=== PATIENT | male | born 1960 | race Caucasian/White ===

== ENCOUNTER 2019-08-29 11:12 | Emergency (ER) | payer OTHER, SELFPAY ==
[2019-08-29 11:17] VITALS: BP 171/109; PULSE 96; RESP 16; TEMP 36.6; O2SAT 98; BMI 23.7
--- NOTE | 2019-08-29 11:49 | XRR_ITS ---
PROCEDURE INFORMATION: Exam: XR Right Shoulder Exam date and time: 08/29/2019 12:09 PM Age: 58 years old Clinical indication: Right; Patient HX: Pain, shoulder popped in and out TECHNIQUE: Imaging protocol: XR Right shoulder. Views: 2 or more views. COMPARISON: No relevant prior studies available. FINDINGS: Bones/joints: There is moderate glenohumeral joint degeneration, with joint space loss. Mild widening of the acromioclavicular joint may be postoperative in nature. Soft tissues: Normal. XR/XR shoulder RT min 2V* [id number] IMPRESSION: No acute abnormality.
--- NOTE | 2019-08-29 11:49 | XRR_ITS ---
PROCEDURE INFORMATION: Exam: XR Right Clavicle, Complete Exam date and time: 08/29/2019 12:09 PM Age: 58 years old Clinical indication: Pain; Right; Patient HX: Shoulder popped in and out; Additional info: Pain/injury TECHNIQUE: Imaging protocol: XR Right clavicle complete. Any number of views. COMPARISON: No relevant prior studies available. FINDINGS: Bones/joints: There is no acute fracture or dislocation. There is widening of the acromioclavicular joint, potentially postoperative in nature. Clinical correlation is recommended. Soft tissues: Normal. XR/[place] [id number] IMPRESSION: No acute abnormality.
--- NOTE | 2019-08-29 12:51 | W.ED.GENADLT ---
HPI - General Adult General: Chief complaint: General Medical Stated complaint: knot in [place] Time Seen by Provider: 08/29/19 12:42 Source: patient Mode of arrival: ambulatory Limitations: no limitations History of Present Illness: HPI narrative: Mr. Dunlap is a nice 58-year-old male who comes in complaining of right mid clavicle pain. Patient states he dislocated his shoulder not long ago and since that time he has had continued pain to the mid right clavicle. He denies any pain to the medial or lateral portion but only to the middle portion and he states there is associated swelling. Associated symptoms: Deny chest pain, dyspnea, headache(s), nausea, rash, palpitations, syncope or vomiting Review of Systems Const: Denies: fever(s) Eyes: Denies: change in vision ENMT: Denies: throat pain Card: Denies: chest pain, palpitations, syncope, pre-syncope or dyspnea on exertion Resp: Denies: dyspnea, productive cough or non-productive cough GI: Denies: abdominal pain, nausea, vomiting or diarrhea : Denies: flank pain, dysuria, urinary frequency or urinary urgency Musc: Denies: neck pain, back pain or extremity pain Skin/Breast: Denies: rash or pruritus Neuro: Denies: headache(s), numbness in extremities, weakness in extremities or dizziness Jasbir/Lymph: Denies: easy bruising or easy bleeding All/Imm: Denies: urticaria PFSH ED PFSH: Social History Smoking and tobacco status: current every day smoker Physical Exam Const: COMMON NORMALS: no acute distress, patient oriented x3, no limitations, healthy appearing and well nourished GENERAL APPEARANCE: cooperative, well kempt and well developed HENMT: COMMON NORMALS: normocephalic, atraumatic, external ears normal, EAC's normal and Normal external nose present HEAD & SCALP: normal to inspection, normocephalic and atraumatic FACE & SINUS: normal facial exam and face symmetric NOSE: Normal external nose present and Normal nares present EXTERNAL EAR: Yes external ears normal EXTERNAL AUDITORY CANAL: EAC's normal MOUTH: Normal oral and palatal mucosa present, lip normal and tongue normal Eye: COMMON NORMALS: Equal, round and reactive pupils present and conjunctivae normal GENERAL EYE: appearance normal, both eyes and all related structures ALIGNMENT: Yes alignment normal PERIORBITAL: periorbital findings normal EYELID: eyelids normal CONJUNCTIVA: Yes conjunctivae normal SCLERA: sclerae normal PUPIL: Yes Equal, round and reactive pupils present Neck/C-Spine: COMMON NORMALS: full ROM, no lymphadenopathy, supple, no meningeal signs and no JVD GENERAL: Yes normal visual inspection and Yes trachea midline Chest: COMMONS NORMALS: normal inspection of the chest and normal palpation of entire chest wall Resp: COMMON NORMALS: normal respiratory effort, No retractions and No use of accessory muscles EFFORT & INSPECTION: Yes able to speak in complete sentences and Yes symmetric chest movement AUSCULTATION: no crackles, no rales, no rhonchi and no wheezes Cardio: COMMON NORMALS: no JVD, regular rate, regular rhythm, S1 normal heart sound present and S2 normal heart sound present RATE: regular rate RHYTHM: regular rhythm HEART SOUNDS: S1 normal heart sound present, S2 normal heart sound present, no click, no gallops, no murmurs, no rubs and abnormal split S2 GI: COMMON NORMALS: Soft to palpation and No hepatosplenomegaly present PALPATION: Yes Soft to palpation, No Tenderness to palpation present (GI), No Guarding due to palpation present (GI), No Rigid due to palpation, Yes No hepatosplenomegaly present, No Hernia present, No Palpable mass present and No Pulsatile mass present : COMMON NORMALS: Yes no CVA tenderness BLADDER/KIDNEY EXAM: Yes no CVA tenderness Back/Pelvis: COMMON NORMALS: no CVA tenderness, thoracic and lumbar spine normal to inspection, no thoracic nor lumbar tenderness and thoraco-lumbar ROM normal Extremity: COMMON NORMALS: normal to inspection, full ROM, capillary refill normal, no joint enlargement, no clubbing, cyanosis or edema and no calf tenderness NARRATIVE EXTREMITY EXAM: Minimal swelling noted to the mid right clavicle. Sternoclavicular joint is normal. Acromioclavicular joint shows history of surgery but no other acute findings. Neuro: COMMON NORMALS: patient oriented x3, CN's II-XII intact bilaterally, moves all extremities, no focal motor deficits and no sensory deficits noted MENINGEAL SIGNS: Yes no meningeal signs SPEECH: speech normal Psych: COMMON NORMALS: mental status grossly normal, Normal thought process present, cooperative, normal affect, speech normal and activity/motor behavior normal APPEARANCE: Yes well kempt SPEECH: Yes normal speech THOUGHT PROCESS: Normal thought process present Skin: COMMON NORMALS: no rashes or lesions noted, turgor normal, no jaundice, no petechiae and no mottling GENERAL SKIN EXAM: no rashes or lesions noted and turgor normal Course Vital Signs: Vital signs: Vital Signs Temperature 97.8 F 08/29/19 11:17 Pulse Rate 96 08/29/19 11:17 Respiratory Rate 18 08/29/19 12:59 Blood Pressure 132/96 08/29/19 12:59 Pulse Oximetry 98 08/29/19 11:17 MDM - General Adult MDM Narrative: Medical decision making narrative: Patient's history and exam do not suggest sternoclavicular joint dislocation. Nonetheless I have recommended we CT the patient's clavicle and sternoclavicular joints to rule out any occult dislocation. The patient is refusing at this time he states he just wanted to make sure his clavicle was not broken. Clinically he does have some pain in the medial aspect far away from the sternoclavicular joint but I see no fracture on x-ray. Patient still refuses even though I have discussed with him the seriousness of a sternoclavicular joint dislocation, especially if it did go posterior but he states he is never had any pain in this area. He understands the seriousness but still declines testing. He understands he is free to return should he change his mind. The patient was warned but he was also welcome to return. Imaging Data^: Right Shoulder: My impression: No acute musculoskeletal findings. Right Clavicle: My impression: No acute musculoskeletal findings. No fractures or dislocations Discharge Plan Discharge Patient Disposition: Home, Self-Care Clinical Impression: Right shoulder strain Qualifiers: Encounter type: subsequent encounter Qualified Code(s): S46.911D - Strain of unspecified muscle, fascia and tendon at shoulder and upper arm level, right arm, subsequent encounter Condition: Stable Discharge Orders: Discharge Order (Routine); Ordered 08/29/19 Ordered By: Catalina Patricia Referrals: Rosendo Alaniz DO [Primary Care Provider] - Discharge Diet: Advance as tolerated Discharge Activity: Increase activity as tolerated Patient Instructions: Rotator Cuff Injury (ED) Activity Restrictions/Additional Instructions: Please return to the ER immediately for any of the signs or symptoms listed on your discharge instruction sheets, worsening/changing of your symptoms, you are not getting better as quickly as expected, or for ANY other cause or concerns. I have recommended and offered to do a CT scan to evaluate for any injury or disruption at the junction with your clavicle and sternum. Dislocations that go posteriorly in this area can be even life-threatening. You have declined this test but if you change your mind or your symptoms change or worsen you are more than free to return to the ER at any time for recheck. Be certain to follow-up with orthopedic doctor of your choice for your recurrent shoulder problems. Discharge Date/Time: 08/29/19 13:00 Coding Level of Care Code ED Maintenance And Custodian Supervisor for Dale White Exam Comprehensive
[2019-08-29 12:59] VITALS: BP 132/96; RESP 18
== END 2019-08-29 13:00 | disposition home or self-care (01) ==
PROVIDERS: Emergency Provider Emergency Medicine; Family Provider Emergency Medicine Emergency Medical Services; PCP Emergency Medicine Emergency Medical Services
DX: S46.811A Strain of other muscles, fascia and tendons at shoulder and upper arm level, right arm, initial encounter (principal); X58.XXXA Exposure to other specified factors, initial encounter; F17.210 Nicotine dependence, cigarettes, uncomplicated
CPT/HCPCS: 12345; 73000; 73030; 99281; 99283

== ENCOUNTER 2019-09-02 12:44 | Emergency (ER) | payer OTHER, SELFPAY ==
[2019-09-02 12:55] VITALS: BP 168/107; PULSE 100; RESP 14; TEMP 36.6; O2SAT 97; BMI 23.7
--- NOTE | 2019-09-02 13:32 | W.ED.BACK ---
HPI - Back Pain/Injury General: Chief Complaint: Back Pain/Injury Stated Complaint: back pain Time Seen by Provider: 09/02/19 13:12 PFSH ED PFSH: Social History Smoking and tobacco status: current every day smoker Course Vital Signs: Vital signs: Vital Signs Temperature 97.9 F 09/02/19 12:55 Pulse Rate 100 09/02/19 12:55 Respiratory Rate 14 09/02/19 12:55 Blood Pressure 168/107 09/02/19 12:55 Pulse Oximetry 97 09/02/19 12:55 Discharge Plan Discharge Patient Disposition: Left Against Medical Advice Condition: Good Referrals: Rosendo Alaniz DO [Primary Care Provider] - Discharge Date/Time: 09/02/19 13:43 Coding Level of Care Code ED Solar Design Engineer for Dale White
== END 2019-09-02 13:43 | disposition left against medical advice (07) ==
PROVIDERS: Emergency Provider Nurse Practitioner Family; PCP Emergency Medicine Emergency Medical Services
DX: M54.9 Dorsalgia, unspecified (principal); Z53.21 Procedure and treatment not carried out due to patient leaving prior to being seen by health care provider; F17.210 Nicotine dependence, cigarettes, uncomplicated
CPT/HCPCS: 12345; 99281

== ENCOUNTER 2019-09-27 13:40 | Outpatient (CLI) | payer OTHER, SELFPAY ==
--- NOTE | 2019-09-27 15:15 | XRR_ITS ---
PROCEDURE INFORMATION: Exam: XR Abdomen, 1 View Exam date and time: 09/27/2019 1:54 PM Age: 59 years old Clinical indication: Condition or disease; Kidney or ureter condition; Calculus (stone) in ureter; Patient HX: Follow up right ureteral stone; Additional info: Stones TECHNIQUE: Imaging protocol: XR of the abdomen. Views: Frontal supine view of the abdomen. 1 View. COMPARISON: CT Abdomen/Pelvis [facility] [id number] 09/16/2019 11:03 PM FINDINGS: Gastrointestinal tract: The bowel gas pattern is otherwise unremarkable. Organs: There is a calcified urinary tract stone in the distal right ureter measuring 5.2 mm x 6.5 mm. This finding is above the level of the ischial spine in the pelvis and appears to have migrated from the proximal ureter comparing to prior examination. Negative for additional radiodense urinary tract stones. Bones/joints: Lumbar spine discloses bony bridging left side L2-L3 XR/XR KUB [id number] IMPRESSION: 1. Calcified urinary tract stone distal right ureter 2. Otherwise negative examination
== END 2019-09-27 13:41 | disposition home or self-care (01) ==
LOC: RAD 13:41
PROVIDERS: PCP Emergency Medicine Emergency Medical Services; Visit Provider Urology
DX: N20.1 Calculus of ureter (principal)
CPT/HCPCS: 74018; 81001

== ENCOUNTER 2019-10-03 15:34 | Outpatient (CLI) | payer OTHER, SELFPAY ==
--- NOTE | 2019-10-03 16:00 | XRR_ITS ---
PROCEDURE INFORMATION: Exam: XR Abdomen, 1 View Exam date and time: 10/03/2019 4:00 PM Age: 59 years old Clinical indication: Condition or disease; Kidney or ureter condition; Calculus (stone) in ureter; Prior surgery; Surgery type: Lithotripsy; Additional info: Ureteral stone TECHNIQUE: Imaging protocol: XR of the abdomen. Views: Frontal supine view of the abdomen. 1 View. COMPARISON: CR XR KUB [id number] 09/27/2019 1:51 PM FINDINGS: Gastrointestinal tract: Unremarkable. No bowel dilation. Intraperitoneal space: The previous right ureteral calculus overlying the right L4 paraspinal region appears to have progressed the right mid pelvis, proximally 4-5 cm above the expected location of the ureterovesical junction Organs: Multiple small bilateral renal caliceal calculi which appear stable. Vasculature: Calcified phleboliths are present in the lower pelvis bilaterally. Bones/joints: Lumbar spine vertebral body marginal osteophytes are noted at multiple levels. XR/XR KUB [id number] IMPRESSION: 1. Caudal progression of the right ureteral calculus. 2. Multiple small bilateral renal caliceal calculi which appear stable.
== END 2019-10-03 15:35 | disposition home or self-care (01) ==
LOC: RAD 15:35
PROVIDERS: PCP Emergency Medicine Emergency Medical Services; Visit Provider Nurse Practitioner Family
DX: N20.1 Calculus of ureter (principal); N20.0 Calculus of kidney
CPT/HCPCS: 74018; 81001

== ENCOUNTER 2019-10-10 16:03 | Day surgery (SDC) | payer OTHER, SELFPAY ==
[2019-10-10] VITALS (7 sets, daily range): BP systolic 146–165; BP diastolic 97–132; PULSE 73–92; RESP 13–20; TEMP 36.5–36.8; O2SAT 95–99
--- NOTE | 2019-10-10 16:05 | XR_ITS ---
WS: [id number] ABDOMEN 1 VIEW(S) HISTORY: Preop right distal ureteral stone ESWL COMPARISON: 09/16/2019 Slight increased amount of air throughout the small bowel. No definite renal or ureteral calcifications. There are several calcifications in the pelvis which ar e probably phleboliths. No bone abnormality. XR/XR KUB [id number] IMPRESSION: No definite ureteral or renal calcifications identified. Calcifications in the pelvis may all be phleboliths.
--- NOTE | 2019-10-10 16:10 | ANES.PREANE2 ---
Pre-Anesthetic Assessment Pre-Anesthetic Assessment: Height/Weight: Height 1.83 m Weight 80.739 kg Preop Diagnosis: Right distal ureteral stone Proposed Procedure: Operation Date: 10/10/19 16:15 Proposed Procedures p Cystoscopy 59899 57702 N20.1(Not Applicable) - MD devin Billings Ureteral Stent Placement(Right) - MD devin Billings ESWL(Not Applicable) - Nathaniel Mata MD Familial anesthetic complications: Wakes up agitated, required BZDs Was Beta Paulina taken within 24 hours: N/A Last intake: NPO > 8 hrs water at 1030 Social: Social History: Tobacco Exam: Pre-Anes Outpt Exam: alert, oriented x 3, clear to auscultation bilaterally and regular rate & rhythm Airway: Cervical ROM: WNL MP: 2 Dentition: False CV/HEM: Comments: Atypica chest pain worked up in 2017 - normal echo and stress test Metabolic: Metabolic: Hyperlipidemia Neuropsych: Comments: L ICA stenosis - 27% in 2017 Anesthetic Plan: ASA status: 2 Anesthesia: General Risk of > 500 ml blood loss (7ml/kg in children): No PFSH Anesthesia PFSH: Medical History Bilateral renal stones S/P extracorporeal shock wave therapy Ureteral calculus, right Surgical History H/O knee surgery History of shoulder surgery Hx of cataract surgery bilateral Family History Mother , at age 69 Renal failure Social History Smoking and tobacco status: current every day smoker Alcohol intake: never Marital status: Current occupational status: retired History of recent travel: No Data Anesthesia Cardiac Studies: No Data to Display
--- NOTE | 2019-10-10 16:19 | P.OP_ITS ---
Operative Report Date of procedure: October 10, 2019 Pre-op Diagnosis: Right distal ureteral stone Post-op diagnosis: same Procedure Done: 1. Cystoscopy with right ureteral stent placement 2. Extracorporeal shockwave lithotripsy right ureteral stone Pathology: none sent Surgeon: Adolfo System Developer Associate Manager: Lise Anesthesia: General Estimated blood loss: None Complications: None Condition: stable Disposition: PACU Brief History: Mr. Eaton is a very pleasant 59-year-old white male with a history of recurrent urolithiasis who was recently diagnosed with a right mid ureteral stone on CT scan at [facility]. The stone slowly progressed to the distal ureter with intermittent symptoms consistent with renal colic but no evidence of systemic infection or local infectious symptoms. Ultimately due to the slow progression of the stone he elected treatment and given the options including ESWL versus endoscopy he chose the former. Plan would be to perform ESWL first and then stent based on response. Procedure: After routine preoperative evaluation examination and obtaining of informed consent he was taken to the operating suite on 10/10/2019 where general anesthesia was administered without difficulty after appropriate timeout was performed, SCDs confirmed to be functioning, preoperative antibiotics administered, beta-shira protocol confirmed. Patient on the Dornier unit such that the stone was located at the focal point utilizing biplanar fluoroscopy. Shock head was positioned anteriorly. The stone was easily identified. Shockwave therapy was initiated at a rate of 60 and advanced over time to a rate of 90. Intensity of 1 was initiated and advanced to an intensity of 5. A total of 3000 shocks were administered to the stone. Some change was noted but it was not clear that the stone was fragmented enough that the particles w ould pass. For that reason it was decided to leave a stent in place. He was repositioned and dorsolithotomy position pain careful attention to avoiding pressure points. 21 Belarusian cystoscope was introduced into the well-lubricated urethra and a flexible guidewire was advanced up the right ureter bypassing the stone in the distal ureter. A 6 Bel[place]ian by 30 cm double-pigtail stent without string was passed without difficulty over the guidewire through the cystoscope into appropriate position as confirmed via fluoroscopy and cystoscopy. The bladder was drained after confirming stent was functioning well. Tolerated the procedure well without complications and was awakened in the operating room and returned to the recovery room in stable condition. PLANS: 1. Follow-up next week with KUB and possible stent removal.
--- NOTE | 2019-10-10 16:23 | P.HPUD_ITS ---
Surgery/Procedure H&P Update DATE OF PROCEDURE: October 10, 2019 DATE H&P PERFORMED: 09/27/19 H&P UPDATE INFORMATION: I have reviewed H&P completed within last 30 days, I have examined patient prior to procedure, No changes to prior documentation and H&P is in [facility] [place] date indicated PREOP DIAGNOSIS: Right distal ureteral stone PLANNED PROCEDURE: Operation Date: 10/10/19 16:15 Proposed Procedures p Cystoscopy [id number] N20.1(Not Applicable) - Nathaniel Mata MD s Ureteral Stent Placement(Right) - Nathaniel Mata MD s ESWL(Not Applicable) - Nathaniel Mata MD
[2019-10-10] MEDS: levofloxacin-dextrose 5 % 500 MG/100 ML PREMIX 100 MG IV (16:31)
[2019-10-10] MEDS: sodium chloride 0.9% 1,000 ML 30 ML IV (16:32)
== END 2019-10-10 18:35 | disposition home or self-care (01) ==
PROVIDERS: PCP Emergency Medicine Emergency Medical Services; Visit Provider Urology
PROC: 0TJB8ZZ Inspection of Bladder, Via Natural or Artificial Opening Endoscopic (ICD-10-PCS; CPT 52000; principal; 2019-10-10 15:40)
PROC: (CPT 50605; 2019-10-10 15:40)
PROC: (CPT 50590; 2019-10-10 15:40)
DX: N20.1 Calculus of ureter (principal); E78.5 Hyperlipidemia, unspecified; F17.210 Nicotine dependence, cigarettes, uncomplicated; Z79.82 Long term (current) use of aspirin
CPT/HCPCS: 50590; 52332; 12345; 74018; C2625; J1100; J1956; J2405; J2704; J3010; J3490; J7030

== ENCOUNTER 2019-10-19 09:42 | Outpatient (CLI) | payer OTHER, SELFPAY ==
--- NOTE | 2019-10-19 09:49 | XR_ITS ---
WS: [id number] KUB, 10/19/2019 Clinical Data: stones Comparison: KUB, 10/10/2019. Findings: No abnormal intraabdominal masses are seen. There is no dilatated small bowel or evidence of obstruc tion. There is a right ureteral catheter extending from the right renal pelvis to the bladder. There is a c alcification overlying the right side of the sacrum which may be within the distal right ureter. Ther e are phleboliths on the right side of the true pelvis. Degenerative changes of the lower lumbar vert ebral bodies are moderate. XR/XR KUB [id number] Impression: Satisfactory position of right ureteral catheter with possible distal right ure teral calculus.
== END 2019-10-19 09:43 | disposition home or self-care (01) ==
PROVIDERS: PCP Emergency Medicine Emergency Medical Services; Visit Provider Urology
DX: N20.0 Calculus of kidney (principal); Z96.0 Presence of urogenital implants
CPT/HCPCS: 74018; 81001

== ENCOUNTER 2019-11-02 07:42 | Outpatient (CLI) | payer OTHER, SELFPAY ==
--- NOTE | 2019-11-02 07:15 | XRR_ITS ---
PROCEDURE INFORMATION: Exam: XR Abdomen, 1 View Exam date and time: 11/02/2019 7:54 AM Age: 59 years old Clinical indication: Condition or disease; Other: Stone; Prior surgery; Surgery type: Lipthotripsy TECHNIQUE: Imaging protocol: XR of the abdomen. Views: Frontal supine view of the abdomen. 1 View. COMPARISON: CR XR KUB [id number] 10/19/2019 10:00 AM FINDINGS: Gastrointestinal tract: No dilated bowel loops identified to suggest obstruction. Bones/joints: Moderate degenerative changes of the lumbar spine. Other: Many small calcifications in the pelvis, compatible with phleboliths. Previously seen calcification overlying right ureteral stent is not identified, consistent with passage of stone. XR/XR KUB [id number] IMPRESSION: 1. Previously seen calcification overlying right ureteral stent is not identified, consistent with passage of stone.
== END 2019-11-02 07:43 | disposition home or self-care (01) ==
PROVIDERS: PCP Emergency Medicine Emergency Medical Services; Visit Provider Urology
DX: N20.1 Calculus of ureter (principal); Z96.0 Presence of urogenital implants
CPT/HCPCS: 74018; 81001

== ENCOUNTER 2019-11-28 11:25 | Emergency (ER) | payer OTHER, SELFPAY ==
[2019-11-28 11:27] VITALS: BP 183/101; PULSE 115; RESP 14; TEMP 36.3; O2SAT 98; BMI 23.7
--- NOTE | 2019-11-28 11:29 | XRR_ITS ---
PROCEDURE INFORMATION: Exam: XR Left Ribs with PA Chest, 3 Views Exam date and time: 11/28/2019 12:08 PM Age: 59 years old Clinical indication: Injury or trauma; Initial encounter; Rib area, left side; Blunt trauma; Injury date: 11/17/19; Injury details: Fall off ladder; Additional info: Rib pain after fall from ladder TECHNIQUE: Imaging protocol: XR Left ribs 3 views with PA chest. COMPARISON: CR Chest 1 [place] [id number] 08/19/2016 5:26 AM FINDINGS: Lungs: Unremarkable. No consolidation. Pleural space: No pleural effusion. No pneumothorax. Heart/Mediastinum: No cardiomegaly. Bones/joints: Possible nondisplaced anterolateral left 9th rib fracture near the costochondral junction. XR/XR ribs LT mn 3V w CXR1V [id number] IMPRESSION: Possible nondisplaced anterolateral left 9th rib fracture near the costochondral junction. Clinical correlation with manual palpation is recommended.
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
--- NOTE | 2019-11-28 12:10 | PC.NURSE ---
patient returned from xray, tolerated well
[2019-11-28 12:46] LABS: Basophils # 0.1 10^3/uL (0.0-0.1); Basophils % 0.8 %; Eosinophils # 0.2 10^3/uL (0.0-0.8); Eosinophils % 2.2 %; Hematocrit 44.3 % (42.0-52.0); Hemoglobin 14.2 g/dL (11.7-16.6); Lymphocytes # 2.6 10^3/uL (0.8-4.8); Mean Corpuscular HGB Conc 32.1 g/dL (30.0-36.0); Mean Corpuscular Hemoglobin 30.7 pg (28.0-34.0); Mean Corpuscular Volume 95.9 fL (80-94); Mean Platelet Volume 9.6 fL (7.4-10.4); Monocytes # 0.7 10^3/uL (0.2-0.9); Neutrophils # 4.33 10^3/uL (1.8-7.7); Neutrophils % 54.7 %; Nucleated Red Blood Cells % 0 %; Platelet Count 255 10^3/cmm (130-400); Red Blood Count 4.62 10^6/uL (4.1-5.3); Red Cell Distribution Width 13.5 % (12.1-15.1); White Blood Count 7.9 10^3/uL (4.0-10.0)
[2019-11-28 13:00] LABS: Add Urine Microscopic? NO
[2019-11-28 13:02] LABS: Anion Gap 12.5 (5-19); Blood Urea Nitrogen 11 mg/dL (6-20); Carbon Dioxide 28 mmol/L (22-29); Chloride 105 mmol/L (98-107); Glucose 117 mg/dL (65-115); Osmolality Calculated 292 mOsm/kg (285-295); Potassium 4.5 mmol/L (3.5-5.1); Sodium 141 mmol/L (136-145)
[2019-11-28 13:05] LABS: Bilirubin Urine Neg (Negative); Blood Urine Neg (Negative); Glucose Urine UA Norm (Normal); Ketones Urine Negative (Negative); Leukocyte Esterase Urine Negative (Negative); Nitrate Urine Negative (Negative); Protein Urine Neg (Negative); Specific Gravity, Urine 1.005 (1.005-1.030); Urine Appearance Clear (CLEAR); Urine Color Yellow (Yellow); Urobilinogen Urine Norm (Negative); pH Urine 6 (5-7)
[2019-11-28 13:28] VITALS: BP 152/106; PULSE 109; RESP 18; O2SAT 98
== END 2019-11-28 13:28 | disposition home or self-care (01) ==
PROVIDERS: Emergency Provider Family Medicine; PCP Emergency Medicine Emergency Medical Services
DX: S22.32XA Fracture of one rib, left side, initial encounter for closed fracture (principal); Z79.82 Long term (current) use of aspirin; F17.210 Nicotine dependence, cigarettes, uncomplicated; W11.XXXA Fall on and from ladder, initial encounter
CPT/HCPCS: 12345; 36415; 71101; 80048; 81003; 85025; 99283

== ENCOUNTER 2020-05-31 12:53 | Emergency (ER) | payer OTHER, SELFPAY ==
[2020-05-31 12:57] VITALS: BP 145/95; PULSE 110; RESP 18; TEMP 36.7; O2SAT 98; BMI 25.7
--- NOTE | 2020-05-31 14:25 | W.ED.EAR ---
HPI - Ear Problem General: Chief complaint: Eye Problems Stated complaint: LT EYE PAIN /LT EAR BLOOD Time Seen by Provider: 05/31/20 13:30 Source: patient Mode of arrival: ambulatory Limitations: no limitations History of Present Illness: HPI Narrative: Patient is a 59-year-old male who presents to ED today for evaluation of bleeding from his left ear. Patient tells me a few weeks ago he began noticing a small area of visual loss to his left superior visual field. Patient states he did not seem overly concerned as he has known cataracts. [facility] for [facility] evaluation. He has no eye pain. Patient states today he noticed some bloody discharge from his left ear. He states he became concerned that the two could somehow be connected. He has not had any injury or trauma to his ear. He admittedly cleans his ears meticulously with Q-tips. He is not having any pain to his left ear. No tinnitus or hearing loss. MD Complaint: ear discharge Location: left ear Duration: resolved Severity: mild Relieving factors: nothing Exacerbating factors: nothing Discharge from ear: yes - bloody Associated symptoms: Reports no associated symptoms; Denies ear or mastoid pain, fever(s), headache(s), neck pain or tinnitus Treatment prior to arrival: none Review of Systems Const: Denies: fever(s), chills, body aches or fatigue Eyes: Reports: change in vision and blind spots; Denies: blurry vision, photophobia, eye discomfort, eye discharge, floaters or seeing flashes ENMT: Reports: ear discharge (bloody); Denies: throat pain, enlarged tonsils, odynophagia, swelling of lips/tongue, oral sores, ear or mastoid pain, change in hearing, tinnitus, nasal discharge, nasal congestion, epistaxis, post nasal drip or sinus pain Card: Denies: chest pain Resp: Denies: dyspnea, productive cough or non-productive cough GI: Denies: nausea or vomiting Musc: Denies: neck pain Neuro: Denies: headache(s) All/Imm: Denies: facial swelling or seasonal rhinorrhea PFS ED PFSH: Medical History (Updated 05/31/20 @ 14:26 by KAMILA Marrero) Bilateral renal stones S/P extracorporeal shock wave therapy Ureteral calculus, right Surgical History H/O knee surgery History of shoulder surgery Hx of cataract surgery bilateral Family History Mother , at age 69 Renal failure Social History Smoking and tobacco status: current every day smoker Alcohol intake: never Marital status: Current occupational status: retired History of recent travel: No Physical Exam Const: COMMON NORMALS: no acute distress, average body habitus, patient oriented x3, no limitations, healthy appearing, alert and well nourished GENERAL APPEARANCE: cooperative HENMT: COMMON NORMALS: normocephalic, atraumatic, hearing grossly normal bilaterally, external ears normal, TM's normal bilaterally, Normal external nose present, Normal nasal mucous membranes and turbinates present, moist oral mucous membranes and oropharynx normal HEAD & SCALP: normal to inspection, normocephalic and atraumatic FACE & SINUS: normal facial exam and sinuses nontender NOSE: Normal external nose present and Normal nasal mucous membranes and turbinates present EXTERNAL EAR: Yes external ears normal EXTERNAL AUDITORY CANAL: Abnormal EAC present (abraded area to L floor of EAC with small amount of blood present) TYMPANIC MEMBRANE: TM's normal bilaterally Eye: COMMON NORMALS: Equal, round and reactive pupils present, EOMs intact bilaterally and conjunctivae normal GENERAL EYE: appearance normal, both eyes and all related structures and normal light reflex VISUAL BLAKE: No peripheral vision loss ALIGNMENT: Yes alignment normal PERIORBITAL: periorbital findings normal EYELID: eyelids normal CONJUNCTIVA: Yes conjunctivae normal SCLERA: sclerae normal CORNEA: Yes corneas normal PUPIL: Yes Equal, round and reactive pupils present DIRECT OPHTHALMOSCOPY: Yes normal light reflex Neck/C-Spine: COMMON NORMALS: full ROM CERVICAL SPINE: No pain with cervical ROM Neuro: COMMON NORMALS: patient oriented x3 SENSORIUM/ORIENTATION: Yes alert Course Vital Signs: Vital signs: Vital Signs Temperature 98.1 F 05/31/20 12:57 Pulse Rate 110 H 05/31/20 12:57 Respiratory Rate 18 05/31/20 12:57 Blood Pressure 145/95 05/31/20 12:57 Pulse Oximetry 98 05/31/20 12:57 MDM - Ear MDM Narrative: Medical decision making narrative: Patient states he is not concerned about his vision changes today and states he would like to continue to follow-up with ophthalmology as scheduled. I reassured him that his complaints today are in no way related. He has a small abrasion to the floor of his left EAC. TM is normal. Return to ED precautions given. Discharge Plan Discharge Patient Disposition: Home Clinical Impression: Irritation of external auditory canal Qualifiers: Laterality: left Qualified Code(s): H61.892 - Other specified disorders of left external ear Condition: Stable Prescriptions: No Action aspirin [Aspir-81] 81 mg tablet,delayed release (DR/EC) 81 mg PO DAILY RF: 0 loratadine 10 mg tablet 10 mg PO DAILY RF: 0 lisinopril 5 mg tablet 5 mg PO DAILY RF: 0 omeprazole 20 mg capsule,delayed release(DR/EC) 20 mg PO DAILY RF: 0 tamsulosin 0.4 mg capsule 0.4 mg PO DAILY RF: 0 multivitamin Tablet 1 tab PO DAILY RF: 0 super beta pros 1 cap caudal block DAILY RF: 0 cyclobenzaprine 5 mg tablet 5 mg PO BID PRN (Reason: Pain) RF: 0 meloxicam 15 mg tablet 15 mg PO DAILY RF: 0 hydrocodone-acetaminophen 5-325 mg tablet 1 tab PO Q6H PRN (Reason: Renal colic) 4 Days Qty: 16 RF: 0 ibuprofen 800 mg Tablet 800 mg PO Q6H PRN (Reason: FEVER/PAIN) RF: 0 magnesium 250 mg Tablet 250 mg PO DAILY RF: 0 bupropion HCl [Wellbutrin XL] 150 mg Tablet Extended Release 24 Hr 150 mg PO QAM RF: 0 Discharge Orders: Discharge ED (Routine); Ordered 05/31/20 Ordered By: Janis Cancino Referrals: Rosendo Alaniz DO [Primary Care Provider] - Coding Level of Care Code ED [employer]
== END 2020-05-31 14:53 | disposition home or self-care (01) ==
PROVIDERS: Emergency Provider Physician Assistant; PCP Emergency Medicine Emergency Medical Services
DX: H61.892 Other specified disorders of left external ear (principal); Z79.82 Long term (current) use of aspirin; F17.210 Nicotine dependence, cigarettes, uncomplicated
CPT/HCPCS: 99282

== ENCOUNTER 2020-06-13 20:00 | Outpatient (CLI) | payer OTHER, SELFPAY | END 2020-06-13 20:01 | disposition home or self-care (01) | LOC: SLEEP 06-14 08:25 | PROVIDERS: PCP Emergency Medicine Emergency Medical Services; Visit Provider Emergency Medicine Emergency Medical Services | DX: G47.10 Hypersomnia, unspecified (principal); R06.83 Snoring; R53.83 Other fatigue | CPT/HCPCS: 95810 ==

== ENCOUNTER 2020-10-31 07:08 | Outpatient (CLI) | payer OTHER, SELFPAY ==
--- NOTE | 2020-10-31 07:30 | XR_ITS ---
WS: [id number] Exam: XR KUB [id number] Date/Time of Exam: 10/31/2020 7:14 AM Reason For Exam: BILATERAL RENAL STONES Comparison 11/02/2019. Multiple small calcification superimpose both kidneys suggesting bilateral renal stones. The largest measuring about 3 mm at greatest diameter. No bowel obstruction or free air. Visualized organ margins are unremarkable. Bilateral pelvic calcifications noted which are probably phleboliths. Regional bon y structures are unremarkable. Degenerative changes in the lumbar spine. XR/XR KUB [id number] IMPRESSION: 1. Multiple small calcification superimpose both kidneys suggesting bilateral r enal calculi. 2. No acute finding.
== END 2020-10-31 07:09 | disposition home or self-care (01) ==
PROVIDERS: PCP Emergency Medicine Emergency Medical Services; Visit Provider Urology
DX: N20.0 Calculus of kidney (principal)
CPT/HCPCS: 74018; 81003

== ENCOUNTER → 2020-12-17 08:27 | Outpatient (BNVA) | payer OTHER, SELFPAY | PROVIDERS: PCP Emergency Medicine Emergency Medical Services; Visit Provider Urology | DX: N20.0 Calculus of kidney (principal) | CPT/HCPCS: 80048; 81003; 82131; 82140; 82340; 82436; 82507; 82570; 83735; 83935; 84100; 84300; 84550 ==

== ENCOUNTER → 2021-01-24 09:50 | Outpatient (BNVA) | payer OTHER, SELFPAY | PROVIDERS: PCP Emergency Medicine Emergency Medical Services; Visit Provider Urology | DX: N20.0 Calculus of kidney (principal) | CPT/HCPCS: 81003 ==

== ENCOUNTER 2021-04-09 13:04 | Outpatient (CLI) | payer OTHER, SELFPAY ==
--- NOTE | 2021-04-09 13:26 | XR_ITS ---
WS: [id number] CERVICAL SPINE FLEXION EXTENSION TECHNIQUE: 3 views of the cervical spine: lateral neutral, flexion and extension views. CLINICAL INFORMATION: CERVICALGIA COMPARISON: None. FINDINGS: Straightening of the normal cervical lordosis. Moderate spondylitic changes. Disc space narrowing wor se at C3-C4, C5-C6,C6-C7 and C7-T1 Anterior hypertrophic changes at C5-6. Normal prevertebral soft ti ssues. Normal C1-2 articulation. No instability on flexion-extension. Posterior elements are normal. No other significant findings. XR/XR cervical spine fl/ex [id number] IMPRESSION: 1. Straightening of the normal cervical lordosis. Moderate spondylitic changes . 2. No instability on flexion extension. 3. Disc space narrowing worse at C3-C4, C5-C6, C6-7, C7-T1
--- NOTE | 2021-04-09 13:26 | MR_ITS ---
WS: [id number] MRI CERVICAL SPINE NONCONTRAST HISTORY: CERVICALGIA COMPARISON: None available. Technique: Multiplanar, multisequence noncontrast imaging of the cervical spine. Moderate straightening of the normal cervical lordosis. Less than 2 mm anterolisthesis of C2. Hypertr ophic osteophytes from the vertebral bodies encroach upon the ventral thecal sac beginning at the C3- 4 level through C6-7. No fracture or marrow edema. Disc space narrowing and desiccation throughout the cervical spine. Signal within the cord demonstrat es very slight increased signal at the C3-4 level. No cord atrophy or enlargement. Craniocervical junction, C1 and C2 relationship, odontoid process and soft tissues are normal. C2-C3: Normal. C3-C4: Diffuse annular disc bulging with a central disc protrusion. Mild osteophytic ridging. Moderat e central and bilateral foraminal stenosis. C4-C5: Central disc protrusion with diffuse annular disc bulging and osteophytes. Mild central stenos is. C5-C6: Diffuse annular disc bulging with a central disc protrusion. Moderate size osteophytes extend into the foramen and along with facet joint arthritis. Moderate to severe central and bilateral marce inal stenosis. C6-C7: Diffuse disc bulging is asymmetric to the LEFT. LEFT paracentral/foraminal disc protrusion and osteophytes. LEFT foraminal disc protrusion with deformity of the nerve roots. Mild central and bila teral foraminal stenosis. C7-T1: Mild annular disc bulging. Small bilateral foraminal osteophytes and disc. Mild bilateral fora olivia narrowing. Small LEFT foraminal disc protrusion at T1-2. MR/MR cervical spin wo con* [id number] IMPRESSION: 1. Multilevel degenerative disc disease with osteophytic ridging and facet daniel nt arthritis throughout the cervical spine. 2. Moderate to severe central and bilateral foraminal stenosis at C5-6 due to disc and osteophyte disease. 3. Moderate central and bilateral foraminal stenosis at C3-4. 4. Mild central disc protrusion at C4-5. 5. Mild central and bilateral foraminal stenosis at C6-7 with a moderate LEFT paracentral disc protrusion. 6. Mild foraminal stenosis at C7-T1. 7. Very small focal increased signal in the cervical cord at the C3-4 level of the very mild myelomalacia.
== END 2021-04-09 13:05 | disposition home or self-care (01) ==
LOC: RAD 13:21
PROVIDERS: PCP Emergency Medicine Emergency Medical Services; Visit Provider Anesthesiology Pain Medicine
DX: M50.30 Other cervical disc degeneration, unspecified cervical region (principal); M48.02 Spinal stenosis, cervical region; M50.221 Other cervical disc displacement at C4-C5 level; M48.03 Spinal stenosis, cervicothoracic region
CPT/HCPCS: 72040; 72141

== ENCOUNTER 2021-04-25 12:11 | Outpatient (CLI) | payer OTHER, SELFPAY ==
--- NOTE | 2021-04-25 12:20 | XR_ITS ---
WS: [id number] KUB, AP view, 04/25/2021 Clinical Data: urolithiasis Comparison: KUB, 10/31/2020. Findings: No abnormal intraabdominal masses are seen. There is no dilatated small bowel or evidence of obstruct ion. There may be bilateral renal calcifications but the overlying fecal material and bowel gas does obscu re detail. There are phleboliths in the true pelvis. XR/XR KUB [id number] Impression: Possible bilateral renal calculi.
== END 2021-04-25 12:12 | disposition home or self-care (01) ==
LOC: RAD 12:14
PROVIDERS: PCP Emergency Medicine Emergency Medical Services; Visit Provider Urology
DX: N20.9 Urinary calculus, unspecified (principal)
CPT/HCPCS: 74018; 81003

== ENCOUNTER → 2021-07-04 10:15 | Outpatient (BNVA) | payer OTHER, SELFPAY | PROVIDERS: PCP Emergency Medicine Emergency Medical Services; Referring Provider Anesthesiology Pain Medicine; Visit Provider Orthopaedic Surgery | DX: M47.12 Other spondylosis with myelopathy, cervical region (principal) | CPT/HCPCS: 72050; 99204 ==

== ENCOUNTER 2021-08-21 14:30 | Inpatient (IN) | payer OTHER, SELFPAY ==
[2021-08-15 11:09] VITALS: BMI 23.7
[2021-08-15 12:34] LABS: Blood Urea Nitrogen 12 mg/dL (8-23); Calcium 10.1 mg/dL (8.5-10.5); Carbon Dioxide 26 mmol/L (22-29); Chloride 103 mmol/L (98-107); Glomerular Filtration Rate 98.6 mL/min (90-130); Glucose 125 mg/dL (65-115); Osmolality Calculated 291 mOsm/kg (285-295); Sodium 140 mmol/L (136-145)
--- NOTE | 2021-08-15 14:27 | P.ANESASSM_ITS ---
Pre-Anesthetic Assessment Height/Weight: Height 1.83 m Weight 79.379 kg Preop Diagnosis: Right distal ureteral stone Operation Date: 08/21/21 07:00 Proposed Procedures p ACDFC3/4 C4/5 C5/6 C6/7 ALLOGRAFT [id number]/(Not Applicable) - Alex Rosado DO Familial anesthetic complications: None Was Beta Paulina taken within 24 hours: N/A Was Clonidine taken within 24 hours: N/A Social Tobacco and No alcohol Exam alert, oriented x 3, clear to auscultation bilaterally and regular rate & rhythm Airway Submandibular: within normal limits Cervical ROM: within normal limits Mallampati: Class I Dentition: full History/ROS No significant complaints Pulmonary Chronic Obstructive Pulmonary Disease CV/HEM Hypertension METS > 4 renal stones BPH Hepatic None reported GI Gastroesophageal Reflux Disease Metabolic None reported Musc/skel Osteoarthritis/DJD Cervical myelopathy Neuropsych Neuropathy (B/L neuropathy of UE) Anesthetic Plan ASA status: 3 Anesthesia: Anesthesia Evaluation and General Other: We discussed risk and benefits of general anesthesia including PONV, sore throat (sometimes severe), corneal abrasion, positioning and peripheral nerve injuries, life threatening allergic reaction, post operative ICU admission requiring prolonged intubation, aspiration, stroke, heart attack, , and rare incidences of recall. Discussed possible 2nd PIV and arterial line PRN. Patient consents to proceed with general anesthesia. Risk of > 500 ml blood loss (7ml/kg in children): No Medications/Allergies Home Medications Medication Instructions Recorded Confirmed Last Taken Type aspirin 81 mg tablet,delayed 81 mg PO DAILY 09/27/19 08/15/21 11/28/19 History release (Aspir-) cyclobenzaprine 5 mg tablet 5 mg PO BID PRN tab 09/27/19 08/15/21 11/28/19 History lisinopril 5 mg tablet 5 mg PO DAILY 09/27/19 08/15/21 11/28/19 History loratadine 10 mg tablet 10 mg PO DAILY 09/27/19 08/15/21 11/28/19 History multivitamin 1 tab PO DAILY 09/27/19 08/15/21 11/28/19 History omeprazole 20 mg capsule,delayed 20 mg PO DAILY 09/27/19 08/15/21 11/28/19 History release super beta pros 1 cap CAUDAL BLOCK DAILY 0708/15/21 11/28/19 History bupropion HCl 150 mg 24 hr tablet, 150 mg PO QAM 10/07/19 08/15/21 11/28/19 History extended release (Wellbutrin XL) magnesium 250 mg tablet 250 mg PO DAILY 11/28/19 08/15/21 11/28/19 History fluoxetine 20 mg capsule (Prozac) 20 mg PO DAILY 10/31/20 08/15/21 Unknown History hydroxyzine HCl 25 mg tablet 25 mg PO .AT NIGHT tab 10/31/20 08/15/21 Unknown History naproxen 500 mg tablet 500 mg PO BID 10/31/20 08/15/21 Unknown History oxycodone-acetaminophen 10 mg-325 1 tab PO Q6H PRN 01/24/21 08/15/21 Unknown His tory mg tablet memory factor PO BID 04/25/21 07/04/21 Unknown History tamsulosin 0.4 mg capsule 0.8 mg PO DAILY #180 cap 04/25/21 08/15/21 Unknown Rx Bone Growth Stimulator E0748 #1 ea 08/12/21 Unknown Rx Allergies Allergy/AdvReac Type Severity Reaction Status Date / Time amoxicillin Allergy ALGY-Rash Verified 07/04/21 10:26 cephalexin [From Keflex] Allergy ADR-Dizzine Verified 07/04/21 10:26 ss Cephalosporins Allergy Unknown Verified 07/04/21 10:26 hydrochlorothiazide Allergy Unknown Verified 07/04/21 10:26 nicotine Allergy unknown Verified 07/04/21 10:26 Penicillins Allergy ALGY-Rash Verified 07/04/21 10:26 pregabalin [From Lyrica] Allergy Unknown Verified 07/04/21 10:26 simvastatin Allergy Unknown Verified 07/04/21 10:26 [facility] Anesthesia Medical History Bilateral renal stones BPH loc w urin obs/LUTS S/P extracorporeal shock wave therapy Ureteral calculus, right Surgical History H/O knee surgery History of shoulder surgery Hx of cataract surgery bilateral Family History Mother , at age 69 Renal failure Social History Smoking and tobacco status: current every day smoker Alcohol intake: never Marital status: Current occupational status: retired History of recent travel: No Data Anesthesia : 08/15/21 11:40 BMP 08/15/21 11:40 Sodium 140 Potassium 4.0 Chloride 103 Carbon Dioxide 26 BUN 12 Creatinine 0.8 Glucose 125 H Calcium 10.1 Cardiac Studies: No Data to Display
[2021-08-21] VITALS (23 sets, daily range): BP systolic 107–148; BP diastolic 76–94; PULSE 95–111; RESP 13–20; TEMP 36.2–37; O2SAT 93–100
--- NOTE | 2021-08-21 | SCC_ITS ---
Procedure done: 1. Anterior diskectomy C3/4 2. Anterior diskectomy C4/5 3. Anterior diskectomy C5/6 2. Anterior diskectomy C6/7 4. Insertion of cage C3/4 5. Insertion of cage C4/5 3. Insertion of cage C5/6 4. Insertion of Cage C6/7 5. Instrumentation with anterior plate from C3-C7 6. Use of allograft 25.2 seconds of fluoroscopic guidance, for a cumulative dose of 2.49 mGy, was provided to Dr. Rosado by the radiology department. C-arm images of the cervical spine were saved for the patient's permanent record. [facility]
[2021-08-21] MEDS: sodium chloride 0.9% 1,000 ML 30 ML IV (06:36)
--- NOTE | 2021-08-21 06:55 | P.HP_ITS ---
Providers/Chief Complaint Primary Care Provider: Rosendo Alaniz DO Chief Complaint: pre reg and rpe op History of Present Illness Park Dunlap is a 60 year old male cervical neck pain. He states his pain is 5/10 at todays visit. He states his neck has been causing him pain for a few years, but recently it has gotten worse. He states the pain is located at the back of his neck that travels and radiates down his neck, and arms. He states he experiences numbness and tingling in both his hands/fingers. He has previously tried heat pads and injections at [facility] but states they did not provide any comfort. Review of Systems General: Reports: 10 or more systems reviewed and unremarkable except in HPI and below Const: Denies: fever(s) Eyes: Denies: eye discharge ENMT: Denies: throat pain Card: Denies: chest pain Resp: Denies: dyspnea GI: Denies: nausea or vomiting : Denies: urinary incontinence Musc: Reports: neck pain, joint pain and limited range of motion Skin/Breast: Denies: rash Neuro: Reports: headache(s) and numbness in extremities Psych: Denies: anxiety Endo: Denies: polyuria Jasbir/Lymph: Denies: easy bruising All/Imm: Denies: facial swelling Medications/Allergies Home Medications Medication Instructions Recorded Confirmed Last Taken Type aspirin 81 mg tablet,delayed 81 mg PO DAILY 09/27/19 08/21/21 08/16/21 History release (Aspir-) cyclobenzaprine 5 mg tablet 5 mg PO BID PRN tab 09/27/19 08/21/21 08/20/21 History lisinopril 5 mg tablet 5 mg PO DAILY 09/27/19 08/21/21 08/20/21 History loratadine 10 mg tablet 10 mg PO DAILY 09/27/19 08/21/21 11/28/19 History multivitamin 1 tab PO DAILY 09/27/19 08/21/21 08/20/21 History omeprazole 20 mg capsule,delayed 20 mg PO DAILY 09/27/19 08/21/21 08/21/21 History release super beta pros 1 cap CAUDAL BLOCK DAILY 09/27/19 08/21/21 08/20/21 History bupropion HCl 150 mg 24 hr tablet, 150 mg PO QAM 10/07/19 08/21/21 08/20/21 History extended release (Wellbutrin XL) magnesium 250 mg tablet 250 mg PO DAILY 11/28/19 08/21/21 08/20/21 History fluoxetine 20 mg capsule (Prozac) 20 mg PO DAILY 10/31/20 08/21/21 08/20/21 History hydroxyzine HCl 25 mg tablet 25 mg PO .AT NIGHT tab 10/31/20 08/21/21 08/20/21 History naproxen 500 mg tablet 500 mg PO BID 10/31/20 08/21/21 08/20/21 History oxycodone-acetaminophen 10 mg-325 1 tab PO Q6H PRN 01/24/21 08/21/21 08/21/21 History mg tablet memory factor 1 tab PO BID 04/25/21 08/21/21 08/20/21 History tamsulosin 0.4 mg capsule 0.8 mg PO DAILY #180 cap 04/25/21 08/21/21 08/20/21 Rx Bone Growth Stimulator E0748 #1 ea 08/12/21 Unknown Rx Allergies Allergy/AdvReac Type Severity Reaction Status Date / Time amoxicillin Allergy ALGY-Rash Verified 08/21/21 06:10 cephalexin [From Keflex] Allergy ADR-Dizzine Verified 08/21/21 06:10 ss Cephalosporins Allergy Unknown Verified 08/21/21 06:10 hydrochlorothiazide Allergy Unknown Verified 08/21/21 06:10 nicotine Allergy unknown Verified 08/21/21 06:10 Penicillins Allergy ALGY-Rash Verified 08/21/21 06:10 pregabalin [From Lyrica] Allergy Unknown Verified 08/21/21 06:10 simvastatin Allergy Unknown Verified 08/21/21 06:10 PFSH Acute PFSH: Medical History Bilateral renal stones BPH loc w urin obs/LUTS S/P extracorporeal shock wave therapy Ureteral calculus, right Surgical History H/O knee surgery History of shoulder surgery Hx of cataract surgery bilateral Family History Mother , at age 69 Renal failure Social History (Reviewed 08/15/21 @ 14:27 by MAY Negro Smoking and tobacco status: current every day smoker Alcohol intake: never Marital status: Current occupational status: retired History of recent travel: No Vitals/I&O/Wt Last Vital Signs Temp 98.1 F 08/21/21 06:17 Pulse 95 08/21/21 06:17 Resp 18 08/21/21 06:17 BP 107/79 08/21/21 06:17 Pulse Ox 99 08/21/21 06:17 Physical Exam Narrative: CONSTITUTIONAL: The patient is a normal appearing [] in no apparent distress. GENERAL: Patient in no acute distress. CARDIAC: Regular rate and rhythm. CHEST: Normal inspiratory effort, normal respiratory rate. ABDOMEN: Soft and nontender. SKIN: Clear, warm and intact. NEURO?PSYCH: The patient is alert and oriented to person, place and time. Sensorv /SILT Motor StrengthShoulder abduction C5 5/5Wrist extension C6 5/5Elbow extension C7 5/5Hand Party Plan Selling Distributor C8 5/5Finger abduction T15/5 Radial/ Ulnar/ Median n intact LowerSensory (SILT)Motor StrengthHin flexion L2/3Ant/inner thigh 5/5Hip adduction L2/3 5/5Knee extension L4 Lat thigh, 5/5Toe dorsiflexion L5 5/5Ankle dorsiflexion L5/ F97Lbgtrjg flexion S1 5/5 DTRBleeps 2+Triceps 2+Brachioradialis 2+Patellar 2+Achilles 2+ MUSCULOSKELETAL: [] UPPEREXTREMITIES: The patient had full active ROM in fingers, wrist, elbow, and shoulder. The patient demonstrated ability to fully flex/extend/abduct/adduct fingers, make ok sign, cross 2nd/3rd digits, extend 1st digit fully.. Radial pulse 2+, CR<2 seconds. LOWER EXTREMITIES: Pt has full, active ROM of toes, ankle, knee, and hip. Dorsalis pedis/posterior tibialis pulses 2+, CR<2 seconds. SPINE: Skin warm, dry, intact. Data : 08/15/21 11:40 A&P Assessment and plan (1) Cervical spondylosis with myelopathy: ACDF today Status: Acute Attestations Medical Necessity Statement*: failed conservative tx Coding Level of Care Code Acute Communications Consultant for Chg Fwd Diagnoses Cervical spondylosis with myelopathy M47.12
[2021-08-21] MEDS: clindamycin 900 MG/50 ML PREMIX 100 MG IV ×3 (07:00→22:51)
--- NOTE | 2021-08-21 07:04 | P.ANESUD_ITS ---
Pre-Anesthetic Update Pre-Anesthetic Assessment: Date of Surgery/Procedure: 08/21/21 Preop Jaimie gnosis: Cervical Spondylosis w/myelopathy Proposed Procedure: Operation Date: 08/21/21 07:00 Proposed Procedures p ACDFC3/4 C4/5 C5/6 C6/7 ALLOGRAFT [id number]/(Not Applicable) - Alex Rosado, DO Any changes to Pre-Anesthetic Assessment?: No Last Intake: Intake Last Liquid Date 08/20/21 Last Liquid Time 20:00 Last Solid Date 08/20/21 Last Solid Time 18:00 Vitals: Temperature 98.1 F 08/21/21 06:17 Temperature Source Temporal Artery S can 08/21/21 06:17 Pulse Rate 95 08/21/21 06:17 Respiratory Rate 18 08/21/21 06:17 Blood Pressure 107/79 08/21/21 06:17 Blood Pressure Minoo n 88 08/21/21 06:17 Pulse Oximetry 99 08/21/21 06:17 Oxygen Delivery Me thod 08/21/21 06:17 Exam: Pre-Anes Outpt Exam: alert, oriented x 3, clear to auscultation bilaterally and regular rate & rhythm Cardiac Studies: No Data to Display
--- NOTE | 2021-08-21 09:52 | XR_ITS ---
WS: [id number] C-arm fluoroscopy of the cervical spine, 08/21/2021 Clinical Data: OR PICS Comparison: Cervical spine, 07/04/2021 Findings: There is an anterior cervical disc fusion from C3 through C7 with accompanying disc spacers from C2-3 -C4-C6-C7. XR/XR cervical spine 1V [id number] Impression: Anterior cervical disc fusion C3-C7.
--- NOTE | 2021-08-21 10:24 | PM.OP ---
Operative Report Date of procedure: August 21, 2021 Pre-op diagnosis: Preop Diagnosis Cervical Spondylosis w/myelopathy Post-op diagnosis: same Procedure done: 1. Anterior diskectomy C3/4 2. Anterior diskectomy C4/5 3. Anterior diskectomy C5/6 2. Anterior diskectomy C6/7 4. Insertion of cage C3/4 5. Insertion of cage C4/5 3. Insertion of cage C5/6 4. Insertion of Cage C6/7 5. Instrumentation with anterior plate from C3-C7 6. Use of allograft Surgeon: Alex Rosado Asset Management Analyst: Larry Mckinley Asset Management Analyst: The surgical technology instructor, Larry Mckinley, PAC was needed for his expertise under the microscope. He was important and necessary throughout the procedure to complete in a safe and timely manner. He assisted with patient positioning prepping and draping tissue retraction suctioning of the operative field protection of the dural sac and tissue closure Estimated blood loss (mL): 100 Procedure: 1. Anterior diskectomy C3/4 2. Anterior diskectomy C4/5 3. Anterior diskectomy C5/6 2. Anterior diskectomy C6/7 4. Insertion of cage C3/4 5. Insertion of cage C4/5 3. Insertion of cage C5/6 4. Insertion of Cage C6/7 5. Instrumentation with anterior plate from C3-C7 6. Use of allograft The patient was taken to the operating room, where he underwent general endotracheal anesthesia without complications. He was then positioned supine on the operating table, and all areas of impingement were well padded. The arms were carefully padded and tucked at his sides. A roll was placed between the shoulder blades.. An x-ray was done to determine the appropriate level for the skin incision. The entire neck was then sterilely prepped and draped in the usual fashion. Neuromonitoring was attached prior to prepping. A transverse skin incision was made and carried down to the platysma muscle. This was then split in line with its fibers. Blunt dissection was carried down medial to the carotid sheath and lateral to the trachea and esophagus until the anterior cervical spine was visualized. A needle was placed into a disc and an x-ray was done to determine its location. The longus colli muscles were then elevated bilaterally with the electrocautery unit. Self-retaining retractors were placed deep to the longus colli muscle. Attention was brought to the C3/4 level that was confirmed on x-ray. A caspar pin was placed into the C3 vertebrae and the C4 vertebrae. The disk space was then distracted. The microscope was then brought in. A radical anterior discectomies were performed at C3/4. This included complete removal of the anterior annulus, nucleus, and posterior annulus. The posterior longitudinal ligament was removed as were the posterior osteophytes. Foraminotomies were then accomplished bilaterally. This was done using a high speed viridiana, kerrison rongeurs and curretes Once all of this was accomplished, the curved currette was used to check for any residual compression. The central canal was wide open as were the foramen. A high-speed bur was used to remove the cartilaginous endplates above and below the interspace. Bleeding cancellous bone was exposed. The disc space were measured and appropriate size cage were placed sterilely onto the field. Allograft graft was packed into the cages. The cage was then placed and there was good juxtaposition against the bleeding decorticated surfaces and good distraction of each interspace. Attention was brought to the next interspace. The [place] pins were removed. Bone wax was used to prevent any bleeding from occurring at the pin sites. Attention was brought to the C4/5 level that was confirmed on x-ray. A caspar pin was placed into the C4 vertebrae and the C5 vertebrae. The disk space was then distracted. The microscope was then brought in. A radical anterior discectomies were performed at C4/5. This included complete removal of the anterior annulus, nucleus, and posterior annulus. The posterior longitudinal ligament was removed as were the posterior osteophytes. Foraminotomies were then accomplished bilaterally. This was done using a high speed viridiana, kerrison rongeurs and curretes Once all of this was accomplished, the curved currette was used to check for any residual compression. The central canal was wide open as were the foramen. A high-speed bur was used to remove the cartilaginous endplates above and below the interspace. Bleeding cancellous bone was exposed. The disc space were measured and appropriate size cage were placed sterilely onto the field. Allograft graft was packed into the cages. The cage was then placed and there was good juxtaposition against the bleeding decorticated surfaces and good distraction of each interspace. Attention was brought to the next interspace. The [place] pins were removed. Bone wax was used to prevent any bleeding from occurring at the pin sites. Attention was brought to the C5/6 level that was confirmed on x-ray. A caspar pin was placed into the C5 vertebrae and the C6 vertebrae. The disk space was then distracted. The microscope was then brought in. A radical anterior discectomies were performed at C5/6. This included complete removal of the anterior annulus, nucleus, and posterior annulus. The posterior longitudinal ligament was removed as were the posterior osteophytes. Foraminotomies were then accomplished bilaterally. This was done using a high speed viridiana, kerrison rongeurs and curretes Once all of this was accomplished, the curved currette was used to check for any residual compression. The central canal was wide open as were the foramen. A high-speed bur was used to remove the cartilaginous endplates above and below the interspace. Bleeding cancellous bone was exposed. The disc space were measured and appropriate size cage were placed sterilely onto the field. Allograft graft was packed into the cages. The cage was then placed and there was good juxtaposition against the bleeding decorticated surfaces and good distraction of each interspace. Attention was brought to the next interspace. The [place] pins were removed. Bone wax was used to prevent any bleeding from occurring at the pin sites. Attention was brought to the C6/7 level that was confirmed on x-ray. A caspar pin was placed into the C6 vertebrae and the C7 vertebrae. The disk space was then distracted. The microscope was then brought in. A radical anterior discectomies were performed at C6/7. This included complete removal of the anterior annulus, nucleus, and posterior annulus. The posterior longitudinal ligament was removed as were the posterior osteophytes. Foraminotomies were then accomplished bilaterally. This was done using a high speed viridiana, kerrison rongeurs and curretes Once all of this was accomplished, the curved currette was used to check for any residual compression. The central canal was wide open as were the foramen. A high-speed bur was used to remove the cartilaginous endplates above and below the interspace. Bleeding cancellous bone was exposed. The disc space were measured and appropriate size cage were placed sterilely onto the field. Allograft graft was packed into the cages. The cage was then placed and there was good juxtaposition against the bleeding decorticated surfaces and good distraction of each interspace. Attention was brought to the next interspace. The [place] pins were removed. Bone wax was used to prevent any bleeding from occurring at the pin sites. The appropriate size anterior cervical locking plate was chosen and bent into gentle lordosis. Two screws were then placed into each of the vertebral bodies at C3, C4, C5, C6, and C7. There was excellent purchase. A final x-ray was done confirming good position of the hardware and Cages. The locking screws were then applied, also with excellent purchase. Following a final copious irrigation, there was good hemostasis and no dural leaks. The carotid pulse was strong. The wounds were then closed in layers using 2-0 Vicryl suture for the platysma muscle, 2-0 Vicryl suture for the subcutaneous tissue, and 4-0 monocryl suture in a subcuticular skin closure. Glue was placed followed by application of a sterile dressing. The drain was hooked to bulb suction. A soft collar was applied. The patient was then carefully returned to the supine position on his hospital bed where he was reversed and extubated and taken to the recovery room having tolerated the procedure well.
[2021-08-21] MEDS: morphine 4 mg/mL SDV 1 mL 2 MG IVP (13:46)
--- NOTE | 2021-08-21 14:19 | ANE.PACU2 ---
Inpatient post-anesthesia follow up: Airway intact: Yes Vital signs: Temperature 97.8 F Pulse Rate 100 Respiratory Rate 18 Blood Pressure 130/86 Pulse Oximetry 94 Oxygen Delivery Me thod Room Air Oxygen Flow Rate 6 Fraction of Inspir ed Oxygen Hydration adequate: Yes Nausea and vomiting: No Pain level: 3 Mental status: Baseline
[2021-08-21] MEDS: lactated ringers 1,000 ML 90 ML IV (15:18)
[2021-08-21] MEDS: oxyCODONE-APAP 10-325 mg Tablet 1 TAB PO ×2 (16:45→20:07)
[2021-08-21] MEDS: cyclobenzaprine 10 mg Tablet 5 MG PO (16:45)
[2021-08-21] MEDS: docusate sodium 100 mg Capsule PO (16:46)
[2021-08-21] MEDS: ketorolac 30 mg/mL INJ IVP (20:05)
[2021-08-21] MEDS: hyDROXYzine 25 mg Capsule PO (20:08)
[2021-08-22] MEDS: lactated ringers 1,000 ML 90 ML IV (01:48)
[2021-08-22 03:01] VITALS: BP 137/84; PULSE 104; RESP 18; TEMP 36.7; O2SAT 93
[2021-08-22 04:00] VITALS: BP 144/87; PULSE 101; RESP 18; TEMP 36.9; O2SAT 93
[2021-08-22] MEDS: buPROPion XL (24 HR) 150 mg Tablet PO (05:15)
[2021-08-22] MEDS: ketorolac 30 mg/mL INJ IVP (05:15)
[2021-08-22 05:16] VITALS: RESP 18
[2021-08-22] MEDS: oxyCODONE-APAP 10-325 mg Tablet 1 TAB PO ×2 (05:16→11:15)
[2021-08-22] MEDS: clindamycin 900 MG/50 ML PREMIX 100 MG IV (06:05)
--- NOTE | 2021-08-22 07:38 | P.PN_ITS ---
Subjective Subjective: POD 1 Patient resting comfortably with family present. Reports arm pains have improved significantly. Mild neck pain with mild swallowing difficulties. Denies any voice changes. Denies any chest pain, shortness of breath or headaches. Vitals/I&O/Wt Last Vital Signs Temp 98.4 F 08/22/21 04:00 Pulse 101 H 08/22/21 04:00 Resp 18 08/22/21 05:16 BP 144/87 08/22/21 04:00 Pulse Ox 93 08/22/21 04:00 08/21/21 08/22/21 08/22/21 22:59 06:59 14:59 Intake Total 50 / 1900 1045 / 2945 Output Total 1845 / 2095 630 / 2725 Balance -1795 / -195 415 / 220 Physical Exam Narrative: Patient is alert and oriented x3 with a good general appearance normal mood and affect. Mildly tender with palpation about the incisional site. Incision appears to be clean and dry with Hemovac drain intact. No signs of infection. Good motor strength throughout both upper extremities. Appears to fire in all motor groups with 5/5 strength. Hands are warm good cap refill in all digits. Normal sensation to light touch in all dermatomal areas. Urinary Catheter Management: Shearer: Cath Placed During This Visit: yes Reason for Continuing Indwelling Catheter: Accurate Measurement of Urinary Output in Critically Ill Patients Urinary Catheter Date of Insertion: 08/21/21 Urinary Catheter Time of Insertion: 07:15 Data : 08/15/21 11:40 A&P Assessment and plan (1) Status post cervical spinal fusion: We will discontinue the Shearer catheter and the Hemovac drain. Have him mobilize in the halls with physical therapy. Continue incentive spirometry for pulmonary toilet. Discharge home later today. Encouraged him to pursue smoking cessation. We will see him back in the office in 1 week's time for wound check. Status: Acute Attestations Medical Necessity Statement*: Discharge home today Coding Level of Care Code Acute Civil Engineering Design Draftsperson for Dale White Diagnoses Status post cervical spinal fusion Z98.1
--- NOTE | 2021-08-22 08:07 | PM.DCS ---
Discharge Providers Date of Admission: 08/21/21 14:30 Date of Discharge: August 22, 2021 Attending Provider at Admission: Alex Rosado DO Attending Provider at Discharge: Alex Rosado DO Primary Care Provider: Rosendo Alaniz DO Diagnoses at Discharge Discharge Diagnosis (1) Status post cervical spinal fusion: Status: Acute Reason for Visit Reason for Visit: pre reg and rpe op Hospital Course Hospital Course uneventful Physical Exam Urinary Catheter Management: Shearer: Cath Placed During This Visit: yes Reason for Continuing Indwelling Catheter: Accurate Measurement of Urinary Output in Critically Ill Patients Urinary Catheter Date of Insertion: 08/21/21 Urinary Catheter Time of Insertion: 07:15 Discharge Data Studies Completed and Pending Completed Studies During Hospitalization Category Date Time Status XR cervical spine 1V [id number] Routine Exams 08/21/21 09:52 Completed Pending at discharge Category Date Time Status C-arm Fluoroscopy [id number] Routine Exams 08/21/21 06:08 Taken Radiology Impressions Cervical Spine X-Ray 08/21/21 09:52 Impression: Anterior cervical disc fusion C3-C7. Laboratory Results Sodium 140 mmol/L (136-145) 08/15/21 11:40 Potassium 4.0 mmol/L (3.5-5.1) 08/15/21 11:40 Chloride 103 mmol/L (98-107) 08/15/21 11:40 Carbon Dioxide 26 mmol/L (22-29) 08/15/21 11:40 Anion Gap 15.0 (5-19) 08/15/21 11:40 BUN 12 mg/dL (8-23) 08/15/21 11:40 Creatinine 0.8 mg/dL (0.7-1.2) 08/15/21 11:40 GFR Calculation 98.6 mL/min (90-130) 08/15/21 11:40 Glucose 125 mg/dL (65-115) H 08/15/21 11:40 Calculated Osmolality 291 mOsm/kg (285-295) 08/15/21 11:40 Calcium 10.1 mg/dL (8.5-10.5) 08/15/21 11:40 Vitals Last Vital Signs Temp 98.4 F 08/22/21 04:00 Pulse 101 H 08/22/21 04:00 Resp 18 08/22/21 05:16 BP 144/87 08/22/21 04:00 Pulse Ox 93 08/22/21 04:00 Discharge Plan Discharge Patient Disposition: Home Condition: Stable Prescriptions: New oxycodone-acetaminophen 10-325 mg tablet 1 - 2 tab PO Q4H PRN (Reason: pain) 7 Days Qty: 40 0RF Continued aspirin [Aspir-81] 81 mg tablet,delayed release (DR/EC) 81 mg PO DAILY 0RF loratadine 10 mg tablet 10 mg PO DAILY 0RF lisinopril 5 mg tablet 5 mg PO DAILY 0RF omeprazole 20 mg capsule,delayed release(DR/EC) 20 mg PO DAILY 0RF multivitamin Tablet 1 tab PO DAILY 0RF super beta pros 1 cap caudal block DAILY 0RF cyclobenzaprine 5 mg tablet 5 mg PO BID PRN (Reason: Pain) 0RF memory factor 1 tab PO BID 0RF tamsulosin 0.4 mg capsule 0.8 mg PO DAILY Qty: 180 3RF hydroxyzine HCl 25 mg tablet 25 mg PO .AT NIGHT 0RF fluoxetine [Prozac] 20 mg capsule 20 mg PO DAILY 0RF oxycodone-acetaminophen 10-325 mg tablet 1 tab PO Q6H PRN (Reason: Pain) 0RF (DME) Bone Growth Stimulator E0748 See Rx Instructions .Route .MEDSUPPLY Qty: 1 0RF Rx Instructions: As directed magnesium 250 mg Tablet 250 mg PO DAILY 0RF bupropion HCl [Wellbutrin XL] 150 mg Tablet Extended Release 24 Hr 150 mg PO QAM 0RF Rx Instructions: PT STATES HE TAKES THIS BID. Held naproxen 500 mg tablet 500 mg PO BID 0RF Hold Instructions: Resume on 09/12/21. Discharge Orders: Discharge Order (Routine); Ordered 08/22/21 Ordered By: Larry Mckinley Referrals: Alex Rosado DO [Physician] - 1 week Discharge Diet: Advance as tolerated Discharge Activity: Resume usual activity Patient Instructions: Opioid Safety Activity Restrictions/Additional Instructions: Thank you for choosing [facility] for your care! The following is a list of instructions, from your provider, to follow upon your discharge to ensure you have the optimal recovery from your recent injury or surgery. Anterior Cervical Discectomy and Fusion: What to Expect at Home Your Recovery Follow-up care is a crowder part of your treatment and safety. Be sure to make and go to all appointments, and call your doctor if you are having problems. If you do not already have a follow-up appointment made, call office in the next 1-3 days to make follow up appointment for 1 weeks at [phone]. It is also a good idea to know your test results and keep a list of the medicines you take. You can expect your neck to feel stiff or sore after surgery. This should improve in the weeks after surgery. But it may take 4 to 6 months for you to get better completely. You may have trouble sitting or standing in one position for very long and may need pain medicine in the weeks after your surgery. It may take 4 to 6 weeks to get back to your usual activities, but it may depend on what kind of surgery you had. Your throat will feel sore and it may be difficult to swallow for the first 3 days after your surgery. As long as you can get liquids down without difficulty, this should slowly improve, otherwise call our office or seek medical attention if it becomes increasingly difficult to get anything down including liquids. Avoid hot liquids for first 3-5 days. Soothing foods/liquids such as jello, pudding, and luke warm soups are recommended until swallowing improves. Staying elevated will also help, it's advised you keep propped up at while sleeping to help reduce the swelling. You may use an ice pack directly on your incision or around it on the front of your neck, using a cloth to protect your skin; and a heating pad to the back of your neck as needed. Do not use over the counter anti-inflammatory medications (Ibuprofen, Motrin, Aleve, Advil, etc) Taking these meds after having a fusion can delay fusion rates, we recommend you avoid them for the first 3 months after your surgery[address] Dr. Rosado may advise you to work with a physical therapist to strengthen the muscles around your neck and back - this will be discussed at your follow - up appointments. The pain or numbness you were having in your arms before surgery should get better or go away completely. This care sheet gives you a general idea about how long it will take for you to recover. But each person recovers at a different pace. Follow the steps below to get better as quickly as possible. How can you care for yourself at home? Activity ? Rest when you feel tired. Getting enough sleep will help you recover. ? Try to walk each day. Start by walking a little more than you did the day before. Bit by bit, increase the amount you walk. Walking boosts blood flow and helps prevent pneumonia and constipation. Walking may also decrease your muscle soreness after surgery. ? No lifting anything that is more that 5 pounds. This may include heavy grocery bags and milk containers, a heavy briefcase or backpack, cat litter or dog food bags, a child, or a vacuum yarn cleaner. ? Avoid strenuous activities, such as bicycle riding, jogging, weightlifting, or aerobic exercise, until your doctor says it is okay. ? Do not drive until your follow-up visit after your surgery, or until your doctor says it isokay. ? Avoid taking long car trips for 2 to 4 weeks after surgery. Your neck may become tired and painful from sitting too long in one position. ? You will probably need to take 4 to 6 weeks off from work. It depends on the type of work you do and how you feel. ? You may have sex as soon as you feel able, but avoid positions that put stress on your neck or cause pain. Diet ? You can eat your normal diet. If your stomach is upset, try bland, low-fat foods like plain rice, broiled chicken, toast, and yogurt ? Drink plenty of fluids. If you have kidney, heart, or liver disease and have to limit fluids, talk with your doctor before you increase the amount of fluids you drink. ? You may notice that your bowel movements are not regular right after your surgery. This is common. Try to avoid constipation and straining with bowel movements. You may want to take a fiber supplement every day. If you have not had a bowel movement after a couple of days, ask your doctor about taking a mild laxative. Medicines ? Take pain medicines exactly as directed. 1. If Dr. Rosado gave you a prescription medicine for pain, take lt as prescribed. 2. Do not take two or more pain medicines at the same time unless the doctor told you to. Many pain medicines have acetaminophen, which is Tylenol. Too much acetaminophen {Tylenol) can be harmful. 3. If you think your pain pill is making you sick to your stomach: 4. Take your pills after meals (unless your doctor has told you not to). 5. Ask your Dr. for a different pain pill. Incisioncare ? Remove your dressing 48 hours after your surgery. Ok to shower and get the incision wet. Do not overtly wash your incision. When done, pad dry, leave open to air thereafter. Avoid creams and ointments directly on your incision. ? Your sutures in the incision will dissolve and fall out on their own. ? Keep the area clean and dry. You may cover it with a gauze bandage if it weeps or rubs against clothing; if you choose to do this, change the dressing everyday. Other instructions ? Use a heating pad, hot water bottle, or gentle massage on your back to reduce stiffness. Avoid putting heat on your incision When should you call for help? ? Call 911 anytime you think you may need emergency care. For example, call if: ? You pass out (lose consciousness). ? You have sudden chest pain and shortness of breath, or you cough upblood. ? You cannot swallow. ? You have severe pain in your neck or back. ? Call your Dr. or seek immediate medical care if: ? You have pain that does not get better after you take pain pills. ? You have loose stitches, or your incision comes open. ? You have blood or fluid draining from the incision. ? You have signs of infection, such as: 1. Increased pain, swelling, warmth, or redness. 2. Red streaks leading from the site. 3. Pus draining from the site. 4. Swollen lymph nodes in your neck or armpits. 5. A fever. ? You have severe pain in your arms. ? You have new or increased weakness or numbness in your arms. ? Watch closely for any changes in your health, and be sure to contact your doctor if: ? You do not have a bowel movement after taking a laxative. Discharge Attestations Time Spent in Discharge Care*: less than 30 min Quality Metrics Clinical Quality Measures [ No reported AMI, CVA or VTE this stay] Coding Level of Care Code Acute g DC note Diagnoses Status post cervical spinal fusion Z98.1
[2021-08-22] MEDS: docusate sodium 100 mg Capsule PO (09:14)
[2021-08-22] MEDS: loratadine 10 mg Tablet PO (09:14)
[2021-08-22] MEDS: aspirin 81 mg EC Tablet PO (09:14)
[2021-08-22] MEDS: fluoxetine 20 mg Capsule PO (09:14)
[2021-08-22] MEDS: multivitamin therapeutic Tablet 1 TAB PO (09:14)
[2021-08-22] MEDS: pantoprazole DR 40 mg Tablet PO (09:14)
[2021-08-22] MEDS: lisinopril 5 mg Tablet PO (09:14)
--- NOTE | 2021-08-22 09:57 | PC.CHAP ---
Pastoral Care Encounter/Spiritual Assessment Type of Contact [] Declined sack sewer machine visit [] Patient/Family/Request visit [] Outpatient visit [] Follow-up visit [] Physician referral [] Code/Alert [] Routine visit [] Staff referral [] Actively dying [] Patient sleeping [] Family support [] [] Out of room [] Palliative care [] [] Receiving care in room [] Pre-surgical visit [] Trauma [] Long length of stay [] ICU visit [x] Other: Isolation Relational/Emotional Strength [] Patient feels connected with others/family/visitors/staff [] Distress [] Loneliness/isolation [] Abandonment Spirituality of Patient [] Person of Makenna [] Attends Roman Catholic of their Makenna [] Believes in Prayer [] Reads Bible or Congregation materials [] There are Spiritual issues to be addressed Breaker Hand Interventions [] Prayer [] Active listening [] Non-anxious presence [] Spiritual/emotional support [] Crisis/trauma care [] Spiritual counseling [] Bereavement support [] Provided bereavement packet [] Provided Bible/devotional materials [] Provided toy/stuffed animal, coloring book to patient or family member [] Provided Communion [] Anointing/[place] [] Salvation [] Completed spiritual assessment [] Other: Impact on Illness or Injury [] Angry [] Fearful [] Anxious [] Often cries [] Exhaustion [] Unable to work [] Unable to attend christianity [] Unable to walk/stand [] Unable to read [] Unable to drive [] Unable to eat/drink [] Unable to sleep [] Unable to be with family [] Patient intubated [] Other: Summary Isolation Time spent with patient 5 mins
--- NOTE | 2021-08-22 10:38 | PC.NURSE ---
Hemovac discontinued per orders with no s/s of complications.
[2021-08-22 11:15] VITALS: RESP 20
== END 2021-08-22 12:10 | disposition home or self-care (01) | DRG 472 ==
LOC: MEDSURG 08-22 07:46
PROVIDERS: Anesthesiology; Admitting Provider Orthopaedic Surgery; PCP Emergency Medicine Emergency Medical Services; Visit Provider Orthopaedic Surgery
PROC: 0RB30ZZ Excision of Cervical Vertebral Disc, Open Approach (ICD-10-PCS; CPT 22551; principal; 2021-08-21 07:00)
DX: M47.12 Other spondylosis with myelopathy, cervical region (principal); N13.8 Other obstructive and reflux uropathy; Z87.442 Personal history of urinary calculi; N40.1 Benign prostatic hyperplasia with lower urinary tract symptoms; F17.200 Nicotine dependence, unspecified, uncomplicated; Z79.82 Long term (current) use of aspirin; Z79.891 Long term (current) use of opiate analgesic
CPT/HCPCS: 51702; 72020; 76000; 80048; 97760; C1713; C9359; J0330; J1100; J1170; J1885; J2270; J2370; J2405; J2704; J3010; J3490; J7030; L0174

== ENCOUNTER 2021-08-22 21:54 | Emergency (ER) | payer OTHER, SELFPAY ==
[2021-08-22 22:10] VITALS: BP 148/97; PULSE 129; RESP 18; TEMP 37.8; O2SAT 95
--- NOTE | 2021-08-22 22:46 | ED_ITS ---
HPI - General Adult General: Chief complaint: General Medical Stated complaint: post neck surgery/ sob/ hard to swallow Time Seen by Provider: 08/22/21 22:46 History of Present Illness: Mr Dunlap is a 60-year-old gentleman postop day 1 from anterior discectomy and cage placement of cervical spine at multiple levels presenting to the emergency department due to tolerating p.o. intake and swallowing. He was discharged earlier this afternoon and had been doing okay however symptoms have since worsened. He reports inability to tolerate his medication and difficulty swallowing anything other than minimal amounts of liquid. He reports a sensation of constantly needing to clear his throat and of liquid sitting in the back of his throat. Overall intensity symptoms is moderate. Course has persisted. No other specific changes in health, exacerbating, or alleviating factors identified. Onset (ago): hour(s) Severity: moderate Quality: other Exacerbating factors: eating Review of Systems General: Reports: 10 or more systems reviewed and unremarkable except in HPI and below PFSH ED PFSH: Medical History Bilateral renal stones BPH loc w urin obs/LUTS S/P extracorporeal shock wave therapy Ureteral calculus, right Surgical History H/O knee surgery History of shoulder surgery Hx of cataract surgery bilateral Family History Mother , at age 69 Renal failure Social History Smoking and tobacco status: current every day smoker Alcohol intake: never Marital status: Current occupational status: retired History of recent travel: No Physical Exam Const: COMMON NORMALS: alert GENERAL APPEARANCE: cooperative and well developed HENMT: COMMON NORMALS: normocephalic and atraumatic HEAD & SCALP: normocephalic and atraumatic THROAT: posterior oropharynx normal Eye: COMMON NORMALS: conjunctivae normal CONJUNCTIVA: Yes conjunctivae normal SCLERA: sclerae normal Neck/C-Spine: GENERAL: Yes trachea midline OTHER: Surgical dressing and [place] J collar Resp: COMMON NORMALS: normal respiratory effort and clear to auscultation bilaterally EFFORT & INSPECTION: Yes able to speak in complete sentences AUSCULTATION: clear to auscultation bilaterally Cardio: COMMON NORMALS: regular rhythm RATE: tachycardic RHYTHM: regular rhythm GI: COMMON NORMALS: Soft to palpation PALPATION: Yes Soft to palpation and No Tenderness to palpation present (GI) PERCUSSION: normal to percussion Extremity: GENERAL: Yes normal exam except as noted and No edema Neuro: COMMON NORMALS: moves all extremities SENSORIUM/ORIENTATION: Yes alert and No Orientation impaired Psych: COMMON NORMALS: mental status grossly normal and Normal thought process present THOUGHT PROCESS: Normal thought process present Course ED course: - Patient was seen and evaluated by me at bedside - Patient placed on cardiac monitors, IV access obtained - Initial evaluation notable for exam as above. - Labs and xrays personally interpreted by me -Fluids and analgesia given - Labs notable for leukocytosis which may be reactive, mild anemia. Metabolic panel without significant derangement. - Imaging notable for 3.8 x 2.2 x 0.8 cm prevertebral air-fluid collection which is indeterminate in the postoperative context. - After some delay I was able to reach Dr. Rosado who unfortunately was not on- call and therefore harder to reach, I discussed CT results and patient condition with him. Findings are within expected postoperative course and patient can be discharged. - Upon serial reexamination after treatment the patient was mildly improved. He can tolerate small sips of water. - Based on patient history, evaluation, and testing as interpreted the most likely cause of the patient's condition is postoperative difficulty swallowing - The results of ED evaluation were discussed with the patient including prescriptions and/or symptomatic cares (if applicable) including appropriate and responsible use, followup plan, and return precautions. The patient verbalized understanding and felt safe for discharge. - Patient discharged in satisfactory condition. Note: Click bubbles or prepopulated gannon in note writing are used for assistance with data collection and billing and are inherently more limited than narrative and other text portions of this note. Please use narrative for additional clin ical history and defer to narrative/free test for any case of contradictory information. If information appears in only free text or click bubble it should be considered present or absent as reported. Please contact note fiction and nonfiction prose writer for clarifications of clinical information or contradictory information. MDM is a brief summary, contradictory or erroneous seeming information should be clarified and full note should be reviewed. Vital Signs: Vital signs: Vital Signs Temperature 100.0 F H 08/22/21 22:10 Pulse Rate 112 H 08/23/21 05:07 Respiratory Rate 20 H 08/23/21 05:07 Blood Pressure 165/102 08/23/21 05:07 Pulse Oximetry 94 08/23/21 05:07 [facility] - General Adult Medical Decision Making 60-year-old gentleman postop day [address] Rosado presenting with difficulty swallowing. Found to have postoperative fluid collection which is likely within expected postoperative limits per Dr. Rosado. Patient given analgesia and symptom treatment as well as steroids. We will trial home treatment with strict return precautions. Medical Records I reviewed the patient's medical records. Lab Data I reviewed the patient's lab results. : 08/22/21 23:40 08/22/21 23:[address] 08/22/21 23:01 IMPRESSION: 1. Changes of centrilobular emphysema demonstrated. 2. Mild atelectasis at the lung bases. No consolidative pulmonary infiltrate noted. COMMENTS: Consistent with the [employer]'s Incidental Findings Committee white paper (J Am Fabian Radiol 2018): Any incidental renal lesion less than 1 cm or classified as too small to characterize, or any incidental cystic renal lesion characterized as simple-appearing, is likely benign. No follow-up imaging is recommended for these lesions per consensus recommendations based on imaging criteria. Neck CT 08/22/21 23:01 IMPRESSION: 1. Interval anterior metallic fixation of C3, C4, C5, C6, and C7 with metallic artifact. 2. Radiopaque disc spacers at C3-C4, C4-C5, C5-C6 and C6-C7. 3. 3.8 x 2.2 x 0.8 cm prevertebral/retropharyngeal air-fluid level consistent with postoperative fluid with or without infection. ADDENDUM: 08/23/21 0054 THIS REPORT CONTAINS FINDINGS THAT MAY BE CRITICAL TO PATIENT CARE. The findings were verbally communicated via telephone conference with Javier Norton at 12:53 AM CDT on 08/23/2021. The findings were acknowledged and understood. Laboratory Results WBC 15.8 10^3/uL (4.0-10.0) H 08/22/21 23:40 RBC 3.53 10^6/uL (4.1-5.3) L 08/22/21 23:40 Hgb 10.8 g/dL (11.7-16.6) L 08/22/21 23:40 Hct 32.3 % (42.0-52.0) L 08/22/21 23:40 MCV 91.5 fl (80-94) 08/22/21 23:40 MCH 30.6 pg (28.0-34.0) 08/22/21 23:40 MCHC 33.4 g/dL (30.0-36.0) 08/22/21 23:40 RDW 14.2 % (12.1-15.1) 08/22/21 23:40 Plt Count 238 10^3/cmm (130-400) 08/22/21 23:40 MPV 9.8 fL (7.4-10.4) 08/22/21 23:40 Neut % (Auto) 74.4 % 08/22/21 23:40 Lymph % (Auto) 14.8 % 08/22/21 23:40 [place]arrard % (Auto) 10.1 % 08/22/21 23:40 Eos % (Auto) 0.1 % 08/22/21 23:40 Baso % (Auto) 0.3 % 08/22/21 23:40 Neut # (Auto) 11.74 10^3/uL (1.8-7.7) H 08/22/21 23:40 Lymph # (Auto) 2.3 10^3/uL (0.8-4.8) 08/22/21 23:40 [place]ard # (Auto) 1.6 10^3/uL (0.2-0.9) H 08/22/21 23:40 Eos # (Auto) 0.0 10^3/uL (0.0-0.8) 08/22/21 23:40 Baso # (Auto) 0.1 10^3/uL (0.0-0.1) 08/22/21 23:40 Nucleated RBC % (auto) 0 % 08/22/21 23:40 Nucleated RBCs # 0.0 /100WBC 08/22/21 23:40 Sodium 135 mmol/L (136-145) L 08/22/21 23:40 Potassium 4.3 mmol/L (3.5-5.1) 08/22/21 23:40 Chloride 100 mmol/L (98-107) 08/22/21 23:40 Carbon Dioxide 25 mmol/L (22-29) 08/22/21 23:40 Anion Gap 14.3 (5-19) 08/22/21 23:40 BUN 16 mg/dL (8-23) 08/22/21 23:40 Creatinine 0.9 mg/dL (0.7-1.2) 08/22/21 23:40 GFR Calculation 86.1 mL/min (90-130) L 08/22/21 23:40 Glucose 104 mg/dL (65-115) 08/22/21 23:40 Calculated Osmolality 281 mOsm/kg (285-295) L 08/22/21 23:40 Lactic Acid 1.1 mmol/L (0.5-2.2) 08/22/21 23:40 Calcium 8.7 mg/dL (8.5-10.5) 08/22/21 23:40 Total Bilirubin 0.4 mg/dL (0.15-1.2) 08/22/21 23:40 AST 18 U/L (0-40) 08/22/21 23:40 ALT 12 U/L (0-41) 08/22/21 23:40 Alkaline Phosphatase 82 IU/L (40-130) 08/22/21 23:40 Total Protein 6.4 g/dL (6.6-8.7) L 08/22/21 23:40 Albumin 3.6 g/dL (3.5-5.2) 08/22/21 23:40 Globulin 2.8 g/dL (1.3-4.6) 08/22/21 23:40 Discharge Plan Discharge Patient Disposition: Home Clinical Impression: Post-operative pain, Difficulty swallowing, Tachycardia Condition: Stable Prescriptions: No Action aspirin [Aspir-81] 81 mg tablet,delayed release (DR/EC) 81 mg PO DAILY 0RF loratadine 10 mg tablet 10 mg PO DAILY 0RF lisinopril 5 mg tablet 5 mg PO DAILY 0RF omeprazole 20 mg capsule,delayed release(DR/EC) 20 mg PO DAILY 0RF multivitamin Tablet 1 tab PO DAILY 0RF cyclobenzaprine 5 mg tablet 5 mg PO BID PRN (Reason: Pain) 0RF memory factor 1 tab PO BID 0RF hydroxyzine HCl 25 mg tablet 25 mg PO BEDTIME 0RF fluoxetine [Prozac] 20 mg capsule 20 mg PO DAILY 0RF naproxen 500 mg tablet 500 mg PO BID PRN (Reason: Pain) 0RF Hold Instructions: Resume on 09/12/21. (DME) Bone Growth Stimulator E0748 See Rx Instructions .Route .MEDSUPPLY Qty: 1 0RF Rx Instructions: As directed magnesium 250 mg Tablet 250 mg PO DAILY 0RF bupropion HCl [Wellbutrin XL] 150 mg Tablet Extended Release 24 Hr 300 mg PO QAM 0RF tamsulosin 0.4 mg Capsule 0.4 mg PO DAILY 0RF Prostate Health 160-100-100 mg-unit-mcg Tablet 1 tab PO DAILY 0RF Discharge Orders: Discharge ED (Routine); Ordered 08/23/21 Ordered By: Javier Norton Referrals: Rosendo Alaniz DO [Primary Care Provider] - Discharge Diet: Usual diet Discharge Activity: Limit activity as instructed Patient Instructions: Opioid Safety Activity Restrictions/Additional Instructions: Thank you for visiting the emergency department. You were seen and evaluated for postoperative pain and difficulty swallowing. The exact cause of your symptoms is unclear. After discussion with your surgeon we will plan to discharge you and have close follow-up. I will start you on a steroid taper. Additionally I will prescribe liquid oxycodone for if you have difficulty with pills. Do not take this at the same time as your previously prescribed opioid medication. Please return to the emergency department for shortness of breath, any changes in voice, noisy breathing at rest such as stridor, inability to tolerate oral intake, inability to take pain medication or uncontrolled pain, or anything else that you are concerned about a feel needs emergency department evaluation. Coding Level of Care Code ED Lever Tender for Dale White Exam Comprehensive
--- NOTE | 2021-08-22 23:01 | CTR_ITS ---
PROCEDURE INFORMATION: Exam: CT Chest With Contrast; Diagnostic Exam date and time: 08/22/2021 11:24 PM Age: 60 years old Clinical indication: Shortness of breath; Prior surgery; Surgery date: Post-operative (0-2 days); Surgery type: Cervical fusion on 08/21/2021; Patient HX: C/O worsening SOB with tachycardia since anterior cervical fusion yesterday. ; Additional info: Sob/tachy post op TECHNIQUE: Imaging protocol: Diagnostic computed tomography of the chest with contrast. Radiation optimization: All CT scans at this facility use at least one of these dose optimization techniques: automated exposure control; mA and/or kV adjustment per patient size (includes targeted exams where dose is matched to clinical indication); or iterative reconstruction. Contrast material: OMNI 350; Contrast volume: 60 ml; Contrast route: INTRAVENOUS (IV); COMPARISON: CTA Chest-Pulmonary Emb [id number] 08/19/2016 7:00 AM RADIATION DOSE METRICS: Total DLP (mGy-cm): 891.44 FINDINGS: Lungs: Changes of centrilobular emphysema demonstrated. Mild atelectasis at the lung bases. No consolidative pulmonary infiltrate noted. No suspicious pulmonary nodules. No pulmonary mass. Pleural spaces: No pleural effusion or pneumothorax noted. Heart: No cardiomegaly demonstrated. No coronary arterial calcifications are noted. There is no significant pericardial effusion present. Lymph nodes: Shotty, nonspecific mediastinal adenopathy. Nodes up to 8 mm short axis are demonstrated. Vasculature: Unremarkable. No aortic aneurysm. Liver: Multiple low-density lesions are seen in the liver, too small to characterize. These are unchanged from 08/19/2016, and likely represent benign cysts. Kidneys and ureters: Simple appearing 1.2 cm left renal cyst. Bones/joints: Degenerative spine changes are noted. No acute osseous abnormality. Soft tissues: Unremarkable. CT/CT chest w con* [id number] IMPRESSION: 1. Changes of centrilobular emphysema demonstrated. 2. Mild atelectasis at the lung bases. No consolidative pulmonary infiltrate noted. COMMENTS: Consistent with the [employer]'s Incidental Findings Committee white paper (J Am Fabian Radiol 2018): Any incidental renal lesion less than 1 cm or classified as too small to characterize, or any incidental cystic renal lesion characterized as simple-appearing, is likely benign. No follow-up imaging is recommended for these lesions per consensus recommendations based on imaging criteria.
--- NOTE | 2021-08-22 23:01 | CTR_ITS ---
PROCEDURE INFORMATION: Exam: CT Neck With Contrast Exam date and time: 08/22/2021 11:28 PM Age: 60 years old Clinical indication: Dysphagia / difficulty swallowing; Prior surgery; Surgery date: Post-operative (0-2 days); Surgery type: Anterior cervical fusion on 08/21/2021. Patient HX: C/O dysphagia and having to constantly clear throat since anterior cervical fusion yesterday. ; Additional info: Post op worsening difficulty breathing and swallowing TECHNIQUE: Imaging protocol: Computed tomography of the neck with contrast. Radiation optimization: All CT scans at this facility use at least one of these dose optimization techniques: automated exposure control; mA and/or kV adjustment per patient size (includes targeted exams where dose is matched to clinical indication); or iterative reconstruction. Contrast material: OMNI 350; Contrast volume: 60 ml; Contrast route: INTRAVENOUS (IV); COMPARISON: CTA Neck [id number] 08/20/2016 3:08 PM RADIATION DOSE METRICS: Total DLP (mGy-cm): 491.97 FINDINGS: Paranasal sinuses: Moderate bilateral ethmoid sinus disease. Moderate left maxillary sinus disease. Pharynx: Unremarkable. No significant tonsillar enlargement. Larynx: Unremarkable. Epiglottis is normal. Prevertebral and retropharyngeal spaces: 3.8 x 2.2 x 0.8 cm prevertebral/retropharyngeal air-fluid level consistent with postoperative fluid with or without infection. Salivary glands: Normal. Glands are normal in size. Thyroid: Normal. No enlarged or calcified nodules. Lymph nodes: Unremarkable. No lymphadenopathy. Trachea: Visualized trachea is unremarkable. Lungs: Unremarkable as visualized. Bones/joints: Mild levoscoliosis. Interval anterior metallic fixation of C3, C4, C5, C6, and C7 with metallic artifact. Radiopaque disc spacers at C3-C4, C4-C5, C5-C6 and C6-C7. Soft tissues: Unremarkable. No significant soft tissue swelling. CT/CT neck w con* [id number] IMPRESSION: 1. Interval anterior metallic fixation of C3, C4, C5, C6, and C7 with metallic artifact. 2. Radiopaque disc spacers at C3-C4, C4-C5, C5-C6 and C6-C7. 3. 3.8 x 2.2 x 0.8 cm prevertebral/retropharyngeal air-fluid level consistent with postoperative fluid with or without infection.
[2021-08-22] MEDS: iohexol 350 mg/mL 100 mL Btl IV ×2 (23:31)
[2021-08-22 23:48] VITALS: RESP 26; O2SAT 95
[2021-08-22] MEDS: morphine 4 mg/mL SDV 1 mL IVP (23:48)
[2021-08-22 23:51] LABS: Basophils # 0.1 10^3/uL (0.0-0.1); Basophils % 0.3 %; Eosinophils % 0.1 %; Hematocrit 32.3 % (42.0-52.0); Hemoglobin 10.8 g/dL (11.7-16.6); Lymphocytes # 2.3 10^3/uL (0.8-4.8); Lymphocytes % 14.8 %; Mean Corpuscular HGB Conc 33.4 g/dL (30.0-36.0); Mean Corpuscular Hemoglobin 30.6 pg (28.0-34.0); Mean Corpuscular Volume 91.5 fl (80-94); Mean Platelet Volume 9.8 fL (7.4-10.4); Monocytes # 1.6 10^3/uL (0.2-0.9); Monocytes % 10.1 %; Neutrophils # 11.74 10^3/uL (1.8-7.7); Neutrophils % 74.4 %; Nucleated Red Blood Cells % 0 %; Platelet Count 238 10^3/cmm (130-400); Red Blood Count 3.53 10^6/uL (4.1-5.3); Red Cell Distribution Width 14.2 % (12.1-15.1); White Blood Count 15.8 10^3/uL (4.0-10.0)
[2021-08-23 00:04] LABS: Alanine Aminotransferase 12 U/L (0-41); Albumin Level 3.6 g/dL (3.5-5.2); Alkaline Phosphatase 82 IU/L (40-130); Anion Gap 14.3 (5-19); Aspartate Amino Transferase 18 U/L (0-40); Blood Urea Nitrogen 16 mg/dL (8-23); Calcium 8.7 mg/dL (8.5-10.5); Carbon Dioxide 25 mmol/L (22-29); Chloride 100 mmol/L (98-107); Globulin 2.8 g/dL (1.3-4.6); Glomerular Filtration Rate 86.1 mL/min (90-130); Glucose 104 mg/dL (65-115); Osmolality Calculated 281 mOsm/kg (285-295); Potassium 4.3 mmol/L (3.5-5.1); Sodium 135 mmol/L (136-145); Total Bilirubin 0.4 mg/dL (0.15-1.2); Total Protein 6.4 g/dL (6.6-8.7)
[2021-08-23 00:05] LABS: Lactic Sepsis W/Reflex 1.1 mmol/L (0.5-2.2)
[2021-08-23 00:15] VITALS: BP 161/102; PULSE 116; RESP 18; O2SAT 93
[2021-08-23] MEDS: sodium chloride 0.9% 1,000 ML 250 ML IV (02:13)
[2021-08-23 03:33] VITALS: RESP 18
[2021-08-23] MEDS: morphine 4 mg/mL SDV 1 mL IVP (03:33)
[2021-08-23] MEDS: ketorolac 30 mg/mL INJ 15 MG IVP (04:12)
[2021-08-23] MEDS: acetaminophen 650 mg/20.3 mL UDC PO (04:12)
[2021-08-23 05:07] VITALS: BP 165/102; PULSE 112; RESP 20; O2SAT 94
== END 2021-08-23 05:09 | disposition home or self-care (01) ==
PROVIDERS: Emergency Provider Emergency Medicine; PCP Emergency Medicine Emergency Medical Services
DX: G89.18 Other acute postprocedural pain (principal); R13.10 Dysphagia, unspecified; R00.0 Tachycardia, unspecified; Z98.1 Arthrodesis status
CPT/HCPCS: 70491; 71260; 80053; 83605; 85025; 87040; 96374; 96375; 96376; 99284; J1885; J2270; J2930; J7030; Q9967

== ENCOUNTER 2021-08-24 13:05 | Inpatient (IN) | payer OTHER, SELFPAY ==
[2021-08-24] VITALS (7 sets, daily range): BP systolic 150–180; BP diastolic 90–105; PULSE 73–107; RESP 16–22; TEMP 36.4–36.8; O2SAT 95–98
--- NOTE | 2021-08-24 14:15 | CTR_ITS ---
PROCEDURE INFORMATION: Exam: CT Neck With Contrast Exam date and time: 08/24/2021 2:59 PM Age: 60 years old Clinical indication: Other: Trouble swallowing; Prior surgery; Surgery date: Post-operative (0-2 days); Surgery type: Neck; Additional info: Worsening dysphagia; Recent surgery, recent cervical fusion; Post op fluid collection 2d ago on TECHNIQUE: Imaging protocol: Computed tomography of the neck with contrast. Radiation optimization: All CT scans at this facility use at least one of these dose optimization techniques: automated exposure control; mA and/or kV adjustment per patient size (includes targeted exams where dose is matched to clinical indication); or iterative reconstruction. Contrast material: OMNI 350; Contrast volume: 75 ml; Contrast route: INTRAVENOUS (IV); COMPARISON: CT neck w con* [id number] 08/22/2021 11:28 PM RADIATION DOSE METRICS: Total DLP (mGy-cm): 460.58 FINDINGS: Pharynx: Unremarkable. No significant tonsillar enlargement. Larynx: Unremarkable. Epiglottis is normal. Prevertebral and retropharyngeal spaces: There is a retropharyngeal fluid collection measuring 7 x 3.8 x 1.8 cm in the craniocaudal, transverse and AP dimensions (previously 3.8 x 2.2 x 0.8 cm). This contains an air-fluid level. There is peripheral enhancement. This collection is identified from the C3 through C6 levels and extends posterior to the right thyroid gland. Salivary glands: Normal. Glands are normal in size. Thyroid: Normal. No enlarged or calcified nodules. Lymph nodes: Unremarkable. No lymphadenopathy. Trachea: Visualized trachea is unremarkable. Lungs: Unremarkable as visualized. Bones/joints: There is postsurgical change from C3/4 through C6/7. There is an anterior fusion plate from C3 through C7. Soft tissues: Unremarkable. No significant soft tissue swelling. CT/CT neck w con* [id number] IMPRESSION: When compared with 08/22/2021, the retropharyngeal fluid collection has increased in size in the interval.
[2021-08-24 14:50] LABS: Basophils # 0.1 10^3/uL (0.0-0.1); Basophils % 0.4 %; Eosinophils % 0.3 %; Hematocrit 38.8 % (42.0-52.0); Hemoglobin 13.1 g/dL (11.7-16.6); Lymphocytes # 2.3 10^3/uL (0.8-4.8); Lymphocytes % 16.5 %; Mean Corpuscular HGB Conc 33.8 g/dL (30.0-36.0); Mean Corpuscular Hemoglobin 30.5 pg (28.0-34.0); Mean Corpuscular Volume 90.4 fl (80-94); Mean Platelet Volume 9.9 fL (7.4-10.4); Monocytes # 1.1 10^3/uL (0.2-0.9); Neutrophils # 10.54 10^3/uL (1.8-7.7); Neutrophils % 74.4 %; Nucleated Red Blood Cells % 0 %; Platelet Count 310 10^3/cmm (130-400); Red Blood Count 4.29 10^6/uL (4.1-5.3); Red Cell Distribution Width 13.5 % (12.1-15.1); White Blood Count 14.2 10^3/uL (4.0-10.0)
--- NOTE | 2021-08-24 14:53 | ED_ITS ---
Documented by User: [email or web address] Marrero 08/24/21 18:24 HPI - Neck Pain/Injury General: Chief Complaint: General Medical Stated Complaint: trouble swallowing Time Seen by Provider: 08/24/21 14:19 Source: patient and family Mode of arrival: ambulatory Limitations: no limitations History of Present Illness: Patient is a 60-year-old male who presents to the ED today with a complaint of dysphagia. Patient underwent anterior discectomy and cage placement of cervical spine at multiple levels by Dr. Rosado on 08/21. Patient was seen at our facility the following day with a complaint of dysphagia. He had a CT scan performed which showed a 3.8 x 2.2 x 0.8 cm [place]ena vertebral/retropharyngeal air-fluid level consistent with postoperative fluid with or without infection. Patient states he was discharged home. He returns to our facility with complaints of worsening symptoms. Patient today he is not able to swallow his own saliva. He has not been able to eat or drink over the past 48 hours. He states he is unable to hold down his liquid pain medications. No fevers. He has no complaints regarding the incision. MD complaint: neck pain Onset (ago): day(s) Severity scale (1-10): 10 Duration: constant Context: other (recent surgery) Associated symptoms: Reports dysphagia; Denies dizziness or headache(s) Treatments prior to arrival: none Review of Systems Const: Denies: fever(s), chills, body aches, fatigue or malaise Card: Denies: chest pain Resp: Denies: dyspnea GI: Reports: dysphagia; Denies: abdominal pain, vomiting or diarrhea Musc: Reports: neck pain; Denies: back pain, extremity pain or joint pain Skin/Breast: Denies: rash Neuro: Denies: headache(s), numbness in extremities, weakness in extremities, sensory changes or dizziness [facility] ED PFSH: Medical History Bilateral renal stones BPH loc w urin obs/LUTS S/P extracorporeal shock wave therapy Ureteral calculus, right Surgical History H/O knee surgery History of shoulder surgery Hx of cataract surgery bilateral Family History Mother , at age 69 Renal failure Social History Smoking and tobacco status: current every day smoker Alcohol intake: never Marital status: Current occupational status: retired History of recent travel: No Physical Exam Const: COMMON NORMALS: no acute distress, average body habitus, patient oriented x3, no limitations, healthy appearing, alert and well nourished GENERAL APPEARANCE: cooperative ORIENTATION/CONSCIOUSNESS: Yes awake, Yes oriented to person, Yes oriented to place and Yes oriented to time OTHER: appears in NAD; he is not drooling/spitting saliva HENMT: COMMON NORMALS: normocephalic and atraumatic HEAD & SCALP: normal to inspection, normocephalic and atraumatic FACE & SINUS: normal facial exam Neck/C-Spine: GENERAL: No anterior neck swelling and No submandibular swelling OTHER: yocha dehe J collar present; no ROM testing performed secondary to recent surgery; anterior midline incision appears clean Resp: COMMON NORMALS: normal respiratory effort and clear to auscultation bilaterally AUSCULTATION: clear to auscultation bilaterally Cardio: COMMON NORMALS: regular rhythm RATE: tachycardic RHYTHM: regular rhythm Extremity: COMMON NORMALS: normal to inspection GENERAL: Yes normal exam except as noted Neuro: WALTER COMA SCALE: document GCS findings [place] coma scale eye opening: Spontaneous Walter coma scale verbal response: Orientated Walter coma scale motor response: Obey commands Walter coma scale total score: 15 COMMON NORMALS: patient oriented x3, CN's II-XII intact bilaterally, moves all extremities, no focal motor deficits and no sensory deficits noted SENSORIUM/ORIENTATION: Yes alert, Yes oriented to person, Yes oriented to place and Yes oriented to time Course Consultations: Consultation #1: Dr. Rosado-agrees with plan for admission; will consult on patient Consultation #2: Dr. Hardwick-accepts patient with Dr. Rosado to consult Vital Signs: Vital signs: Vital Signs Temperature 98.2 F 08/24/21 16:37 Pulse Rate 95 08/24/21 16:37 Respiratory Rate 16 08/24/21 16:37 Blood Pressure 150/95 08/24/21 16:37 Pulse Oximetry 95 08/24/21 16:37 MDM - Neck Pain/Injury Lab Data : 08/24/21 14:39 08/24/21 14:[address] 08/24/21 14:15 IMPRESSION: When compared with 08/22/2021, the retropharyngeal fluid collection has increased in size in the interval. ADDENDUM: 08/24/21 1641 The retropharyngeal fluid collection measures 7 x 3.8 x 1.8 cm. By my measurements the collection on the previous exam from 08/22/2021 measured 6.2 x 2.3 x 1.2 cm. THIS REPORT CONTAINS FINDINGS THAT MAY BE CRITICAL TO PATIENT CARE. The findings were verbally communicated via telephone conference with Janis Cancino at 4:39 PM CDT on 08/24/2021. The findings were acknowledged and understood. Chest X-Ray 08/24/21 15:10 IMPRESSION: No acute findings. Laboratory Results WBC 14.2 10^3/uL (4.0-10.0) H 08/24/21 14:39 RBC 4.29 10^6/uL (4.1-5.3) 08/24/21 14:39 Hgb 13.1 g/dL (11.7-16.6) 08/24/21 14:39 Hct 38.8 % (42.0-52.0) L 08/24/21 14:39 MCV 90.4 fl (80-94) 08/24/21 14:39 MCH 30.5 pg (28.0-34.0) 08/24/21 14:39 MCHC 33.8 g/dL (30.0-36.0) 08/24/21 14:39 RDW 13.5 % (12.1-15.1) 08/24/21 14:39 Plt Count 310 10^3/cmm (130-400) 08/24/21 14:39 MPV 9.9 fL (7.4-10.4) 08/24/21 14:39 Neut % (Auto) 74.4 % 08/24/21 14:39 Lymph % (Auto) 16.5 % 08/24/21 14:39 [place] % (Auto) 8.0 % 08/24/21 14:39 Eos % (Auto) 0.3 % 08/24/21 14:39 Baso % (Auto) 0.4 % 08/24/21 14:39 Neut # (Auto) 10.54 10^3/uL (1.8-7.7) H 08/24/21 14:39 Lymph # (Auto) 2.3 10^3/uL (0.8-4.8) 08/24/21 14:39 [place] # (Auto) 1.1 10^3/uL (0.2-0.9) H 08/24/21 14:39 Eos # (Auto) 0.0 10^3/uL (0.0-0.8) 08/24/21 14:39 Baso # (Auto) 0.1 10^3/uL (0.0-0.1) 08/24/21 14:39 Nucleated RBC % (auto) 0 % 08/24/21 14:39 Nucleated RBCs # 0.0 /100WBC 08/24/21 14:39 Sodium 139 mmol/L (136-145) 08/24/21 14:39 Potassium 4.4 mmol/L (3.5-5.1) 08/24/21 14:39 Chloride 102 mmol/L (98-107) 08/24/21 14:39 Carbon Dioxide 22 mmol/L (22-29) 08/24/21 14:39 Anion Gap 19.4 (5-19) H 08/24/21 14:39 BUN 23 mg/dL (8-23) 08/24/21 14:39 Creatinine 0.8 mg/dL (0.7-1.2) 08/24/21 14:39 GFR Calculation 98.6 mL/min (90-130) 08/24/21 14:39 Glucose 86 mg/dL (65-115) 08/24/21 14:39 Calculated Osmolality 291 mOsm/kg (285-295) 08/24/21 14:39 Calcium 9.7 mg/dL (8.5-10.5) 08/24/21 14:39 Total Bilirubin 0.4 mg/dL (0.15-1.2) 08/24/21 14:39 AST 19 U/L (0-40) 08/24/21 14:39 ALT 15 U/L (0-41) 08/24/21 14:39 Alkaline Phosphatase 88 IU/L (40-130) 08/24/21 14:39 Total Protein 7.7 g/dL (6.6-8.7) 08/24/21 14:39 Albumin 4.0 g/dL (3.5-5.2) 08/24/21 14:39 Globulin 3.7 g/dL (1.3-4.6) 08/24/21 14:39 Urine Color Yellow (Yellow) 08/24/21 16:13 Urine Appearance Clear (CLEAR) 08/24/21 16:13 Urine pH 5 (5-7) 08/24/21 16:13 Ur Specific [place] 1.010 (1.005-1.030) 08/24/21 16:13 Urine Protein Trace (Negative) 08/24/21 16:13 Urine Glucose (UA) Norm (Normal) 08/24/21 16:13 Urine Ketones 3+ (Negative) H 08/24/21 16:13 Urine Blood 2+ (Negative) H 08/24/21 16:13 Urine Nitrate Negative (Negative) 08/24/21 16:13 Urine Bilirubin Neg (Negative) 08/24/21 16:13 Urine Urobilinogen Norm mg/dL (Negative) 08/24/21 16:13 Ur Leukocyte Esterase Negative (Negative) 08/24/21 16:13 Urine RBC None /hpf (0-2) 08/24/21 16:13 Urine WBC 0-4 /hpf (0-5) H 08/24/21 16:13 Ur Squamous Epith Cells None /hpf (0-5) 08/24/21 16:13 Amorphous Sediment Not Reportable 08/24/21 16:13 Urine Bacteria Trace /hpf (NONE) 08/24/21 16:13 Discharge Plan Discharge Patient Disposition: Admitted As Inpatient Clinical Impression: Status post cervical spinal fusion Dysphagia Qualifiers: Dysphagia type: unspecified Qualified Code(s): R13.10 - Dysphagia, unspecified Fluid collection at surgical site Qualifiers: Encounter type: subsequent encounter Qualified Code(s): T88.8XXD - Other specified complications of surgical and medical care, not elsewhere classified, subsequent encounter Condition: Stable Coding Level of Care Code ED Director [employer] Fwd Exam Detailed Documented by User: Garcia Aguila DO 08/24/21 17:49 HPI - Neck Pain/Injury General: Chief Complaint: General Medical Stated Complaint: trouble swallowing Time Seen by Provider: 08/24/21 14:19 PFSH ED PFSH: Medical History Bilateral renal stones BPH loc w urin obs/LUTS S/P extracorporeal shock wave therapy Ureteral calculus, right Surgical History H/O knee surgery History of shoulder surgery Hx of cataract surgery bilateral Family History Mother , at age 69 Renal failure Social History Smoking and tobacco status: current every day smoker Alcohol intake: never Marital status: Current occupational status: retired History of recent travel: No Physical Exam Neuro: WALTER COMA SCALE: document GCS findings [place] coma scale total score: 15 Course Vital Signs: Vital signs: Vital Signs Temperature 98.2 F 08/24/21 16:37 Pulse Rate 95 08/24/21 16:37 Respiratory Rate 16 08/24/21 16:37 Blood Pressure 150/95 08/24/21 16:37 Pulse Oximetry 95 08/24/21 16:37 MDM - Neck Pain/Injury Medical Decision Making Chart reviewed and patient discussed with midlevel. Agree with assessment and plan. Orders written Lab Data : 08/24/21 14:39 08/24/21 14:[address] 08/24/21 14:15 IMPRESSION: When compared with 08/22/2021, the retropharyngeal fluid collection has increased in size in the interval. ADDENDUM: 08/24/21 1641 The retropharyngeal fluid collection measures 7 x 3.8 x 1.8 cm. By my measurements the collection on the previous exam from 08/22/2021 measured 6.2 x 2.3 x 1.2 cm. THIS REPORT CONTAINS FINDINGS THAT MAY BE CRITICAL TO PATIENT CARE. The findings were verbally communicated via telephone conference with Janis Cancino at 4:39 PM CDT on 08/24/2021. The findings were acknowledged and understood. Chest X-Ray 08/24/21 15:10
[2021-08-24] MEDS: iohexol 350 mg/mL 100 mL Btl IV (14:58)
[2021-08-24 15:05] LABS: Alanine Aminotransferase 15 U/L (0-41); Alkaline Phosphatase 88 IU/L (40-130); Anion Gap 19.4 (5-19); Aspartate Amino Transferase 19 U/L (0-40); Blood Urea Nitrogen 23 mg/dL (8-23); Calcium 9.7 mg/dL (8.5-10.5); Carbon Dioxide 22 mmol/L (22-29); Chloride 102 mmol/L (98-107); Globulin 3.7 g/dL (1.3-4.6); Glomerular Filtration Rate 98.6 mL/min (90-130); Glucose 86 mg/dL (65-115); Osmolality Calculated 291 mOsm/kg (285-295); Potassium 4.4 mmol/L (3.5-5.1); Sodium 139 mmol/L (136-145); Total Bilirubin 0.4 mg/dL (0.15-1.2); Total Protein 7.7 g/dL (6.6-8.7)
[2021-08-24] MEDS: morphine 4 mg/mL SDV 1 mL IVP (15:05)
[2021-08-24] MEDS: ondansetron 2 mg/ML SDV 2 mL 4 MG IVP (15:05)
--- NOTE | 2021-08-24 15:10 | XRR_ITS ---
PROCEDURE INFORMATION: Exam: XR Chest Exam date and time: 08/24/2021 3:14 PM Age: 60 years old Clinical indication: Other: Trouble swallowing; Prior surgery; Surgery type: Neck; Additional info: Trouble swallowing; Recent surgery TECHNIQUE: Imaging protocol: Radiologic exam of the chest. Views: 1 view. COMPARISON: CT chest w con* [id number] 08/22/2021 11:24 PM FINDINGS: Lungs: Unremarkable. No consolidation. Pleural spaces: Unremarkable. No pleural effusion. No pneumothorax. Heart/Mediastinum: Unremarkable. No cardiomegaly. Bones/joints: Unremarkable. XR/XR chest 1V portable [id number] IMPRESSION: No acute findings.
[2021-08-24] MEDS: sodium chloride 0.9% 1,000 ML 999 ML IV (16:18)
[2021-08-24 16:41] LABS: Add Urine Microscopic? YES; Bilirubin Urine Neg (Negative); Blood Urine 2+ (Negative); Glucose Urine UA Norm (Normal); Ketones Urine 3+ (Negative); Leukocyte Esterase Urine Negative (Negative); Nitrate Urine Negative (Negative); Protein Urine Trace (Negative); Urine Appearance Clear (CLEAR); Urine Color Yellow (Yellow); Urobilinogen Urine Norm (Negative); WBC Urine 0-4 /hpf (0-5); pH Urine 5 (5-7)
[2021-08-24 16:42] LABS: Add Urine Culture? No; Bacteria Urine TRACE /hpf
[2021-08-24] MEDS: dexamethasone 10 mg/mL INJ IVP (17:55)
--- NOTE | 2021-08-24 18:20 | PM.HP ---
Providers/Chief Complaint Primary Care Provider: Rosendo Alaniz DO Chief Complaint: trouble swallowing History of Present Illness Park Dunlap is a 60 year old male with recent medical history of post cervical fusion by Dr. Garnica, with a history of BPH, bilateral renal artery stones who presents a 2 days history of difficulty of swallowing. Patient had a cervical fusion by Dr. Garnica, he tells me that after surgery he had trouble swallowing solids and liquids, no trouble breathing. He presented to the emergency room, he was given steroids and sent home, however he cannot swallow any liquids. No trouble breathing, he woke up this morning with persistent inability to swallow solids and liquids, at times he has trouble swallowing his saliva. Denies any neck pain, denies any trouble breathing, no wheezing. Review of Systems Const: Denies: fever(s), fatigue or malaise Resp: Denies: dyspnea, productive cough, non-productive cough or wheezing GI: Denies: abdominal pain, nausea, vomiting or hematemesis : Denies: dysuria Musc: Denies: neck pain or back pain Neuro: Denies: headache(s) Medications/Allergies Home Medications Medication Instructions Recorded Confirmed Last Taken Type aspirin 81 mg tablet,delayed 81 mg PO DAILY 09/27/19 08/21/21 08/16/21 History release (Aspir-) cyclobenzaprine 5 mg tablet 5 mg PO BID PRN tab 09/27/19 08/21/21 08/20/21 History lisinopril 5 mg tablet 5 mg PO DAILY 09/27/19 08/21/21 08/20/21 History loratadine 10 mg tablet 10 mg PO DAILY 09/27/19 08/21/21 11/28/19 History multivitamin 1 tab PO DAILY 09/27/19 08/21/21 08/20/21 History omeprazole 20 mg capsule,delayed 20 mg PO DAILY 09/27/19 08/21/21 08/21/21 History release super beta pros 1 cap CAUDAL BLOCK DAILY 09/27/19 08/21/21 08/20/21 History bupropion HCl 150 mg 24 hr tablet, 150 mg PO QAM 10/07/19 08/21/21 08/20/21 History extended release (Wellbutrin XL) magnesium 250 mg tablet 250 mg PO DAILY 11/28/19 08/21/2108/20/22 History fluoxetine 20 mg capsule (Prozac) 20 mg PO DAILY 10/31/20 08/21/21 08/20/21 History hydroxyzine HCl 25 mg tablet 25 mg PO .AT NIGHT tab 10/31/20 08/21/21 08/20/21 History naproxen 500 mg tablet 500 mg PO BID 10/31/20 08/21/21 08/20/21 History oxycodone-acetaminophen 10 mg-325 1 tab PO Q6H PRN 01/24/21 08/21/21 08/21/21 History mg tablet memory factor 1 tab PO BID 04/25/21 08/21/21 08/20/21 History tamsulosin 0.4 mg capsule 0.8 mg PO DAILY #180 cap 04/25/21 08/21/21 08/20/21 Rx Bone Growth Stimulator [id number] #1 ea 08/12/21 Unknown Rx oxycodone-acetaminophen 10 mg-325 1 - 2 tab PO Q4H PRN 7 Days #40 tab 08/22/21 Unknown Rx mg tablet oxycodone 5 mg/5 mL oral solution 5 mg (5 mL) PO Q4H PRN #100 ml 08/23/21 Unknown Rx prednisolone sodium phosphate 20 See Rx Instructions .ROUTE 08/23/21 Unknown Rx mg/5 mL (4 mg/mL) oral solution .COMPLEX 5 Days #80 ml Allergies Allergy/AdvReac Type Severity Reaction Status Date / Time amoxicillin Allergy ALGY-Rash Verified 08/24/21 13:14 cephalexin [From Keflex] Allergy ADR-Dizzine Verified 08/24/21 13:14 ss Cephalosporins Allergy Unknown Verified 08/24/21 13:14 hydrochlorothiazide Allergy Unknown Verified 08/24/21 13:14 nicotine Allergy unknown Verified 08/24/21 13:14 Penicillins Allergy ALGY-Rash Verified 08/24/21 13:14 pregabalin [From Lyrica] Allergy Unknown Verified 08/24/21 13:14 simvastatin Allergy Unknown Verified 08/24/21 13:14 PFSH Acute PFSH: Medical History Bilateral renal stones BPH loc w urin obs/LUTS S/P extracorporeal shock wave therapy Ureteral calculus, right Surgical History H/O knee surgery History of shoulder surgery Hx of cataract surgery bilateral Family History Mother , at age 69 Renal failure Social History Smoking and tobacco status: current every day smoker Alcohol intake: never Marital status: Current occupational status: retired History of recent travel: No Vitals/I&O/Wt Last Vital Signs Temp 98.2 F 08/24/21 16:37 Pulse 95 08/24/21 16:37 Resp 16 08/24/21 16:37 BP 150/95 08/24/21 16:37 Pulse Ox 95 08/24/21 16:37 Weight last 48 hrs Weight 77.111 kg Physical Exam Const: COMMON NORMALS: no acute distress and patient oriented x3 HENMT: COMMON NORMALS: normocephalic HEAD & SCALP: normocephalic Neck/C-Spine: OTHER: patient is in cervical collar Resp: COMMON NORMALS: normal respiratory effort, No retractions, No use of accessory muscles and clear to auscultation bilaterally AUSCULTATION: clear to auscultation bilaterally Cardio: COMMON NORMALS: no JVD, regular rate, regular rhythm, S1 normal heart sound present and S2 normal heart sound present RATE: regular rate RHYTHM: regular rhythm HEART SOUNDS: S1 normal heart sound present and S2 normal heart sound present GI: COMMON NORMALS: Normal to inspection, nondistended, normoactive bowel sounds present, Soft to palpation, non-tender, No hepatosplenomegaly present, no masses and no bruits PALPATION: Yes Soft to palpation and Yes No hepatosplenomegaly present Extremity: COMMON NORMALS: capillary refill normal, no clubbing, cyanosis or edema, no calf tenderness and no pedal edema Neuro: COMMON NORMALS: patient oriented x3 Psych: COMMON NORMALS: mental status grossly normal Data : 08/24/21 14:39 08/24/21 14:39 A&P Assessment and plan (1) Postoperative seroma: Status: Acute Plan -The retropharyngeal fluid collection measures 7 x 3.8 x 1.8 cm. By my measurements the collection on the previous exam from 08/22/2021 measured 6.2 x 2.3 x 1.2 cm. - will start decadron 10mg q12hrs PRN to decrease swelling - will start vancomycin and primaxin for possible infectious etiology -NPO -IVF fluids -monitor respiratory status closely, monitor swallowing -Dr. garnica consult for surgery -scd for dvt prophylaxis, anticoagulation relatively contraindicated given postoperative seroma -full code ? Attestations Medical Necessity Statement*: Patient requires hospitalization for postoperative fluid collection likely seroma versus fluid Coding Level of Care Code Acute Tram Inspector for [facility] Fwd Diagnoses Postoperative seroma
--- NOTE | 2021-08-24 18:30 | PC.NURSE ---
Attempted to call report, room not ready and nurse not assigned yet. States they will have a nurse call me back.
--- NOTE | 2021-08-24 18:54 | PC.NURSE ---
2nd attempt to call report, nurse unavailable. States Maryjo will call me back in a few minutes
--- NOTE | 2021-08-24 19:38 | PC.NURSE ---
Attempted to call report for 3rd time, no answer
[2021-08-24 20:29] LABS: Thyroid Stimulating Hormone 0.09 uIU/mL (0.27-4.20)
[2021-08-24] MEDS: morphine 4 mg/mL SDV 1 mL 2 MG IVP (20:53)
[2021-08-24] MEDS: D5-NS 0.45% + KCL 20 mEq 20 MEQ/1,000 ML BAG 125 MEQ IV (20:56)
[2021-08-24] MEDS: pantoprazole 40 mg SDV IVP (20:56)
--- NOTE | 2021-08-24 21:07 | PC.PHAR ---
Pharmacokinetic dosing service Date: 08/24/2021 Time: 2100 Objective: Patient: Park Dunlap Floor: 270-1 Age: 60 yo Serum creatinine: 0.8 mg/dL Height: 72.0 Inches Weight (kg): 77.11 Diagnosis: Relevant medical/social history: Cultures and sensitivities: Other labs: Assessment: IBW (kg): 77.60 Dosing wt(kg): 77.11 Estimated Creatinine clearance (ml/min): 107.1 CRCL method: Cockcroft and Gault using ibw(default). Drug selected: Vancomycin Loading dose (mg): 0 Vd (liters): 69.4 (factor used: 0.9 L/kg) [place] (hr-1): 0.093 Half life (hrs): 7.45 Recommended dose: 1500 mg Interval: 12 hrs Infusion time (hrs): 1.5 Predicted peak (mcg/mL): 30.0 Predicted trough (mcg/mL): 11.30 Total body weight is being used for vancomycin dosing. Renal function is stable [ ] /unstable [ ] Recommendations: Give Vancomycin 1500 mg q 12 hrs with an expected Cpeak of 30.0 mcg/ml and an expected Ctrough of 11.30 mcg/ml Renal dosing of other antibiotics (review renal dosing of other medications and list guidelines here): Thank you for the consult, will continue to follow. Signature: Nadia Sigala [facility]ly [facility]
[2021-08-24 21:53] LABS: Lactic Sepsis W/Reflex 1.1 mmol/L (0.5-2.2)
[2021-08-25] VITALS (8 sets, daily range): BP systolic 146–187; BP diastolic 85–97; PULSE 74–103; RESP 16–18; TEMP 36.6–37.2; O2SAT 95–100
[2021-08-25 04:19] LABS: Basophils % 0.1 %; Hematocrit 37.7 % (42.0-52.0); Hemoglobin 12.7 g/dL (11.7-16.6); Lymphocytes # 1.2 10^3/uL (0.8-4.8); Lymphocytes % 11.8 %; Mean Corpuscular HGB Conc 33.7 g/dL (30.0-36.0); Mean Corpuscular Hemoglobin 30.6 pg (28.0-34.0); Mean Corpuscular Volume 90.8 fl (80-94); Mean Platelet Volume 9.8 fL (7.4-10.4); Monocytes # 0.3 10^3/uL (0.2-0.9); Monocytes % 2.8 %; Neutrophils # 8.39 10^3/uL (1.8-7.7); Neutrophils % 85.1 %; Nucleated Red Blood Cells % 0 %; Platelet Count 311 10^3/cmm (130-400); Red Blood Count 4.15 10^6/uL (4.1-5.3); Red Cell Distribution Width 13.2 % (12.1-15.1); White Blood Count 9.9 10^3/uL (4.0-10.0)
[2021-08-25 04:40] LABS: Alanine Aminotransferase 14 U/L (0-41); Albumin Level 3.6 g/dL (3.5-5.2); Alkaline Phosphatase 86 IU/L (40-130); Anion Gap 17.1 (5-19); Aspartate Amino Transferase 14 U/L (0-40); Blood Urea Nitrogen 22 mg/dL (8-23); Calcium 9.1 mg/dL (8.5-10.5); Carbon Dioxide 22 mmol/L (22-29); Chloride 102 mmol/L (98-107); Globulin 3.5 g/dL (1.3-4.6); Glucose 158 mg/dL (65-115); Magnesium 2.2 mg/dL (1.7-2.3); Osmolality Calculated 291 mOsm/kg (285-295); Potassium 4.1 mmol/L (3.5-5.1); Sodium 137 mmol/L (136-145); Total Bilirubin 0.3 mg/dL (0.15-1.2); Total Protein 7.1 g/dL (6.6-8.7)
[2021-08-25] MEDS: dexamethasone 10 mg/mL INJ IVP (05:14)
[2021-08-25] MEDS: D5-NS 0.45% + KCL 20 mEq 20 MEQ/1,000 ML BAG 125 MEQ IV ×2 (05:15→15:50)
[2021-08-25] MEDS: morphine 4 mg/mL SDV 1 mL 2 MG IVP ×3 (06:00→16:38)
[2021-08-25 09:25] LABS: Free T4 Free Thyroxine 1.51 ng/dL (0.82-1.77); T3 Free 2.3 PG/ML (2.0-4.4)
--- NOTE | 2021-08-25 12:12 | PM.CONSULT ---
Providers/Reason For Consult Consulting Physician/Specialty*: hospitalist Reason for Consult*: dysphagia Attending Physician: Yunior Hardwick MD Primary Care Provider: Rosendo Alaniz DO History of Present Illness History of Present Illness Park Dunlap is a 60 year old male had 4-level ACDF developed dysphagia unable to eat or drink. He was admitted given fluids and steroid. pt states he is feeling better today Review of Systems Const: Denies: fever(s), fatigue or malaise Resp: Denies: dyspnea, productive cough, non-productive cough or wheezing GI: Denies: abdominal pain, nausea, vomiting or hematemesis : Denies: dysuria Musc: Denies: neck pain or back pain Neuro: Denies: headache(s) Medications/Allergies Home Medications Medication Instructions Recorded Confirmed Last Taken Type aspirin 81 mg tablet,delayed 81 mg PO DAILY 09/27/19 08/25/21 08/16/21 History release (Aspir-) cyclobenzaprine 5 mg tablet 5 mg PO BID PRN tab 09/27/19 08/25/21 08/20/21 History lisinopril 5 mg tablet 5 mg PO DAILY 09/27/19 08/25/21 08/20/21 History loratadine 10 mg tablet 10 mg PO DAILY 09/27/19 08/25/21 11/28/19 History multivitamin 1 tab PO DAILY 09/27/19 08/25/21 08/20/21 History omeprazole 20 mg capsule,delayed 20 mg PO DAILY 09/27/19 08/25/21 08/21/21 History release bupropion HCl 150 mg 24 hr tablet, 300 mg PO QAM 10/07/19 08/25/21 08/20/21 History extended release (Wellbutrin XL) magnesium 250 mg tablet 250 mg PO DAILY 11/28/19 08/25/21 08/20/21 History fluoxetine 20 mg capsule (Prozac) 20 mg PO DAILY 10/31/20 08/25/21 08/20/21 History hydroxyzine HCl 25 mg tablet 25 mg PO BEDTIME tab 10/31/20 08/25/21 08/20/21 History naproxen 500 mg tablet 500 mg PO BID PRN 10/31/20 08/25/21 08/20/21 History memory factor 1 tab PO BID 04/25/21 08/25/21 08/20/21 History Bone Growth Stimulator E0748 #1 ea 08/12/21 08/25/21 Unknown Rx oxycodone-acetaminophen 10 mg-325 1 - 2 tab PO Q4H PRN 7 Days #40 tab 08/22/21 08/25/21 Unknown Rx mg tablet saw palm 160 mg-vit E 100 1 tab PO DAILY 08/25/21 08/25/21 Unknown History unit-selen 100 chu-zkjc-wqjeos-pygeum tablet (Prostate Health) tamsulosin 0.4 mg capsule 0.4 mg PO DAILY 08/25/21 08/25/21 Unknown History Allergies Allergy/AdvReac Type Severity Reaction Status Date / Time amoxicillin Allergy ALGY-Rash Verified 08/24/21 13:14 cephalexin [From Keflex] Allergy ADR-Dizzine Verified 08/24/21 13:14 ss Cephalosporins Allergy Unknown Verified 08/24/21 13:14 hydrochlorothiazide Allergy Unknown Verified 08/24/21 13:14 nicotine Allergy unknown Verified 08/24/21 13:14 Penicillins Allergy ALGY-Rash Verified 08/24/21 13:14 pregabalin [From Lyrica] Allergy Unknown Verified 08/24/21 13:14 simvastatin Allergy Unknown Verified 08/24/21 13:14 Current Medications Generic Name Dose Route Start Last Admin Trade Name Freq PRN Reason Stop Dose Admin Bupropion HCl 150 mg 08/25/21 06:00 08/25/21 05:17 Bupropion Xl (24 Hr) 150 Mg Tablet PO Not Given QAM LUZ MARIA Dexamethasone 10 mg 08/25/21 06:00 08/25/21 05:14 Dexamethasone 10 Mg/Ml Inj IVP 10 mg Q12H LUZ MARIA Administration Fluoxetine HCl 20 mg 08/25/21 09:00 08/25/21 08:22 Fluoxetine 20 Mg Capsule PO Not Given DAILY LUZ MARIA Potassium Chloride/Dextrose/Sod Cl 20 meq in 1,000 mls @ 125 mls/hr 08/24/21 19:48 08/25/21 05:15 D5-Ns 0.45% + Kcl 20 Meq IV 125 mls/hr .Q8H LUZ MARIA Administration Imipenem/Cilastatin Sodium 500 100 mls @ 200 mls/hr 08/24/21 21:00 08/25/21 08:45 mg/ Sodium Chloride IV Infused Q6H LUZ MARIA Infusion Protocol Vancomycin HCl 1,500 mg/ 250 mls @ 166.667 mls/hr 08/24/21 21:00 08/25/21 11:03 Sodium Chloride IV Infused Q12H LUZ MARIA Infusion Lisinopril 5 mg 08/25/21 09:00 08/25/21 08:22 Lisinopril 5 Mg Tablet PO Not Given DAILY LUZ MARIA Morphine Sulfate 2 mg 08/24/21 19:48 08/25/21 06:00 Morphine 4 Mg/Ml Sdv 1 Ml IVP 2 mg Q4H PRN Administration SEVERE PAIN Pantoprazole Sodium 40 mg 08/24/21 19:48 08/24/21 20:56 Pantoprazole 40 Mg Sdv IVP 40 mg Q24H LUZ MARIA Administration Tamsulosin HCl 0.8 mg 08/25/21 09:00 08/25/21 08:22 Tamsulosin 0.4 Mg Capsule PO Not Given DAILY LUZ MARIA PFSH Acute PFSH: Medical History Bilateral renal stones BPH loc w urin obs/LUTS S/P extracorporeal shock wave therapy Ureteral calculus, right Surgical History H/O knee surgery History of shoulder surgery Hx of cataract surgery bilateral Family History Mother , at age 69 Renal failure Social History Smoking and tobacco status: current every day smoker Alcohol intake: never Marital status: Current occupational status: retired History of recent travel: No Vitals/I&O/Wt Last Vital Signs Temp 98.9 F 08/25/21 08:00 Pulse 92 08/25/21 08:00 Resp 17 08/25/21 08:00 BP 187/97 08/25/21 08:00 Pulse Ox 97 08/25/21 08:00 08/24/21 08/25/21 08/25/21 22:59 06:59 14:59 Intake Total 1110 / 1110 1350 / 2460 350 / 350 Output Total 3100 / 3100 Balance 1110 / 1110 -1750 / -640 350 / 350 Weight last 48 hrs Weight 170 lb Physical Exam Narrative: CONSTITUTIONAL: The patient is a normal appearing [] in no apparent distress. GENERAL: Patient in no acute distress. CARDIAC: Regular rate and rhythm. CHEST: Normal inspiratory effort, normal respiratory rate. ABDOMEN: Soft and nontender. SKIN: Clear, warm and intact. NEURO?PSYCH: The patient is alert and oriented to person, place and time. Sensorv /SILT Motor StrengthShoulder abduction C5 5/5Wrist extension C6 5/5Elbow extension C7 5/5Hand Range Conservationist C8 5/5Finger abduction T15/5 Radial/ Ulnar/ Median n intact LowerSensory (SILT)Motor StrengthHin flexion L2/3Ant/inner thigh 5/5Hip adduction L2/3 5/5Knee extension L4 Lat thigh, 5/5Toe dorsiflexion L5 5/5Ankle dorsiflexion L5/ [id number] flexion S1 5/5 DTRBleeps 2+Triceps 2+Brachioradialis 2+Patellar 2+Achilles 2+ MUSCULOSKELETAL: [] UPPEREXTREMITIES: The patient had full active ROM in fingers, wrist, elbow, and shoulder. The patient demonstrated ability to fully flex/extend/abduct/adduct fingers, make ok sign, cross 2nd/3rd digits, extend 1st digit fully.. Radial pulse 2+, CR<2 seconds. LOWER EXTREMITIES: Pt has full, active ROM of toes, ankle, knee, and hip. Dorsalis pedis/posterior tibialis pulses 2+, CR<2 seconds. SPINE: Skin warm, dry, intact. Data : 08/25/21 04:04 08/25/21 04:04 Micro: Microbiology 08/24/21 22:30 MRSA Culture - Final Nose A&P Assessment and plan (1) Difficulty swallowing: Try eating ice cream and popsicles OK to stop NPO status from my standpoint OK to D/C if able to tolerate fluids Status: Acute Coding Level of Care Code Acute Sales Floor Associate for Dale White Diagnoses Difficulty swallowing R13.10
--- NOTE | 2021-08-25 14:15 | P.PN_ITS ---
Subjective Subjective: Patient was seen this morning, he tells me that his swallowing function is improving, he can swallow a bit better, no shortness of breath, no fevers Vitals/I&O/Wt Last Vital Signs Temp 98.0 F 08/25/21 12:00 Pulse 74 08/25/21 12:00 Resp 16 08/25/21 12:00 BP 151/97 08/25/21 12:00 Pulse Ox 98 08/25/21 12:00 08/24/21 08/25/21 08/25/21 22:59 06:59 14:59 Intake Total 1110 / 1110 1350 / 2460 1350 / 1350 Output Total 3100 / 3100 Balance 1110 / 1110 -1750 / -640 1350 / 1350 Weight last 48 hrs Weight 77.111 kg Physical Exam Const: COMMON NORMALS: no acute distress and patient oriented x3 Neck/C-Spine: OTHER: Currently in a cervical collar Resp: COMMON NORMALS: normal respiratory effort, No retractions, No use of accessory muscles and clear to auscultation bilaterally AUSCULTATION: clear to auscultation bilaterally Cardio: COMMON NORMALS: regular rate, regular rhythm, S1 normal heart sound present and S2 normal heart sound present RATE: regular rate RHYTHM: regular rhythm HEART SOUNDS: S1 normal heart sound present and S2 normal heart sound present GI: COMMON NORMALS: Normal to inspection, nondistended, normoactive bowel sounds present, Soft to palpation and non-tender PALPATION: Yes Soft to palpation Extremity: COMMON NORMALS: no pedal edema Neuro: COMMON NORMALS: patient oriented x3 Psych: COMMON NORMALS: mental status grossly normal Data : 08/25/21 04:04 08/25/21 04:04 Micro: Microbiology 08/24/21 22:30 MRSA Culture - Final Nose A&P Assessment and plan (1) Postoperative seroma: Status: Acute Plan -The retropharyngeal fluid collection measures 7 x 3.8 x 1.8 cm. By my measurements the collection on the previous exam from 08/22/2021 measured 6.2 x 2.3 x 1.2 cm. - will start decadron 10mg q12hrs PRN to decrease swelling - will start vancomycin and primaxin for possible infectious etiology -NPO -IVF fluids -monitor respiratory status closely, monitor swallowing -Dr. garnica consult for surgery -scd for dvt prophylaxis, anticoagulation relatively contraindicated given postoperative seroma -full code ? Attestations Medical Necessity Statement*: Patient requires hospitalization for postoperative retropharyngeal fluid collection, inpatient, greater than 2 midnights Coding Level of Care Code Acute Administrative Underwriter for g Fwd Diagnoses Postoperative seroma
--- NOTE | 2021-08-25 18:13 | PM.DCS ---
Discharge Providers Date of Admission: 08/24/21 17:44 Date of Discharge: August 25, 2021 Attending Provider at Admission: Yunior Hardwick MD Attending Provider at Discharge: Yunior Hardwick MD Primary Care Provider: Rosendo Alaniz DO Diagnoses at Discharge Discharge Diagnosis (1) Postoperative seroma: Status: Acute Reason for Visit Reason for Visit: trouble swallowing Hospital Course Hospital Course Park Dunlap is a 60 year old male with recent medical history of post cervical fusion by Dr. Rosado, with a history of BPH, bilateral renal artery stones who presents a 2 days history of difficulty of swallowing. Patient had a cervical fusion by Dr. Rosado, he tells me that after surgery he had trouble swallowing solids and liquids, no trouble breathing. Patient was admitted to [facility] for retropharyngeal seroma, managed with broad-spectrum antibiotic therapy, Decadron therapy, clinically monitor. Patient clinically improved, swallowing improved, able to tolerate clear liquids. Discharged on clear liquid diet, Decadron 6 6 mg for for many days, follow-up with Dr. Rosado as outpatient Physical Exam Const: COMMON NORMALS: no acute distress and patient oriented x3 Resp: COMMON NORMALS: normal respiratory effort, No retractions, No use of accessory muscles and clear to auscultation bilaterally AUSCULTATION: clear to auscultation bilaterally Cardio: COMMON NORMALS: regular rate, regular rhythm, S1 normal heart sound present and S2 normal heart sound present RATE: regular rate RHYTHM: regular rhythm HEART SOUNDS: S1 normal heart sound present and S2 normal heart sound present GI: COMMON NORMALS: Normal to inspection, nondistended, normoactive bowel sounds present, Soft to palpation, non-tender and No hepatosplenomegaly present PALPATION: Yes Soft to palpation and Yes No hepatosplenomegaly present Extremity: COMMON NORMALS: no pedal edema Neuro: COMMON NORMALS: patient oriented x3 Psych: COMMON NORMALS: mental status grossly normal Discharge Data Studies Completed and Pending Completed Studies During Hospitalization Category Date Time Status CT neck w con* [id number] Urgent Cat Scan 08/24/21 14:15 Completed XR chest 1V portable [id number] Urgent Exams 08/24/21 15:10 Completed Pending at discharge Category Date Time Status Complete Blood Count w/Auto AM LABS Lab 08/26/21 04:00 Ordered Complete Blood Count w/Auto AM LABS Lab 08/27/21 04:00 Ordered Complete Blood Count w/Auto AM LABS Lab 08/28/21 04:00 Ordered Comprehensive Metabolic Panel AM LABS Lab 08/26/21 04:00 Ordered Comprehensive Metabolic Panel AM LABS Lab 08/27/21 04:00 Ordered Comprehensive Metabolic Panel AM LABS Lab 08/28/21 04:00 Ordered Magnesium AM LABS Lab 08/26/21 04:00 Ordered Magnesium AM LABS Lab 08/27/21 04:00 Ordered Phosphorus AM LABS Lab 08/26/21 04:00 Ordered Phosphorus AM LABS Lab 08/27/21 04:00 Ordered Vancomycin Trough Timed Lab 08/26/21 08:00 Ordered Radiology Impressions Neck CT 08/24/21 14:15 IMPRESSION: When compared with 08/22/2021, the retropharyngeal fluid collection has increased in size in the interval. ADDENDUM: 08/24/21 1258 The retropharyngeal fluid collection measures 7 x 3.8 x 1.8 cm. By my measurements the collection on the previous exam from 08/22/2021 measured 6.2 x 2.3 x 1.2 cm. THIS REPORT CONTAINS FINDINGS THAT MAY BE CRITICAL TO PATIENT CARE. The findings were verbally communicated via telephone conference with Janis Cancino at 4:39 PM CDT on 08/24/2021. The findings were acknowledged and understood. Chest X-Ray 08/24/21 15:10 IMPRESSION: No acute findings. Laboratory Results WBC 9.9 10^3/uL (4.0-10.0) 08/25/21 04:04 RBC 4.15 10^6/uL (4.1-5.3) 08/25/21 04:04 Hgb 12.7 g/dL (11.7-16.6) 08/25/21 04:04 Hct 37.7 % (42.0-52.0) L 08/25/21 04:04 MCV 90.8 fl (80-94) 08/25/21 04:04 MCH 30.6 pg (28.0-34.0) 08/25/21 04:04 MCHC 33.7 g/dL (30.0-36.0) 08/25/21 04:04 RDW 13.2 % (12.1-15.1) 08/25/21 04:04 Plt Count 311 10^3/cmm (130-400) 08/25/21 04:04 MPV 9.8 fL (7.4-10.4) 08/25/21 04:04 Neut % (Auto) 85.1 % 08/25/21 04:04 Lymph % (Auto) 11.8 % 08/25/21 04:04 [place] % (Auto) 2.8 % 08/25/21 04:04 Eos % (Auto) 0.0 % 08/25/21 04:04 Baso % (Auto) 0.1 % 08/25/21 04:04 Neut # (Auto) 8.39 10^3/uL (1.8-7.7) H 08/25/21 04:04 Lymph # (Auto) 1.2 10^3/uL (0.8-4.8) 08/25/21 04:04 [place] # (Auto) 0.3 10^3/uL (0.2-0.9) 08/25/21 04:04 Eos # (Auto) 0.0 10^3/uL (0.0-0.8) 08/25/21 04:04 Baso # (Auto) 0.0 10^3/uL (0.0-0.1) 08/25/21 04:04 Nucleated RBC % (auto) 0 % 08/25/21 04:04 Nucleated RBCs # 0.0 /100WBC 08/25/21 04:04 Sodium 137 mmol/L (136-145) 08/25/21 04:04 Potassium 4.1 mmol/L (3.5-5.1) 08/25/21 04:04 Chloride 102 mmol/L (98-107) 08/25/21 04:04 Carbon Dioxide 22 mmol/L (22-29) 08/25/21 04:04 Anion Gap 17.1 (5-19) 08/25/21 04:04 BUN 22 mg/dL (8-23) 08/25/21 04:04 Creatinine 0.7 mg/dL (0.7-1.2) 08/25/21 04:04 GFR Calculation 115.0 mL/min (90-130) 08/25/21 04:04 Glucose 158 mg/dL (65-115) H 08/25/21 04:04 Calculated Osmolality 291 mOsm/kg (285-295) 08/25/21 04:04 Lactic Acid 1.1 mmol/L (0.5-2.2) 08/24/21 20:48 Calcium 9.1 mg/dL (8.5-10.5) 08/25/21 04:04 Phosphorus 3.0 mg/dL (2.5-4.5) 08/25/21 04:04 Magnesium 2.2 mg/dL (1.7-2.3) 08/25/21 04:04 Total Bilirubin 0.3 mg/dL (0.15-1.2) 08/25/21 04:04 AST 14 U/L (0-40) 08/25/21 04:04 ALT 14 U/L (0-41) 08/25/21 04:04 Alkaline Phosphatase 86 IU/L (40-130) 08/25/21 04:04 Total Protein 7.1 g/dL (6.6-8.7) 08/25/21 04:04 Albumin 3.6 g/dL (3.5-5.2) 08/25/21 04:04 Globulin 3.5 g/dL (1.3-4.6) 08/25/21 04:04 TSH 0.09 uIU/mL (0.27-4.20) L 08/24/21 14:39 Free T4 1.51 ng/dL (0.82-1.77) 08/25/21 04:04 Free T3 2.3 PG/ML (2.0-4.4) 08/25/21 04:04 Urine Color Yellow (Yellow) 08/24/21 16:13 Urine Appearance Clear (CLEAR) 08/24/21 16:13 Urine pH 5 (5-7) 08/24/21 16:13 Ur Specific [place] 1.010 (1.005-1.030) 08/24/21 16:13 Urine Protein Trace (Negative) 08/24/21 16:13 Urine Glucose (UA) Norm (Normal) 08/24/21 16:13 Urine Ketones 3+ (Negative) H 08/24/21 16:13 Urine Blood 2+ (Negative) H 08/24/21 16:13 Urine Nitrate Negative (Negative) 08/24/21 16:13 Urine Bilirubin Neg (Negative) 08/24/21 16:13 Urine Urobilinogen Norm mg/dL (Negative) 08/24/21 16:13 Ur Leukocyte Esterase Negative (Negative) 08/24/21 16:13 Urine RBC None /hpf (0-2) 08/24/21 16:13 Urine WBC 0-4 /hpf (0-5) H 08/24/21 16:13 Ur Squamous Epith Cells None /hpf (0-5) 08/24/21 16:13 Amorphous Sediment Not Reportable 08/24/21 16:13 Urine Bacteria Trace /hpf (NONE) 08/24/21 16:13 Vitals Last Vital Signs Temp 97.8 F 08/25/21 15:54 Pulse 100 08/25/21 15:54 Resp 18 08/25/21 16:38 BP 164/96 08/25/21 15:54 Pulse Ox 97 08/25/21 15:54 Discharge Plan Discharge Patient Disposition: Home Condition: Stable Prescriptions: New dexamethasone 0.5 mg/5 mL elixir 4 mg PO DAILY 5 Days Qty: 237 0RF Continued aspirin [Aspir-81] 81 mg tablet,delayed release (DR/EC) 81 mg PO DAILY 0RF loratadine 10 mg tablet 10 mg PO DAILY 0RF lisinopril 5 mg tablet 5 mg PO DAILY 0RF omeprazole 20 mg capsule,delayed release(DR/EC) 20 mg PO DAILY 0RF multivitamin Tablet 1 tab PO DAILY 0RF cyclobenzaprine 5 mg tablet 5 mg PO BID PRN (Reason: Pain) 0RF memory factor 1 tab PO BID 0RF hydroxyzine HCl 25 mg tablet 25 mg PO BEDTIME 0RF fluoxetine [Prozac] 20 mg capsule 20 mg PO DAILY 0RF naproxen 500 mg tablet 500 mg PO BID PRN (Reason: Pain) 0RF Hold Instructions: Resume on 09/12/21. (DME) Bone Growth Stimulator E0748 See Rx Instructions .Route .MEDSUPPLY Qty: 1 0RF Rx Instructions: As directed magnesium 250 mg Tablet 250 mg PO DAILY 0RF bupropion HCl [Wellbutrin XL] 150 mg Tablet Extended Release 24 Hr 300 mg PO QAM 0RF tamsulosin 0.4 mg Capsule 0.4 mg PO DAILY 0RF Prostate Health 160-100-100 mg-unit-mcg Tablet 1 tab PO DAILY 0RF oxycodone-acetaminophen 10-325 mg tablet 1 - 2 tab PO Q4H PRN (Reason: pain) 7 Days Qty: 40 0RF Discharge Orders: Discharge Order (Routine); Ordered 08/25/21 Ordered By: Yunior Hardwick Referrals: Rosendo Alaniz DO [Primary Care Provider] - Discharge Diet: Clear Liquid Discharge Activity: Resume usual activity Patient Instructions: Opioid Safety Discharge Attestations Time Spent in Discharge Care*: less than 30 min Quality Metrics Clinical Quality Measures [ No reported AMI, CVA or VTE this stay] Coding Level of Care Code Acute Chg FW DC note Diagnoses Postoperative seroma
== END 2021-08-25 18:46 | disposition home or self-care (01) | DRG 921 ==
LOC: ER 17:50 → MEDSURG 18:30
PROVIDERS: Physician Assistant; Admitting Provider Family Medicine; Emergency Provider Family Medicine; PCP Emergency Medicine Emergency Medical Services; Visit Provider Family Medicine
DX: K91.873 Postprocedural seroma of a digestive system organ or structure following other procedure (principal); Y83.8 Other surgical procedures as the cause of abnormal reaction of the patient, or of later complication, without mention of misadventure at the time of the procedure; R13.10 Dysphagia, unspecified; M54.2 Cervicalgia; Z98.1 Arthrodesis status; N40.0 Benign prostatic hyperplasia without lower urinary tract symptoms; F17.200 Nicotine dependence, unspecified, uncomplicated; Z87.442 Personal history of urinary calculi; Z79.82 Long term (current) use of aspirin; Z79.891 Long term (current) use of opiate analgesic; Z79.899 Other long term (current) drug therapy
CPT/HCPCS: 36415; 70491; 71045; 80053; 81001; 83605; 83735; 84100; 84439; 84443; 84481; 85025; 87641; 92610; 94664; 96361; 96374; 96375; 99285; C9113; J0743; J1100; J2270; J2405; J3370; J7030; J7050; Q9967

== ENCOUNTER → 2021-08-29 09:03 | Outpatient (BNVA) | payer OTHER, SELFPAY | PROVIDERS: PCP Emergency Medicine Emergency Medical Services; Visit Provider Physician Assistant | DX: Z98.1 Arthrodesis status (principal); Z47.89 Encounter for other orthopedic aftercare; F17.200 Nicotine dependence, unspecified, uncomplicated; Z71.6 Tobacco abuse counseling | CPT/HCPCS: 99024; 99407 ==

== ENCOUNTER → 2021-09-05 13:16 | Outpatient (BNVA) | payer OTHER, SELFPAY | PROVIDERS: PCP Emergency Medicine Emergency Medical Services; Visit Provider Orthopaedic Surgery | DX: Z47.89 Encounter for other orthopedic aftercare (principal); Z98.890 Other specified postprocedural states; Z98.1 Arthrodesis status | CPT/HCPCS: 99024 ==

== ENCOUNTER → 2021-10-03 13:00 | Outpatient (BNVA) | payer OTHER, SELFPAY | PROVIDERS: PCP Emergency Medicine Emergency Medical Services; Visit Provider Orthopaedic Surgery | DX: Z98.1 Arthrodesis status (principal) | CPT/HCPCS: 72040; 99024 ==

== ENCOUNTER → 2021-10-10 15:18 | Outpatient (BNVA) | payer OTHER, SELFPAY | PROVIDERS: PCP Emergency Medicine Emergency Medical Services; Visit Provider Physician Assistant | DX: Z47.89 Encounter for other orthopedic aftercare (principal); Z98.890 Other specified postprocedural states; Z98.1 Arthrodesis status; T81.32XA Disruption of internal operation (surgical) wound, not elsewhere classified, initial encounter | CPT/HCPCS: 99024 ==

== ENCOUNTER 2021-10-21 12:11 | Outpatient (CLI) | payer OTHER, SELFPAY ==
--- NOTE | 2021-10-21 13:00 | XR_ITS ---
WS: [id number] Exam: XR KUB [id number] Date/Time of Exam: 10/21/2021 12:24 PM Reason For Exam: BILATERAL RENAL STONES Comparison 04/25/2021. No bowel obstruction or free air. Multiple calcifications superimpose both kidneys apparently represe nting known renal stones. Bilateral nonspecific pelvic calcifications. No sign of organ enlargement. Regional bony structures are intact. XR/XR KUB [id number] IMPRESSION: 1. No acute abdominal process. 2. Multiple calcifications superimpose the kidneys and apparently represent kno wn renal stones. Nonspecific bilateral pelvic calcifications.
[2021-10-21 14:22] LABS: PSA Screen - Urology 1.12 ng/mL (0-4)
== END 2021-10-21 12:12 | disposition home or self-care (01) ==
LOC: RAD 12:13
PROVIDERS: PCP Emergency Medicine Emergency Medical Services; Visit Provider Urology
DX: Z12.5 Encounter for screening for malignant neoplasm of prostate (principal); N20.0 Calculus of kidney; N40.1 Benign prostatic hyperplasia with lower urinary tract symptoms; N52.9 Male erectile dysfunction, unspecified
CPT/HCPCS: 36415; 51741; 51798; 74018; 81003; 99214; G0103

== ENCOUNTER → 2021-12-05 14:24 | Outpatient (BNVA) | payer OTHER, SELFPAY | PROVIDERS: PCP Emergency Medicine Emergency Medical Services; Visit Provider Orthopaedic Surgery | DX: Z47.89 Encounter for other orthopedic aftercare (principal); M25.78 Osteophyte, vertebrae | CPT/HCPCS: 72040; 99024 ==

== ENCOUNTER 2022-05-19 16:36 | Emergency (ER) | payer OTHER, SELFPAY ==
[2022-05-19 17:01] VITALS: BP 116/76; PULSE 100; RESP 16; TEMP 36.6; O2SAT 97
--- NOTE | 2022-05-19 17:12 | XRR_ITS ---
PROCEDURE INFORMATION: Exam: XR Left Hand Exam date and time: 05/19/2022 5:29 PM Age: 61 years old Clinical indication: Injury or trauma; Fall; Sprain or strain; Hand; Left; Additional info: Injury x 1 month TECHNIQUE: Imaging protocol: Radiologic exam of the left hand. Views: 3 or more views. COMPARISON: No relevant prior studies available. FINDINGS: Bones/joints: Normal. Soft tissues: Normal. XR/XR hand LT min 3V* [id number] IMPRESSION: No acute findings.
--- NOTE | 2022-05-19 17:13 | W.ED.EXTPRO ---
HPI - Extremity Problem General: Chief complaint: Extremity Injury, Upper Stated complaint: Left hand injury Time Seen by Provider: 05/19/22 17:11 History of Present Illness: 61-year-old male patient comes in today for complaints of injury to the left hand third MCP joint area. Patient states that 1 month ago he had slipped and fell on the ice striking his hand against the ground. Since then patient has had increased pain and discomfort that has persisted. Patient came in today for evaluation due to feeling a knot along that joint. Cap refill is intact. Range of motion is intact. Patient does report that it seems a little stiff when making a fist. Associated symptoms: Deny chest pain or rash Review of Systems General: Reports: 10 or more systems reviewed and unremarkable except in HPI and below ENMT: Denies: throat pain Card: Denies: chest pain Resp: Denies: dyspnea Musc: Reports: extremity pain and joint pain Skin/Breast: Denies: rash Neuro: Reports: numbness in extremities PFS ED PFSH: Medical History (Updated 05/19/22 @ 17:44 by SISI Coulter) Bilateral renal stones BPH loc w urin obs/LUTS Erectile dysfunction S/P extracorporeal shock wave therapy Ureteral calculus, right Surgical History H/O knee surgery History of shoulder surgery Hx of cataract surgery bilateral Family History Mother , at age 69 Renal failure Father No problems noted. Social History Smoking and tobacco status: current every day smoker Alcohol intake: never Marital status: Current occupational status: retired Physical Exam Const: COMMON NORMALS: alert HENMT: COMMON NORMALS: normocephalic HEAD & SCALP: normocephalic Neck/C-Spine: COMMON NORMALS: full ROM Resp: COMMON NORMALS: normal respiratory effort and clear to auscultation bilaterally AUSCULTATION: clear to auscultation bilaterally Cardio: COMMON NORMALS: regular rate RATE: regular rate Extremity: LEFT UPPER EXTREMITY: Yes hand & digits (Normal range of motion, decreased implementation architect strength, cap refill intact) Left hand and digits: Yes inspection, Yes palpation (Nodule noted to the ulnar side of the third MCP) and Yes ROM Neuro: SENSORIUM/ORIENTATION: Yes alert Skin: COMMON NORMALS: turgor normal GENERAL SKIN EXAM: turgor normal Course Vital Signs: Vital signs: Vital Signs Temperature 97.9 F 05/19/22 17:01 Pulse Rate 100 05/19/22 17:01 Respiratory Rate 16 05/19/22 17:01 Blood Pressure 116/76 05/19/22 17:01 Pulse Oximetry 97 05/19/22 17:01 Oxygen Delivery Me thod 05/19/22 17:01 MDM - Extremity (Nontraumatic) Medical Decision Making 61-year-old male patient comes in today for injury to the left hand 1 month ago. Patient reports continued pain and some decrease in implementation architect strength. On exam patient does have a nodule to the ulnar side of the third MCP joint. Distal cap refill is intact. Sensations are intact. Differential diagnosis includes fracture, sprain, contusion. X-ray noted no acute injury. Patient does have some soft tissue swelling noted to the area where the nodule was felt. Suspect possible tendon rupture or hematoma. Patient does have good range of motion of the hand. Recommend activity as tolerated and follow-up with primary care in 2 weeks for recheck. Patient reported understanding and agreed to plan. Discharge Plan Discharge Patient Disposition: Home Clinical Impression: Other hand sprain and strain Condition: Stable Prescriptions: No Action aspirin [Aspir-81] 81 mg tablet,delayed release (DR/EC) 81 mg PO DAILY loratadine 10 mg tablet 10 mg PO DAILY lisinopril 5 mg tablet 5 mg PO DAILY omeprazole 20 mg capsule,delayed release(DR/EC) 20 mg PO DAILY multivitamin Tablet 1 tab PO DAILY cyclobenzaprine 5 mg tablet 5 mg PO BID PRN (Reason: Pain) memory factor 1 tab PO BID finasteride 5 mg tablet 5 mg PO QDAY Qty: 90 3RF tamsulosin 0.4 mg capsule 0.8 mg PO DAILY Qty: 180 3RF tadalafil 20 mg tablet 20 mg PO DAILY PRN (Reason: sexual activity) Qty: 20 12RF Rx Instructions: administer approximately 30min before sexual activity; NO NITROGLYCERIN! hydroxyzine HCl 25 mg tablet 25 mg PO BEDTIME fluoxetine [Prozac] 20 mg capsule 20 mg PO DAILY naproxen 500 mg tablet 500 mg PO BID PRN (Reason: Pain) Hold Instructions: Resume on 09/12/21. levofloxacin 500 mg tablet 500 mg PO DAILY Qty: 7 0RF (DME) Bone Growth Stimulator E0748 See Rx Instructions .Route .MEDSUPPLY Qty: 1 0RF Rx Instructions: As directed oxycodone 5 mg/5 mL solution 10 mg PO Q4H PRN (Reason: pain) 7 Days Qty: 473 0RF magnesium 250 mg Tablet 250 mg PO DAILY bupropion HCl [Wellbutrin XL] 150 mg Tablet Extended Release 24 Hr 300 mg PO QAM Prostate Health 160-100-100 mg-unit-mcg Tablet 1 tab PO DAILY Discharge Orders: Discharge ED (Routine); Ordered 05/19/22 Ordered By: Geoffrey Andrew Referrals: Rosendo Alaniz, [Primary Care Provider] - Discharge Diet: Usual diet Discharge Activity: Increase activity as tolerated Patient Instructions: Sprain (ED) Activity Restrictions/Additional Instructions: Use warm packs to the area of pain and discomfort. Use acetaminophen and ibuprofen for further pain relief. Activity as tolerated. Follow-up with primary care in 2 to 3 weeks for recheck. No signs of fracture was noted on the exam most likely this is due to a sprain and some tendon injury. It may take up to 3 months for it to fully recover. Return to ED for new concerns or worsening symptoms. Coding Level of Care Code ED Digital Media Sales Consultant for Dale White
== END 2022-05-19 17:59 | disposition home or self-care (01) ==
PROVIDERS: Emergency Provider Nurse Practitioner Family; PCP Emergency Medicine Emergency Medical Services
DX: S63.8X2A Sprain of other part of left wrist and hand, initial encounter (principal); F17.200 Nicotine dependence, unspecified, uncomplicated; W00.0XXA Fall on same level due to ice and snow, initial encounter
CPT/HCPCS: 73130; 99283

== ENCOUNTER → 2022-07-10 12:39 | Outpatient (BNVA) | payer OTHER, SELFPAY | PROVIDERS: PCP Emergency Medicine Emergency Medical Services; Referring Provider Emergency Medicine Emergency Medical Services; Visit Provider Student in an Organized Health Care Education/Training Program | DX: S69.82XA Other specified injuries of left wrist, hand and finger(s), initial encounter (principal); W00.0XXA Fall on same level due to ice and snow, initial encounter | CPT/HCPCS: 99203 ==

== ENCOUNTER → 2023-02-23 09:33 | Outpatient (BNVA) | payer OTHER, SELFPAY | PROVIDERS: PCP Emergency Medicine Emergency Medical Services; Visit Provider Internal Medicine | DX: E21.0 Primary hyperparathyroidism (principal); Z87.81 Personal history of (healed) traumatic fracture; N20.0 Calculus of kidney | CPT/HCPCS: 99204 ==

== ENCOUNTER 2023-03-17 08:18 | Outpatient (CLI) | payer OTHER, SELFPAY ==
--- NOTE | 2023-03-17 08:30 | NM_ITS ---
WS: [id number] EXAMINATION: NM parathyroid [id number] ORDER DATE: 03/17/2023 8:19 AM COMPARISON: None HISTORY: hyperparathyroidism TECHNIQUE: Parathyroid scintigraphy with 18.9 mCi technetium 99 administered. AP and oblique views obtained with and without chin and suprasternal notch markers. Initial and 2 hour delayed imagi ng acquired. FINDINGS: Normal salivary gland uptake. Normal homogeneous thyroid uptake on the initial imaging. Normal thyroi d washout on delayed imaging. No focal areas of radiotracer retention to suggest parathyroid adenoma. IMPRESSION: 1. No evidence of parathyroid adenoma.
== END 2023-03-17 08:19 | disposition home or self-care (01) ==
LOC: RAD 08:18
PROVIDERS: PCP Emergency Medicine Emergency Medical Services; Visit Provider Internal Medicine
DX: E21.0 Primary hyperparathyroidism (principal); Z87.81 Personal history of (healed) traumatic fracture; M81.0 Age-related osteoporosis without current pathological fracture
CPT/HCPCS: 78070; A9500

== ENCOUNTER → 2023-03-18 12:30 | Outpatient (BNVA) | payer OTHER, SELFPAY | PROVIDERS: PCP Emergency Medicine Emergency Medical Services; Visit Provider Internal Medicine | DX: R79.89 Other specified abnormal findings of blood chemistry (principal); E21.0 Primary hyperparathyroidism; N20.0 Calculus of kidney; Z87.81 Personal history of (healed) traumatic fracture | CPT/HCPCS: 99214 ==

== ENCOUNTER 2023-03-24 14:36 | Outpatient (CLI) | payer OTHER, SELFPAY ==
--- NOTE | 2023-03-24 14:30 | XR_ITS ---
WS: [id number] SCREENING DEXA SCAN [facility] CLINICAL INFORMATION: osteoporosis COMPARISON: None. FINDINGS: The L1-L4 bone mineral density measures 1.444 g/cm2. This corresponds to a T score score of 1.9 and Z score of 2.5. Left femoral neck bone mineral density measures 1.096 g/cm2. This corresponds to a T score of 0.0 and Z score of 0.6. Right femoral neck bone mineral density measures 1.123 g/cm2. This corresponds to a T score 0.2of and Z score of 0.8. Mean femoral neck bone mineral density measures 1.110 g/cm2. This corresponds to a T score of 0.1 and Z score of 0.7. IMPRESSION: Normal bone mineralization. Patient's FRAX calculated 10 year probability for major osteoporotic fracture is 7.7% and osteoporoti c hip fracture is 1.1%.
== END 2023-03-24 14:37 | disposition home or self-care (01) ==
LOC: RAD 14:37
PROVIDERS: PCP Emergency Medicine Emergency Medical Services; Visit Provider Internal Medicine
DX: E21.0 Primary hyperparathyroidism (principal); Z87.81 Personal history of (healed) traumatic fracture; M81.0 Age-related osteoporosis without current pathological fracture
CPT/HCPCS: 77080

== ENCOUNTER → 2023-04-27 10:27 | Outpatient (BNVA) | payer OTHER, SELFPAY | PROVIDERS: Visit Provider Internal Medicine | DX: E21.0 Primary hyperparathyroidism (principal); R79.89 Other specified abnormal findings of blood chemistry; N20.0 Calculus of kidney; Z87.81 Personal history of (healed) traumatic fracture | CPT/HCPCS: 36415; 80053; 82306; 82310; 83970; 84439; 84443; 84480; 99214 ==

== ENCOUNTER 2023-04-28 06:00 | Outpatient (RCR) | payer OTHER, SELFPAY | END 2023-05-07 23:59 | disposition home or self-care (01) | LOC: WPT 06:00 | PROVIDERS: PCP Emergency Medicine Emergency Medical Services; Visit Provider Emergency Medicine Emergency Medical Services | DX: R42 Dizziness and giddiness (principal) | CPT/HCPCS: 97110; 97161 ==

== ENCOUNTER → 2023-07-22 09:01 | Outpatient (BNVA) | payer OTHER, SELFPAY | PROVIDERS: PCP Emergency Medicine Emergency Medical Services; Visit Provider Internal Medicine | DX: E21.0 Primary hyperparathyroidism (principal); N20.0 Calculus of kidney; Z87.81 Personal history of (healed) traumatic fracture; R79.89 Other specified abnormal findings of blood chemistry; E55.9 Vitamin D deficiency, unspecified | CPT/HCPCS: 36415; 80053; 82306; 82310; 83970; 84439; 84443; 84480; 99214 ==

== ENCOUNTER → 2023-08-06 10:47 | Outpatient (BNVA) | payer OTHER, SELFPAY | PROVIDERS: PCP Emergency Medicine Emergency Medical Services; Referring Provider Emergency Medicine Emergency Medical Services; Visit Provider Orthopaedic Surgery | DX: M54.2 Cervicalgia (principal); Z98.1 Arthrodesis status | CPT/HCPCS: 99214 ==

== ENCOUNTER 2023-08-11 12:27 | Outpatient (CLI) | payer OTHER, SELFPAY ==
--- NOTE | 2023-08-11 12:00 | MR_ITS ---
WS: [id number] MRI CERVICAL SPINE NONCONTRAST TECHNIQUE: Sagittal T1, T2 and STIR imaging. Axial T2, gradient, and fiesta imaging. CLINICAL INFORMATION: neck pain COMPARISON: MRI 04/09/2021 FINDINGS: Straightening of the normal cervical lordosis. Postoperative changes are new since 2021. ACDF C3-C7. Myelomalacia in the cervical cord at C3-4 appears stable C2-C3: Normal. C3-C4: Moderate facet arthropathy. ACDF. Severe LEFT and moderate RIGHT bony foraminal narrowing. Mod erate facet arthropathy. Mild central canal stenosis with slight indentation on the RIGHT ventral cer vical cord unchanged. Small amount of myelomalacia in the cervical cord at this level unchanged. C4-C5: ACDF. Osteophyte indentation on the RIGHT ventral cervical cord with mild central canal stenos is. Stable since 2021 with flattening of the cervical cord. Moderate RIGHT and mild LEFT bony foramin al narrowing. Moderate facet arthropathy. C5-C6: Postoperative changes ACDF. Osteophyte complex with endplate ridging. Slight indentation on th e RIGHT ventral cervical cord with mild central canal stenosis appears improved compared to previous. Severe LEFT greater than RIGHT bony foraminal narrowing. Moderate facet arthropathy. C6-C7: Postoperative changes ACDF. Severe bilateral bony foraminal narrowing LEFT greater than RIGHT. Spinal canal is patent. C7-T1: Postoperative changes ACDF. Mild bilateral bony foraminal narrowing. Spinal canal is patent. Visualized brain stem structures: Normal. Prevertebral soft tissues: Normal. Small vessel changes in the randy. MR/MR cervical spin wo con* [id number] IMPRESSION: 1. Straightening of the normal cervical lordosis. Postoperative changes are ne w since 2021 with ACDF C3-C7. 2. Osteophytic ridging with mild residual central canal stenosis C3-C4 C4-C5 a nd C5-C6 with slight indentation on the RIGHT ventral cervical cord at these le vels similar to previous. Stable myelomalacia. 3. Multilevel similar moderate to severe bony foraminal narrowing worse at seth ateral C3-4 worse on the LEFT, RIGHT C4-5, bilateral C5-6, bilateral C6-7 worse on the LEFT
== END 2023-08-11 12:28 | disposition home or self-care (01) ==
LOC: RAD 12:27
PROVIDERS: PCP Emergency Medicine Emergency Medical Services; Visit Provider Orthopaedic Surgery
DX: M99.61 Osseous and subluxation stenosis of intervertebral foramina of cervical region (principal); M43.22 Fusion of spine, cervical region; M25.78 Osteophyte, vertebrae; M47.892 Other spondylosis, cervical region; G95.89 Other specified diseases of spinal cord
CPT/HCPCS: 72141

== ENCOUNTER → 2023-08-18 08:51 | Outpatient (BNVA) | payer OTHER, SELFPAY | PROVIDERS: PCP Emergency Medicine Emergency Medical Services; Visit Provider Orthopaedic Surgery | DX: Z98.1 Arthrodesis status (principal); M54.2 Cervicalgia | CPT/HCPCS: 72040; 80053; 81003; 85025; 99214 ==

== ENCOUNTER 2023-08-24 11:09 | Inpatient (IN) | payer OTHER, SELFPAY ==
[2023-08-24] VITALS (32 sets, daily range): BP systolic 142–190; BP diastolic 101–115; PULSE 74–93; RESP 11–24; TEMP 36.1–37; O2SAT 95–100; BMI 23.7
--- NOTE | 2023-08-24 | XR_ITS ---
WS: [id number] C-ARM RADIOGRAPHS CERVICAL SPINE; 3 IMAGES HISTORY: OR PICS COMPARISON: None available. Intraoperative imaging during anterior cervical fusion at multiple contiguous levels throughout the c ervical spine. Interbody spacers are at several levels. Anterior fusion begins at the C3 level. The d istal extent cannot be determined on the imaging submitted. Patient is intubated. XR/XR cervical spine 3V* [id number] IMPRESSION: Intraoperative imaging during anterior cervical fusion at multiple levels.
--- NOTE | 2023-08-24 06:17 | W.PM.OPSUD ---
Surgery/Procedure H&P Update DATE OF PROCEDURE: August 24, 2023 DATE H&P PERFORMED: 08/18/23 H&P UPDATE INFORMATION: I have reviewed H&P completed within last 30 days, I have examined patient prior to procedure and No changes to prior documentation PREOP DIAGNOSIS: Cervical spondylosis with radiculopathy; loose hardware PLANNED PROCEDURE: Operation Date: 08/24/23 07:00 Proposed Procedures p Cervical Posterior Fusion(Not Applicable) - Alex Rosado DO s Hardware Removal Cervical(Not Applicable) - Alex Rosado DO
[2023-08-24] MEDS: sodium chloride 0.9% 1,000 ML 30 ML IV (06:49)
--- NOTE | 2023-08-24 07:05 | ANES.PREANE2 ---
Pre-Anesthetic Assessment Height/Weight: Height 1.8 m Weight 77.111 kg O2 Del Method Room Air 08/24/23 05:56 Preop Diagnosis: Cervical spondylosis with radiculopathy; loose hardware Operation Date: 08/24/23 07:00 Proposed Procedures p Cervical Posterior Fusion(Not Applicable) - Alex oRsado DO s Hardware Removal Cervical(Not Applicable) - Alex Rosado DO Familial anesthetic complications: Agitation Was Beta Paulina taken within 24 hours: N/A Was Clonidine taken within 24 hours: N/A Last intake: Intake Last Liquid Date 08/23/23 Last Liquid Time 18:00 Last Solid Date 08/23/23 Last Solid Time 18:00 Social Tobacco Exam alert, oriented x 3, clear to auscultation bilaterally and regular rate & rhythm Airway Mallampati: Class II Dentition: false CV/HEM Hypertension kidney stones (saw dr. Mac. States he doesn't have hyperPTH) GI Gastroesophageal Reflux Disease Metabolic Hyperlipidemia Anesthetic Plan ASA status: 3 Anesthesia: General Risk of > 500 ml blood loss (7ml/kg in children): Yes, adequate IV access and fluids planned Medications/Allergies Home Medications Medication Instructions Recorded Confirmed Last Taken Type aspirin 81 mg tablet,delayed 81 mg PO DAILY 09/27/19 08/24/23 08/13/23 History release (Aspir-) cyclobenzaprine 5 mg tablet 5 mg PO BID PRN Pain 09/27/19 08/24/23 08/23/23 History lisinopril 5 mg tablet 5 mg PO DAILY 09/27/19 08/24/23 08/23/23 History loratadine 10 mg tablet 10 mg PO DAILY 09/27/19 08/24/23 08/21/23 History omeprazole 20 mg capsule,delayed 20 mg PO DAILY 09/27/19 08/24/23 08/23/23 History release bupropion HCl 150 mg 24 hr tablet, 300 mg PO QAM 10/07/19 08/24/23 08/23/23 History extended release (Wellbutrin XL) hydroxyzine HCl 25 mg tablet 25 mg PO BEDTIME 10/31/20 08/24/23 08/20/23 History Bone Growth Stimulator E0748 #1 ea 08/12/21 08/24/23 Unknown Rx finasteride 5 mg tablet 5 mg PO QDAY #90 tabs 10/21/21 08/24/23 08/23/23 Rx tadalafil 20 mg tablet 20 mg PO DAILY PRN sexual activity 10/21/21 08/24/23 Unknown Rx #20 tabs fluoxetine 20 mg capsule (Prozac) 40 mg PO DAILY 04/27/23 08/24/23 08/23/23 History oxycodone-acetaminophen 10 mg-325 1 tab PO Q6H PRN Pain 04/27/23 08/24/23 08/24/23 History mg tablet clofibrate 500 mg capsule 500 mg PO DAILY 08/18/23 08/24/23 08/23/23 History Allergies Allergy/AdvReac Type Severity Reaction Status Date / Time amoxicillin Allergy ALGY-Rash Verified 08/24/23 05:51 Cephalosporins Allergy Unknown Verified 08/24/23 05:51 hydrochlorothiazide Allergy Unknown Verified 08/24/23 05:51 nicotine Allergy unknown Verified 08/24/23 05:51 Penicillins Allergy ALGY-Rash Verified 08/24/23 05:51 pregabalin [From Lyrica] Allergy Unknown Verified 08/24/23 05:51 simvastatin Allergy Unknown Verified 08/24/23 05:51 Current Medications Generic Name Dose Route Start Last Admin Trade Name Freq PRN Reason Stop Dose Admin Sodium Chloride 1,000 mls @ 30 mls/hr 08/24/23 06:45 08/24/23 06:49 Sodium Chloride 0.9% IV 08/25/23 06:44 30 mls/hr .Q24H LUZ MARIA Administration PFSH Anesthesia Medical History Erectile dysfunction BPH loc w urin obs/LUTS S/P extracorporeal shock wave therapy Bilateral renal stones Ureteral calculus, right Surgical History H/O knee surgery Hx of cataract surgery bilateral History of shoulder surgery Family History Mother , at age 69 Renal failure Father No problems noted. Social History Smoking and tobacco/nicotine status: former use of tobacco/nicotine Alcohol intake: never Marital status: Current occupational status: retired Data Anesthesia Cardiac Studies: No Data to Display
[2023-08-24] MEDS: clindamycin 600 MG/50 ML PREMIX 100 MG IV (07:07)
[2023-08-24] MEDS: vancomycin 1,000 MG SDV 1000 MG XX (09:46)
[2023-08-24] MEDS: lidocaine-epi 1% PF 1:200,000 30 mL SDV INJECTION (10:30)
--- NOTE | 2023-08-24 11:22 | P.OP_ITS ---
Operative Report Date of procedure: August 24, 2023 Pre-op diagnosis: Nonunion cervical spine Cervical spondylosis with myelopathy Post-op diagnosis: same Procedure done: 1. Removal of anterior deep hardware from cervical spine through separate incision. 2. C2-T2 posterior spine fusion 3. C2- T2 posterior instrumentation 4. C3/4 laminectomy with partial facetectomy 5. C4-5 laminectomy with partial facetectomy 6. C5-6 laminectomy with partial facetectomy 7. C6-7 laminectomy with partial facetectomy 8. Use of computer navigation stereotactic for spine. 9. Use of autograft 10. Use of allograft Surgeon: Alex Rosado DO Estimated blood loss (mL): 200 Procedure: 1. Removal of anterior deep hardware from cervical spine through separate incision. 2. C2-T2 posterior spine fusion 3. C2- T2 posterior instrumentation 4. C3/4 laminectomy with partial facetectomy 5. C4-5 laminectomy with partial facetectomy 6. C5-6 laminectomy with partial facetectomy 7. C6-7 laminectomy with partial facetectomy 8. Use of computer navigation stereotactic for spine. 9. Use of autograft 10. Use of allograft The patient was taken to the operating room, where he underwent general endotracheal anesthesia without complications. He was then positioned supine on the operating table, and all areas of impingement were well padded. The arms were carefully padded and tucked at his sides. A roll was placed between the shoulder blades.. An x-ray was done to determine the appropriate level for the skin incision. The entire neck was then sterilely prepped and draped in the usual fashion. Neuromonitoring was attached prior to prepping. A transverse skin incision was made and carried down to the platysma muscle. This was then split in line with its fibers. Blunt dissection was carried down medial to the carotid sheath and lateral to the trachea and esophagus until the anterior cervical spine was visualized. The prominent screws in the C7 vertebral body were identified and removed. Wound was then irrigated and closed in layered fashion with 0 Vicryl and 2-0 Vicryl and Monocryl suture. Sterile dressings were applied. Patient was then placed in the prone position. All areas impingement well- padded. Patient was prepped draped normal sterile fashion. Skin incision made midline from C2 down to T2. Subperiosteal dissection was made out to the lateral masses from C2 down to C7. And up to the transverse processes of T1 and T2. Once the exposure was complete Attention was then brought to the placement of the fiducial for the computer navigation. This was done using a clamp onto the T3 spinous process. The clamp was placed followed by placing the fiducial followed by bringing the C-arm. C- arm was brought in on the patient. The information from serum was then used to place the screws navigated. Next tension was brought to placing the CT to prior screws. This was done by using the computer navigated drill placing it up in through the pars. Avoiding the vertebral artery. This was done incrementally with a drill. Up to 18 mm. This was done bilaterally. And then the 18 mm screw was used. Next the lateral mass screws were placed. This was done by drilling from the center of the lateral mass out to the upper corner into the lateral mass this was done drilling then followed by the pedicle feeler. Followed by placement of screw. The screws were all size 14. This was done at C3 bilaterally, C4 bilaterally, C5 bilaterally, and C6 bilaterally. Attention was brought to placing the thoracic pedicle screws. This was done by drilling over the apex of the transverse process. Followed by using the computer navigated all. Followed by using the pedicle feeler followed by placement of screw. This was done at T1 and T2 bilaterally these are all size 28 screws. Next tension was brought to placing the rods. Rods were placed from C2 down through all the screws at C3 C4-C5-C6 T1 and T2. This was done bilaterally. Caps were then torqued and the place. Locked down. This was done bilaterally. She was brought to performing the laminectomies and partial facetectomies. Attention was first brought to the C5 lamina. High-speed bur was used to cut through the lamina bilaterally then this was done at C4 bilaterally. And then C3 bilaterally. The lamina were then pulled up after cutting the ligamentum flavum distally. And then the lamina were taken off as a whole at C5 C4 and C3. And then the ligamentum flavum was cut superiorly. The 3 laminas were then used for bone graft. Next attention was brought to the C3-4 facet joint. This was taken down medially bilaterally using Kerrison rongeur. This process was repeated at C4-5 C5-6 and C6-7 bilaterally. Completing the laminectomies and partial facetectomies at C3-4, C4-5, C5-6. The dura floated back and I felt that C6 need to be taken down. This point a laminectomy was performed at C6 as well. This was done by using the high-speed bur cutting the lamina bilaterally. And then taking down the medial aspect of the facet joint at C6-7 bilaterally. Completing the 4 level laminectomy with partial facetectomies. Next tension was brought to decorticating the lateral gutter with a high-speed bur as well as the lamina of C7-T1 and T2. OsteoMed bone graft was packed in the lateral gutters as well as around the thoracic lamina and lateral gutters. The allograft was packed on top of this. A deep drain was placed vancomycin powder was placed and the wound was closed in a layered fashion with 0 Vicryl 2- 0 Vicryl and Monocryl suture. Sterile dressings were applied and patient was transferred back to the ICU in stable condition.
[2023-08-24] MEDS: labetalol 5 mg/mL SDV 20mL 10 MG IVP (11:52)
[2023-08-24] MEDS: hyDRALAzine 20 mg/mL INJ 1 mL 5 MG IVP (12:27)
--- NOTE | 2023-08-24 12:55 | ANE.PACU2 ---
Inpatient post-anesthesia follow up: Airway intact: Yes Vital signs: Temperature 97.5 F Pulse Rate 76 Respiratory Rate 14 Blood Pressure 170/103 Pulse Oximetry 96 Oxygen Delivery Me thod Room Air Oxygen Flow Rate 6 Fraction of Inspir ed Oxygen Hydration adequate: Yes Nausea and vomiting: No Pain level: 1 Mental status: Baseline
[2023-08-24] MEDS: lisinopril 5 mg Tablet PO (14:37)
[2023-08-24] MEDS: oxyCODONE-APAP 10-325 mg Tablet PO ×2 (14:37→20:57)
[2023-08-24] MEDS: morphine 4 mg/mL SDV 1 mL 2 MG IVP ×4 (14:38→23:17)
[2023-08-24] MEDS: cyclobenzaprine 10 mg Tablet 5 MG PO (14:38)
[2023-08-24] MEDS: acetaminophen 325 mg Tablet 650 MG PO (15:31)
[2023-08-24] MEDS: ketorolac 30 mg/mL INJ IVP ×2 (15:31→21:52)
[2023-08-24] MEDS: docusate sodium 100 mg Capsule PO (17:00)
[2023-08-24] MEDS: lactated ringers 1,000 ML 90 ML IV (17:04)
[2023-08-24] MEDS: hyDROXYzine 25 mg Capsule PO (20:57)
[2023-08-25] VITALS (9 sets, daily range): BP systolic 132–152; BP diastolic 80–89; PULSE 96–98; RESP 16–20; TEMP 36.7–37; O2SAT 93–96
[2023-08-25] MEDS: oxyCODONE-APAP 10-325 mg Tablet PO ×3 (01:13→10:15)
[2023-08-25] MEDS: cyclobenzaprine 10 mg Tablet 5 MG PO (02:52)
[2023-08-25] MEDS: morphine 4 mg/mL SDV 1 mL 2 MG IVP ×2 (02:53→06:00)
[2023-08-25] MEDS: lactated ringers 1,000 ML 90 ML IV (03:03)
[2023-08-25] MEDS: buPROPion XL (24 HR) 150 mg Tablet 300 MG PO (05:04)
--- NOTE | 2023-08-25 07:44 | PM.DCS ---
Discharge Providers Date of Admission: 08/24/23 11:09 Date of Discharge: August 25, 2023 Attending Provider at Admission: Alex Rosado DO Attending Provider at Discharge: Alex Rosado DO Primary Care Provider: Rosendo Alaniz DO Reason for Visit Reason for Visit: M48.02 Physical Exam Narrative: Patient doing well eating sitting up in bed. Says pain is controlled. Urinary Catheter Management: Shearer: Cath Placed During This Visit: yes, but has since been removed by the nurse Urinary Catheter Date of Insertion: 08/24/23 Urinary Catheter Time of Insertion: 07:25 Date Urinary Catheter Removed: 08/24/23 Time Urinary Catheter Discontinued: 11:09 Discharge Data Studies Completed and Pending Pending at discharge Category Date Time Status C-arm Fluoroscopy 57305 Routine Exams 08/24/23 05:47 Taken XR cervical spine 3V* [id number] Routine Exams 08/24/23 00:00 Taken Vitals Last Vital Signs Temp 98.6 F 08/25/23 04:54 Pulse 96 08/25/23 04:54 Resp 20 H 08/25/23 06:00 BP 132/80 08/25/23 04:54 Pulse Ox 95 08/25/23 04:54 O2 Del Method Room Air 08/25/23 00:00 O2 Flow Rate 6 08/24/23 12:23 Discharge Plan Discharge Prescriptions: New oxycodone-acetaminophen 10-325 mg tablet 1 tab PO Q4H PRN (Reason: pain) 7 Days Qty: 40 0RF Continued aspirin [Aspir-81] 81 mg tablet,delayed release (DR/EC) 81 mg PO DAILY loratadine 10 mg tablet 10 mg PO DAILY lisinopril 5 mg tablet 5 mg PO DAILY omeprazole 20 mg capsule,delayed release(DR/EC) 20 mg PO DAILY cyclobenzaprine 5 mg tablet 5 mg PO BID PRN (Reason: Pain) finasteride 5 mg tablet 5 mg PO QDAY Qty: 90 3RF tadalafil 20 mg tablet 20 mg PO DAILY PRN (Reason: sexual activity) Qty: 20 12RF Rx Instructions: administer approximately 30min before sexual activity; NO NITROGLYCERIN! hydroxyzine HCl 25 mg tablet 25 mg PO BEDTIME fluoxetine [Prozac] 20 mg capsule 40 mg PO DAILY clofibrate 500 mg capsule 500 mg PO DAILY (DME) Bone Growth Stimulator E0748 See Rx Instructions .Route .MEDSUPPLY Qty: 1 0RF Rx Instructions: As directed bupropion HCl [Wellbutrin XL] 150 mg Tablet Extended Release 24 Hr 300 mg PO QAM Discontinued oxycodone-acetaminophen 10-325 mg tablet 1 tab PO Q6H PRN (Reason: Pain) Discharge Orders: Discharge Order (Routine); Ordered 08/25/23 Ordered By: Alex Rosado Discharge Diet: Advance as tolerated Discharge Activity: Limit activity as instructed Patient Instructions: Opioid Safety Activity Restrictions/Additional Instructions: Thank you for choosing [facility] for your care! The following is a list of instructions, from your provider, to follow upon your discharge to ensure you have the optimal recovery from your recent injury or surgery. Anterior Cervical Discectomy and Fusion: What to Expect at Home Your Recovery Follow-up care is a crowder part of your treatment and safety. Be sure to make and go to all appointments, and call your doctor if you are having problems. If you do not already have a follow-up appointment made, call office in the next 1-3 days to make follow up appointment for 1 weeks at [phone]. It is also a good idea to know your test results and keep a list of the medicines you take. You can expect your neck to feel stiff or sore after surgery. This should improve in the weeks after surgery. But it may take 4 to 6 months for you to get better completely. You may have trouble sitting or standing in one position for very long and may need pain medicine in the weeks after your surgery. It may take 4 to 6 weeks to get back to your usual activities, but it may depend on what kind of surgery you had. Your throat will feel sore and it may be difficult to swallow for the first 3 days after your surgery. As long as you can get liquids down without difficulty, this should slowly improve, otherwise call our office or seek medical attention if it becomes increasingly difficult to get anything down including liquids. Avoid hot liquids for first 3-5 days. Soothing foods/liquids such as jello, pudding, and luke warm soups are recommended until swallowing improves. Staying elevated will also help, it's advised you keep propped up at while sleeping to help reduce the swelling. You may use an ice pack directly on your incision or around it on the front of your neck, using a cloth to protect your skin; and a heating pad to the back of your neck as needed. Do not use over the counter anti-inflammatory medications (Ibuprofen, Motrin, Aleve, Advil, etc) Taking these meds after having a fusion can delay fusion rates, we recommend you avoid them for the first 3 months after your surgery[address] Dr. Rosado may advise you to work with a physical therapist to strengthen the muscles around your neck and back - this will be discussed at your follow - up appointments. The pain or numbness you were having in your arms before surgery should get better or go away completely. This care sheet gives you a general idea about how long it will take for you to recover. But each person recovers at a different pace. Follow the steps below to get better as quickly as possible. How can you care for yourself at home? Activity ? Rest when you feel tired. Getting enough sleep will help you recover. ? Try to walk each day. Start by walking a little more than you did the day before. Bit by bit, increase the amount you walk. Walking boosts blood flow and helps prevent pneumonia and constipation. Walking may also decrease your muscle soreness after surgery. ? No lifting anything that is more that 5 pounds. This may include heavy grocery bags and milk containers, a heavy briefcase or backpack, cat litter or dog food bags, a child, or a vacuum shafting cleaner. ? Avoid strenuous activities, such as bicycle riding, jogging, weightlifting, or aerobic exercise, until your doctor says it is okay. ? Do not drive until your follow-up visit after your surgery, or until your doctor says it isokay. ? Avoid taking long car trips for 2 to 4 weeks after surgery. Your neck may become tired and painful from sitting too long in one position. ? You will probably need to take 4 to 6 weeks off from work. It depends on the type of work you do and how you feel. ? You may have sex as soon as you feel able, but avoid positions that put stress on your neck or cause pain. Diet ? You can eat your normal diet. If your stomach is upset, try bland, low-fat foods like plain rice, broiled chicken, toast, and yogurt ? Drink plenty of fluids. If you have kidney, heart, or liver disease and have to limit fluids, talk with your doctor before you increase the amount of fluids you drink. ? You may notice that your bowel movements are not regular right after your surgery. This is common. Try to avoid constipation and straining with bowel movements. You may want to take a fiber supplement every day. If you have not had a bowel movement after a couple of days, ask your doctor about taking a mild laxative. Medicines ? Take pain medicines exactly as directed. 1. If Dr. Rosado gave you a prescription medicine for pain, take lt as prescribed. 2. Do not take two or more pain medicines at the same time unless the doctor told you to. Many pain medicines have acetaminophen, which is Tylenol. Too much acetaminophen {Tylenol) can be harmful. 3. If you think your pain pill is making you sick to your stomach: 4. Take your pills after meals (unless your doctor has told you not to). 5. Ask your Dr. for a different pain pill. Incisioncare ? Remove your dressing 48hours after your surgery. Ok to shower and get the incision wet. Do not overtly wash your incision. When done, pad dry, leave open to air thereafter. Avoid creams and ointments directly on your incision. ? Your sutures in the incision will dissolve and fall out on their own. ? Keep the area clean and dry. You may cover it with a gauze bandage if it weeps or rubs against clothing; if you choose to do this, change the dressing everyday. Other instructions ? Use a heating pad, hot water bottle, or gentle massage on your back to reduce stiffness. Avoid putting heat on your incision When should you call for help? ? Call 911 anytime you think you may need emergency care. For example, call if: ? You pass out (lose consciousness). ? You have sudden chest pain and shortness of breath, or you cough upblood. ? You cannot swallow. ? You have severe pain in your neck or back. ? Call your Dr. or seek immediate medical care if: ? You have pain that does not get better after you take pain pills. ? You have loose stitches, or your incision comes open. ? You have blood or fluid draining from the incision. ? You have signs of infection, such as: 1. Increased pain, swelling, warmth, or redness. 2. Red streaks leading from the site. 3. Pus draining from the site. 4. Swollen lymph nodes in your neck or armpits. 5. A fever. ? You have severe pain in your arms. ? You have new or increased weakness or numbness in your arms. ? Watch closely for any changes in your health, and be sure to contact your doctor if: ? You do not have a bowel movement after taking a laxative. Discharge Attestations Time Spent in Discharge Care*: less than 30 min Quality Metrics Clinical Quality Measures [ No reported AMI, CVA or VTE this stay] Coding Level of Care Code Acute Code for Chg Fwaraceli
[2023-08-25] MEDS: pantoprazole DR 40 mg Tablet PO (08:35)
[2023-08-25] MEDS: fluoxetine 20 mg Capsule 40 MG PO (08:35)
[2023-08-25] MEDS: lisinopril 5 mg Tablet PO (08:36)
[2023-08-25] MEDS: loratadine 10 mg Tablet PO (08:36)
[2023-08-25] MEDS: ketorolac 30 mg/mL INJ IVP (08:36)
[2023-08-25] MEDS: finasteride 5 mg Tablet PO (08:36)
[2023-08-25] MEDS: docusate sodium 100 mg Capsule PO (08:36)
--- NOTE | 2023-08-25 09:40 | PC.CHAP ---
Pastoral Care Encounter/Spiritual Assessment Type of Contact [] Declined director correctional agency visit [] Patient/Family/Request visit [] Outpatient visit [] Follow-up visit [] Physician referral [] Code/Alert [x] Routine visit [] Staff referral [] Actively dying [] Patient sleeping [] Family support [] [] Out of room [] Palliative care [] [] Receiving care in room [] Pre-surgical visit [] Trauma [] Long length of stay [] ICU visit [] Other: Relational/Emotional Strength [x] Patient feels connected with others/family/visitors/staff [] Distress [] Loneliness/isolation [] Abandonment Spirituality of Patient [x] Person of Makenna [] Attends Judaism of their Makenna [x] Believes in Prayer [] Reads Bible or Mandaen materials [] There are Spiritual issues to be addressed Bath Attendant Interventions [x] Prayer [x] Active listening [] Non-anxious presence [x] Spiritual/emotional support [] Crisis/trauma care [] Spiritual counseling [] Bereavement support [] Provided bereavement packet [] Provided Bible/devotional materials [] Provided toy/stuffed animal, coloring book to patient or family member [] Provided Communion [] Anointing/[place] [] Salvation [x] Completed spiritual assessment [] Other: Impact on Illness or Injury [] Angry [] Fearful [] Anxious [] Often cries [] Exhaustion [] Unable to work [] Unable to attend mormonism [] Unable to walk/stand [] Unable to read [] Unable to drive [] Unable to eat/drink [] Unable to sleep [] Unable to be with family [] Patient intubated [] Other: Summary Time spent with patient 5 min
== END 2023-08-25 11:05 | disposition home or self-care (01) | DRG 460 ==
LOC: MEDSURG 11:22
PROVIDERS: Admitting Provider Orthopaedic Surgery; PCP Emergency Medicine Emergency Medical Services; Visit Provider Orthopaedic Surgery
PROC: 0RG6071 Fusion of Thoracic Vertebral Joint with Autologous Tissue Substitute, Posterior Approach, Posterior Column, Open Approach (ICD-10-PCS; CPT 22600; principal; 2023-08-24 07:00)
PROC: 0RG6071 Fusion of Thoracic Vertebral Joint with Autologous Tissue Substitute, Posterior Approach, Posterior Column, Open Approach (ICD-10-PCS; 2023-08-24 07:00)
DX: M47.22 Other spondylosis with radiculopathy, cervical region (principal); M96.0 Pseudarthrosis after fusion or arthrodesis; T84.226A Displacement of internal fixation device of vertebrae, initial encounter; M48.02 Spinal stenosis, cervical region; Y79.8 Miscellaneous orthopedic devices associated with adverse incidents, not elsewhere classified; N52.9 Male erectile dysfunction, unspecified; N40.1 Benign prostatic hyperplasia with lower urinary tract symptoms; Z79.82 Long term (current) use of aspirin; Z87.442 Personal history of urinary calculi; Z87.891 Personal history of nicotine dependence
CPT/HCPCS: 51702; 72040; 76000; 97110; 97161; C1713; J0131; J0330; J0360; J1100; J1170; J1885; J2250; J2270; J2371; J2405; J2704; J3010; J3370; J3490; J7030; J7120; P9045

== ENCOUNTER → 2023-09-01 14:58 | Outpatient (BNVA) | payer OTHER, SELFPAY | PROVIDERS: PCP Emergency Medicine Emergency Medical Services; Visit Provider Orthopaedic Surgery | DX: Z98.1 Arthrodesis status (principal) | CPT/HCPCS: 99024 ==

== ENCOUNTER → 2023-09-08 12:51 | Outpatient (BNVA) | payer OTHER, SELFPAY | PROVIDERS: PCP Emergency Medicine Emergency Medical Services; Visit Provider Orthopaedic Surgery | DX: Z98.1 Arthrodesis status (principal) | CPT/HCPCS: 99024 ==

== ENCOUNTER 2023-09-17 16:42 | Inpatient (IN) | payer OTHER, MEDICARE, SELFPAY ==
--- NOTE | 2023-09-17 16:53 | ED_ITS ---
HPI - Neck Pain/Injury 2 General: Chief Complaint: Neck Pain/Injury Stated Complaint: neck pain Time Seen by Provider: 09/17/23 16:50 Source: patient Mode of arrival: ambulatory History of Present Illness: 63 yo male presents emergency room via E [facility]. Patient had surgery on his neck with a significant revision done approximately [address] Rosado. 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 There is removal of anterior hardware and then a C2-T2 posterior fusion with laminectomy at C3- C7. Allograft was used for fusion. Patient had been experiencing some drainage from the wound was mostly serosanguineous from his description. He did not have any fever sweats or chills. The drainage was from the inferior aspect of the incision. He was walking and missed stepped and had a near fall, kind of caught himself but felt a popping sensation in his neck he went to the doctor's office and the lower portion of the wound had significantly dehisced exposing subcutaneous tissue. On arrival here he is Styrofoam blocks in place and a bandage with Steri-Strips on the wound. There is no active drainage. MD complaint: neck pain Place: home Relieving factors: rest supine and remaining still Exacerbating factors: movement of neck Context: near fall Treatments prior to arrival: cervical collar Review of Systems 2 Const: Denies: fever(s) or chills Card: Denies: chest pain Resp: Denies: dyspnea GI: Denies: abdominal pain : Denies: dysuria, urinary frequency or urinary urgency Musc: Reports: neck pain; Denies: back pain Skin/Breast: Denies: rash PFSH ED 2 PFSH: Medical History Erectile dysfunction BPH loc w urin obs/LUTS S/P extracorporeal shock wave therapy Bilateral renal stones Ureteral calculus, right Surgical History H/O knee surgery Hx of cataract surgery bilateral History of shoulder surgery Family History Mother , at age 69 Renal failure Father No problems noted. Social History Smoking and tobacco/nicotine status: current every day tobacco/nicotine user Alcohol intake: never Marital status: Current occupational status: retired Physical Exam 2 Const: GENERAL APPEARANCE: cooperative and comfortable O RIENTATION/CONSCIOUSNESS: Yes awake, Yes oriented to person, Yes oriented to place and Yes oriented to time HENMT: COMMON NORMALS: normocephalic, atraumatic and hearing grossly normal bilaterally HEAD & SCALP: normocephalic and atraumatic Neck/C-Spine: OTHER: Wound dehisced approximately 6 inches in length bone visualized at the base wound not probed in the emergency room. There does not appear to be any infection no purulent drainage bandage when patient arrived had serosanguineous fluid on it. There is no induration inflammation purulent drainage is no apparent abscess noted. Resp: COMMON NORMALS: normal respiratory effort, No retractions, No use of accessory muscles and clear to auscultation bilaterally AUSCULTATION: clear to auscultation bilaterally Cardio: COMMON NORMALS: regular rate, regular rhythm and No murmurs present (Cardio) RATE: regular rate RHYTHM: regular rhythm GI: COMMON NORMALS: Soft to palpation and No hepatosplenomegaly present A USCULTATION: Yes normoactive bowel sounds PALPATION: Yes Soft to palpation, No Tenderness to palpation present (GI), No Guarding due to palpation present (GI) and Yes No hepatosplenomegaly present Extremity: COMMON NORMALS: normal to inspection, capillary refill normal, no clubbing, cyanosis or edema, no calf tenderness and no pedal edema Neuro: SENSORIUM/ORIENTATION: Yes oriented to person, Yes oriented to place and Yes oriented to time Skin: COMMON NORMALS: no rashes or lesions noted GENERAL SKIN EXAM: no rashes or lesions noted Course 2 Vital Signs: Vital signs: Vital Signs Temperature 98.1 F 09/19/23 13:55 Pulse Rate 92 09/19/23 13:55 Respiratory Rate 16 09/19/23 13:55 Blood Pressure 137/80 09/19/23 13:55 Pulse Oximetry 95 09/19/23 13:55 Oxygen Delivery Me thod Room Air 09/19/23 07:44 Oxygen Flow Rate 8 09/18/23 08:43 MDM - Neck Pain/Injury Medical Decision Making Significant dehiscence of wound with exposure of underlying bone. Appears to have exposed allograft. I did not probe the wound. Wound was packed with saline soaked gauze. Wound was then covered with foam tape to try to keep from extending dehiscence of wound. Discussed Dr. Rosado admit the patient to him. He plans to take patient to the OR to washout and repair tomorrow. Labs reviewed patient does have some mild anemia sed rate 26, CRP 9. Patient discharged on IV vancomycin prophylactically. Medical Records I reviewed the patient's medical records. Lab Data I reviewed the patient's lab results. 09/17/23 17:39 09/17/23 17:39 Radiology Impressions Chest X-Ray 09/17/23 17:18 IMPRESSION: No acute findings. Laboratory Results WBC 8.23 10^3/uL (3.29-11.43) 09/17/23 17:39 RBC 3.54 10^6/uL (3.85-5.65) L 09/17/23 17:39 Hgb 10.50 g/dL (11.27-16.99) L 09/17/23 17:39 Hct 33.5 % (37-53) L 09/17/23 17:39 MCV 94.6 fl (82-101) 09/17/23 17:39 MCH 29.7 pg (27-33) 09/17/23 17:39 MCHC 31.3 g/dL (30-55) 09/17/23 17:39 RDW 13.9 % (12.1-15.1) 09/17/23 17:39 Plt Count 475 10^3/cmm (157-399) H 09/17/23 17:39 MPV 8.8 fL (7.4-10.4) 09/17/23 17:39 Neut % (Auto) 61.9 % 09/17/23 17:39 Lymph % (Auto) 27.0 % 09/17/23 17:39 [place] % (Auto) 8.7 % 09/17/23 17:39 Eos % (Auto) 1.6 % 09/17/23 17:39 Baso % (Auto) 0.6 % 09/17/23 17:39 Neut # (Auto) 5.09 10^3/uL (1.8-7.7) 09/17/23 17:39 Lymph # (Auto) 2.2 10^3/uL (0.8-4.8) 09/17/23 17:39 [place] # (Auto) 0.7 10^3/uL (0.2-0.9) 09/17/23 17:39 Eos # (Auto) 0.1 10^3/uL (0.0-0.8) 09/17/23 17:39 Baso # (Auto) 0.1 10^3/uL (0.0-0.1) 09/17/23 17:39 Nucleated RBC % (auto) 0 % 09/17/23 17:39 Nucleated RBCs # 0.0 /100WBC 09/17/23 17:39 ESR 26 mm/hr (0-10) H 09/17/23 17:39 Sodium 141 mmol/L (136-145) 09/17/23 17:39 Potassium 4.4 mmol/L (3.5-5.1) 09/17/23 17:39 Chloride 104 mmol/L (98-107) 09/17/23 17:39 Carbon Dioxide 28 mmol/L (22-29) 09/17/23 17:39 Anion Gap 13.4 (5-19) 09/17/23 17:39 BUN 14 mg/dL (8-23) 09/17/23 17:39 Creatinine 1.2 mg/dL (0.7-1.2) 09/17/23 17:39 GFR Calculation 61.1 mL/min (90-130) L 09/17/23 17:39 Glucose 89 mg/dL (65-115) 09/17/23 17:39 Calculated Osmolality 292 mOsm/kg (285-295) 09/17/23 17:39 Calcium 10.1 mg/dL (8.5-10.5) 09/17/23 17:39 Total Bilirubin 0.2 mg/dL (0.15-1.2) 09/17/23 17:39 AST 12 U/L (0-40) 09/17/23 17:39 ALT 10 U/L (0-41) 09/17/23 17:39 Alkaline Phosphatase 109 U/L (40-130) 09/17/23 17:39 C-Reactive Protein 9.0 mg/L (0.0-4.9) H 09/17/23 17:39 Total Protein 7.1 g/dL (6.6-8.7) 09/17/23 17:39 Albumin 4.0 g/dL (3.5-5.2) 09/17/23 17:39 Globulin 3.1 g/dL (1.3-4.6) 09/17/23 17:39 No radiology studies performed this visit Discharge Plan Discharge Patient Disposition: Admitted As Inpatient Admit Provider: Alex Rosado Clinical Impression: Dehiscence of surgical wound, Status post cervical spinal fusion Condition: Stable Discharge Diet: Advance as tolerated Discharge Activity: Limit activity as instructed Coding Level of Care Code ED [employer] Assembler for Dale White
[2023-09-17 16:55] VITALS: BP 130/89; PULSE 100; RESP 16; TEMP 36.8; O2SAT 99
[2023-09-17] MEDS: ketorolac 30 mg/mL INJ IVP (17:13)
[2023-09-17] MEDS: orphenadrine 30 mg/mL Inj 2 mL 60 MG IV (17:14)
[2023-09-17] MEDS: morphine 4 mg/mL SDV 1 mL IVP ×2 (17:14→21:17)
--- NOTE | 2023-09-17 17:18 | ECG_ITS ---
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 Measurements Intervals [place] Rate: 88 P: 75 IA: 155 QRS: 66 QRSD: 94 T: 72 QT: 370 QTc: 448 Interpretive Statements SINUS RHYTHM Compared to ECG 08/20/2016 05:12:27 No significant changes Electronically Signed On 09-17-2023 23:25:33 CDT by Edmund Hassan M.D. [id number]
--- NOTE | 2023-09-17 17:18 | XRR_ITS ---
PROCEDURE INFORMATION: Exam: XR Chest Exam date and time: 09/17/2023 5:41 PM Age: 63 years old Clinical indication: Injury or trauma; Other: Tore stitches on neck/skull open; Other: Pain; Prior surgery; Surgery date: <1 month; Surgery type: C-spine; Additional info: Dyspnea/cough TECHNIQUE: Imaging protocol: Radiologic exam of the chest. Views: 1 view. COMPARISON: CR XR chest 1V portable [id number] 08/24/2021 3:14 PM FINDINGS: Lungs: Unremarkable. No consolidation. Pleural spaces: Unremarkable. No pleural effusion. No pneumothorax. Heart/Mediastinum: Unremarkable. No cardiomegaly. Bones/joints: Unremarkable. XR/XR chest 1V portable [id number] IMPRESSION: No acute findings.
[2023-09-17] MEDS: vancomycin 1,000 MG in sodium chloride 0.9% 250 ML 250 MG IV (17:32)
[2023-09-17 17:34] VITALS: BP 136/93; PULSE 96; RESP 18; O2SAT 96
[2023-09-17 17:58] LABS: Basophils # 0.1 10^3/uL (0.0-0.1); Basophils % 0.6 %; Eosinophils # 0.1 10^3/uL (0.0-0.8); Eosinophils % 1.6 %; Hematocrit 33.5 % (37-53); Lymphocytes # 2.2 10^3/uL (0.8-4.8); Mean Corpuscular HGB Conc 31.3 g/dL (30-55); Mean Corpuscular Hemoglobin 29.7 pg (27-33); Mean Corpuscular Volume 94.6 fl (82-101); Mean Platelet Volume 8.8 fL (7.4-10.4); Monocytes # 0.7 10^3/uL (0.2-0.9); Monocytes % 8.7 %; Neutrophils # 5.09 10^3/uL (1.8-7.7); Neutrophils % 61.9 %; Nucleated Red Blood Cells % 0 %; Platelet Count 475 10^3/cmm (157-399); Red Blood Count 3.54 10^6/uL (3.85-5.65); Red Cell Distribution Width 13.9 % (12.1-15.1); White Blood Count 8.23 10^3/uL (3.29-11.43)
[2023-09-17 18:03] LABS: Erythrocyte Sedimentation Rate 26 mm/hr (0-10)
[2023-09-17 18:05] VITALS: BP 139/89; PULSE 92; RESP 16; O2SAT 98
--- NOTE | 2023-09-17 18:08 | PC.NURSE ---
ASSISTED PHYSICIAN WITH PACKING OF SURGICAL WOUND. INCISION SITE GAPING, BONE VISIBLE. INCISION SITE PACKED WITH 4X4 GAUZE MOISTENED WITH STERILE WATER, COVERED WITH 1 ABD PAD, AND SECURED WITH FOAM TAPE. PATIENT C-COLLAR REAPPLIED. PATIENT TOLERATED PROCEDURE WELL.
[2023-09-17 18:26] VITALS: BMI 22.2
[2023-09-17 18:26] LABS: Alanine Aminotransferase 10 U/L (0-41); Alkaline Phosphatase 109 U/L (40-130); Anion Gap 13.4 (5-19); Aspartate Amino Transferase 12 U/L (0-40); Blood Urea Nitrogen 14 mg/dL (8-23); Calcium 10.1 mg/dL (8.5-10.5); Carbon Dioxide 28 mmol/L (22-29); Chloride 104 mmol/L (98-107); Globulin 3.1 g/dL (1.3-4.6); Glomerular Filtration Rate 61.1 mL/min (90-130); Glucose 89 mg/dL (65-115); Osmolality Calculated 292 mOsm/kg (285-295); Potassium 4.4 mmol/L (3.5-5.1); Sodium 141 mmol/L (136-145); Total Bilirubin 0.2 mg/dL (0.15-1.2); Total Protein 7.1 g/dL (6.6-8.7)
[2023-09-17] MEDS: D5-NS 0.45% + KCL 20 mEq 20 MEQ/1,000 ML BAG 100 MEQ IV (18:38)
--- NOTE | 2023-09-17 20:09 | PC.NURSE ---
Patient has $713 in chavarria in his wallet. Counted the money with Erik Frederick RN at bedside in front of patient. This nurse offered to lock money up in pyxis, but the patient declined and stated his son would come pick it up this evening. Informed patient that if the son does not fruit picker the money we can lock it up in the pyxis at any time. Bills: 1- $100, 29- $20, 1- $10, 2- $5, 13- $1
[2023-09-17 20:26] VITALS: BP 145/84; PULSE 89; RESP 20; TEMP 36.4; O2SAT 99
[2023-09-17 21:17] VITALS: RESP 18
[2023-09-18] VITALS (23 sets, daily range): BP systolic 124–162; BP diastolic 76–99; PULSE 78–100; RESP 13–96; TEMP 36.2–36.9; O2SAT 95–99
[2023-09-18] MEDS: HYDROcodone-acetaminophen 5-325 mg Tablet 1 TAB PO ×2 (00:05→04:18)
[2023-09-18] MEDS: morphine 4 mg/mL SDV 1 mL IVP ×2 (01:16→05:49)
[2023-09-18] MEDS: D5-NS 0.45% + KCL 20 mEq 20 MEQ/1,000 ML BAG 100 MEQ IV (04:19)
--- NOTE | 2023-09-18 06:33 | P.HP_ITS ---
Providers/Chief Complaint 2 Admitting Physician: Alex Rosado DO Primary Care Provider: Rosendo Alaniz DO Chief Complaint: neck pain History of Present Illness Park Dunlap is a 63 year old male had surgery 3 weeks ago. Sounds like he had a seroma and then had a sudden movement and then the stitches popped open and then drained out. This point the wound is open at this point plan is to take him to the OR this morning for irrigation debridement and closure. Review of Systems 2 General: Reports: 10 or more systems reviewed and unremarkable except in HPI and below Const: Denies: fever(s), chills or body aches Eyes: Denies: change in vision Card: Denies: chest pain, dyspnea on exertion or orthopnea Resp: Denies: dyspnea, productive cough or wheezing GI: Denies: abdominal pain, nausea or vomiting Musc: Denies: neck pain, back pain, extremity pain, joint pain, joint swelling or limited range of motion Skin/Breast: Denies: changes in skin color or dry skin Neuro: Denies: numbness in extremities or weakness in extremities Psych: Denies: anxiety or depression Jasbir/Lymph: Denies: easy bruising or easy bleeding Medications/Allergies Home Medications Medication Instructions Recorded Confirmed Last Taken Type aspirin 81 mg tablet,delayed 81 mg PO DAILY 09/27/19 09/17/23 09/16/23 History release (Aspir-) cyclobenzaprine 5 mg tablet 5 mg PO BID PRN Pain 09/27/19 09/17/23 09/17/23 History lisinopril 5 mg tablet 5 mg PO DAILY 09/27/19 09/17/23 09/17/23 History loratadine 10 mg tablet 10 mg PO DAILY 09/27/19 09/17/23 08/21/23 History omeprazole 20 mg capsule,delayed 20 mg PO DAILY 09/27/19 09/17/23 09/17/23 History release bupropion HCl 150 mg 24 hr tablet, 300 mg PO QAM 10/07/19 09/17/23 09/17/23 History extended release (Wellbutrin XL) hydroxyzine HCl 25 mg tablet 25 mg PO BEDTIME 10/31/20 09/17/23 09/16/23 History Bone Growth Stimulator E0748 #1 ea 08/12/21 09/17/23 Unknown Rx finasteride 5 mg tablet 5 mg PO QDAY #90 tabs 10/21/21 09/17/23 09/17/23 Rx tadalafil 20 mg tablet 20 mg PO DAILY PRN sexual activity 10/21/21 09/17/23 Unknown Rx #20 tabs fluoxetine 20 mg capsule (Prozac) 40 mg PO DAILY 04/27/23 09/17/23 09/17/23 History clofibrate 500 mg capsule 500 mg PO DAILY 08/18/23 09/17/23 09/17/23 History oxycodone 10 mg tablet,crush 10 mg PO BID 7 days #14 tabs 09/03/23 09/17/23 09/17/23 Rx resistant,extended release 12 hr (OxyContin) oxycodone 10 mg tablet,crush 10 mg PO Q12H 30 days #60 tabs 09/08/23 09/17/23 09/17/23 Rx resistant,extended release 12 hr (OxyContin) Allergies Allergy/AdvReac Type Severity Reaction Status Date / Time amoxicillin Allergy ALGY-Rash Verified 09/08/23 12:55 Cephalosporins Allergy Unknown Verified 09/08/23 12:55 hydrochlorothiazide Allergy Unknown Verified 09/08/23 12:55 nicotine Allergy unknown Verified 09/08/23 12:55 Penicillins Allergy ALGY-Rash Verified 09/08/23 12:55 pregabalin [From Lyrica] Allergy Unknown Verified 09/08/23 12:55 simvastatin Allergy Unknown Verified 09/08/23 12:55 PFSH Acute 2 PFSH: Medical History Erectile dysfunction BPH loc w urin obs/LUTS S/P extracorporeal shock wave therapy Bilateral renal stones Ureteral calculus, right Surgical History H/O knee surgery Hx of cataract surgery bilateral History of shoulder surgery Family History Mother , at age 69 Renal failure Father No problems noted. Social History Smoking and tobacco/nicotine status: current every day tobacco/nicotine user Alcohol intake: never Marital status: Current occupational status: retired Vitals/I&O/Wt Last Vital Signs Temp 97.2 F L 09/18/23 06:16 Pulse 84 09/18/23 06:16 Resp 18 09/18/23 06:16 BP 162/99 09/18/23 06:16 Pulse Ox 95 09/18/23 06:16 O2 Del Method Room Air 09/18/23 06:16 09/17/23 09/17/23 09/18/23 14:59 22:59 06:59 Intake Total 490 / 490 968.333 / 1458.333 Output Total 525 / 525 Balance 490 / 490 443.333 / 933.333 Weight last 48 hrs Weight 161 lb 6 oz Weight 159 lb 8 oz Physical Exam 2 Narrative: Open wound in the back of the neck. Data 09/17/23 17:39 09/17/23 17:39 Micro: Microbiology 09/17/23 17:39 Blood Culture - Preliminary Blood SPECIMEN COLLECTED 09/17/23 17:36 Blood Culture - Preliminary Blood SPECIMEN COLLECTED A&P Assessment and plan (1) Status post cervical spinal fusion: Irrigation debridement and closure of wound. Attestations 2 Medical Necessity Statement*: Open wound Coding Level of Care Code Acute Code for Chg Fwd Diagnoses Status post cervical spinal fusion Z98.1
--- NOTE | 2023-09-18 06:40 | P.ANESASSM_ITS ---
Pre-Anesthetic Assessment Height/Weight: Height 1.8 m Weight 73.198 kg Temp Pulse Resp BP Pulse Ox O2 Del Method 97.2 F L 84 18 162/99 95 Room Air 09/18/23 06:16 09/18/23 06:16 09/18/23 06:16 09/18/23 06:16 09/18/23 06:16 09/18/23 06:16 Operation Date: 09/18/23 07:00 Proposed Procedures p Incision and Drainage of the neck(Bilateral) - Alex Rosado DO Last intake: Intake Last Liquid Date 09/17/23 Last Liquid Time 23:30 Last Solid Date 09/17/23 Last Solid Time 22:30 Social Tobacco Exam alert, oriented x 3, clear to auscultation bilaterally and regular rate & rhythm c-collar in place Airway Submandibular: within normal limits Cervical ROM: Other Mallampati: Class I Dentition: full Pulmonary None reported CV/HEM Hypertension None reported Hepatic None reported Musc/skel None reported Neuropsych None reported Anesthetic Plan ASA status: 3 Anesthesia: General Risk of > 500 ml blood loss (7ml/kg in children): No Medications/Allergies Home Medications Medication Instructions Recorded Confirmed Last Taken Type aspirin 81 mg tablet,delayed 81 mg PO DAILY 09/27/19 09/17/23 09/16/23 History release (Aspir-) cyclobenzaprine 5 mg tablet 5 mg PO BID PRN Pain 09/27/19 09/17/23 09/17/23 History lisinopril 5 mg tablet 5 mg PO DAILY 09/27/19 09/17/23 09/17/23 History loratadine 10 mg tablet 10 mg PO DAILY 09/27/19 09/17/23 08/21/23 History omeprazole 20 mg capsule,delayed 20 mg PO DAILY 09/27/19 09/17/23 09/17/23 History release bupropion HCl 150 mg 24 hr tablet, 300 mg PO QAM 10/07/19 09/17/23 09/17/23 History extended release (Wellbutrin XL) hydroxyzine HCl 25 mg tablet 25 mg PO BEDTIME 10/31/20 09/17/23 09/16/23 History Bone Growth Stimulator E0748 #1 ea 08/12/21 09/17/23 Unknown Rx finasteride 5 mg tablet 5 mg PO QDAY #90 tabs 10/21/21 09/17/23 09/17/23 Rx tadalafil 20 mg tablet 20 mg PO DAILY PRN sexual activity 10/21/21 09/17/23 Unknown Rx #20 tabs fluoxetine 20 mg capsule (Prozac) 40 mg PO DAILY 04/27/23 09/17/23 09/17/23 History clofibrate 500 mg capsule 500 mg PO DAILY 08/18/23 09/17/23 09/17/23 History oxycodone 10 mg tablet,crush 10 mg PO BID 7 days #14 tabs 09/03/23 09/17/23 09/17/23 Rx resistant,extended release 12 hr (OxyContin) oxycodone 10 mg tablet,crush 10 mg PO Q12H 30 days #60 tabs 09/08/23 09/17/23 09/17/23 Rx resistant,extended release 12 hr (OxyContin) Allergies Allergy/AdvReac Type Severity Reaction Status Date / Time amoxicillin Allergy ALGY-Rash Verified 09/08/23 12:55 Cephalosporins Allergy Unknown Verified 09/08/23 12:55 hydrochlorothiazide Allergy Unknown Verified 09/08/23 12:55 nicotine Allergy unknown Verified 09/08/23 12:55 Penicillins Allergy ALGY-Rash Verified 09/08/23 12:55 pregabalin [From Lyrica] Allergy Unknown Verified 09/08/23 12:55 simvastatin Allergy Unknown Verified 09/08/23 12:55 Current Medications Generic Name Dose Route Start Last Admin Trade Name Freq PRN Reason Stop Dose Admin Hydrocodone Bitart/Acetaminophen 1 tab 09/17/23 23:27 09/18/23 04:18 Hydrocodone-Acetaminophen 5-325 Mg Tablet PO 1 tab Q4H PRN Administration MODERATE PAIN Potassium Chloride/Dextrose/Sod Cl 20 meq in 1,000 mls @ 100 mls/hr 09/17/23 18:26 09/18/23 04:19 D5-Ns 0.45% + Kcl 20 Meq IV 100 mls/hr .Q10H LUZ MARIA Administration Morphine Sulfate 4 mg 09/17/23 18:26 09/18/23 05:49 Morphine 4 Mg/Ml Sdv 1 Ml IVP 4 mg Q4H PRN Administration SEVERE PAIN PFSH Anesthesia Medical History Erectile dysfunction BPH loc w urin obs/LUTS S/P extracorporeal shock wave therapy Bilateral renal stones Ureteral calculus, right Surgical History H/O knee surgery Hx of cataract surgery bilateral History of shoulder surgery Family History Mother , at age 69 Renal failure Father No problems noted. Social History Smoking and tobacco/nicotine status: current every day tobacco/nicotine user Alcohol intake: never Marital status: Current occupational status: retired Data Anesthesia 09/17/23 17:39 09/17/23 17:39 Short CBC 09/17/23 Range/Units 17:39 WBC 8.23 (3.29-11.43) 10^3/uL Hgb 10.50 L (11.27-16.99) g/dL Hct 33.5 L (37-53) % MCV 94.6 (82-101) fl Plt Count 475 H (157-399) 10^3/cmm Neut % (Auto) 61.9 % Neut # (Auto) 5.09 (1.8-7.7) 10^3/uL BMP 09/17/23 17:39 Sodium 141 Potassium 4.4 Chloride 104 Carbon Dioxide 28 BUN 14 Creatinine 1.2 Glucose 89 Calcium 10.1 Liver Function 09/17/23 Range/Units 17:39 Total Bilirubin 0.2 (0.15-1.2) mg/dL AST 12 (0-40) U/L ALT 10 (0-41) U/L Alkaline Phosphatase 109 (40-130) U/L Albumin 4.0 (3.5-5.2) g/dL Coags 09/17/23 17:39 ESR 26 H C-Reactive Protein 9.0 H Microbiology 09/17/23 17:39 Blood Culture - Preliminary Blood SPECIMEN COLLECTED 09/17/23 17:36 Blood Culture - Preliminary Blood SPECIMEN COLLECTED Cardiac Studies: 2 No Data to Display
[2023-09-18] MEDS: sodium chloride 0.9% 1,000 ML 30 ML IV (06:56)
[2023-09-18] MEDS: clindamycin 600 MG/50 ML PREMIX 100 MG IV ×3 (07:00→22:03)
[2023-09-18] MEDS: lidocaine 1% INJ 10 mL (per mL) INTRADERMA (07:49)
[2023-09-18] MEDS: vancomycin 1,000 MG SDV 1000 MG XX (08:10)
--- NOTE | 2023-09-18 08:46 | PM.OP ---
Operative Report Date of procedure: September 18, 2023 Pre-op diagnosis: Dehiscence of wound approximately 6 inches x 4 inches x 1 inch deep Post-op diagnosis: same Procedure done: 1. Irrigation debridement of dehisced wound down to bone on posterior cervical spine 2. Complex wound closure of wound that is 6 inches long 4 inches wide and 1 inch deep posterior cervical spine Surgeon: Alex Rosado DO Procedure: 1. Irrigation debridement of dehisced wound down to bone of posterior cervical spine 2. Complex wound closure of wound that is 6 inches long 4 inches wide and 1 inch deep posterior cervical spine Patient is brought to the procedure after anesthesia patient is placed in the prone position. All areas impingement well-padded. Patient prepped draped normal sterile fashion. Skin incisions made proximal distal to the previous wound and open. The spinous processes were exposed and the distal end of the wound. The wound was irrigated the spinous processes were debrided with a rongeur. Soft tissue was debrided with sharp dissection removing any tissue that remained to appear necrotic. There is minimal of this is good bleeding tissue good bleeding bed. The wound did not look infected at all. Wound was irrigated with 3 L of saline. Cultures were taken. Wounds then closed in layered fashion with 0 Vicryl 2-0 Vicryl and nylon suture. Sterile dressings were applied patient was transferred to the PACU in stable condition.
--- NOTE | 2023-09-18 10:03 | PC.NURSE ---
pt not in room at shift change. came to room at approx. 0945
[2023-09-18] MEDS: oxyCODONE 10 mg ER (12 HR) Tablet PO ×2 (10:08→18:45)
[2023-09-18] MEDS: finasteride 5 mg Tablet PO (10:46)
[2023-09-18] MEDS: pantoprazole DR 40 mg Tablet PO (10:46)
[2023-09-18] MEDS: docusate sodium 100 mg Capsule PO (10:46)
[2023-09-18] MEDS: aspirin 81 mg EC Tablet PO (10:46)
[2023-09-18] MEDS: fluoxetine 20 mg Capsule 40 MG PO (10:46)
[2023-09-18] MEDS: loratadine 10 mg Tablet PO (10:46)
[2023-09-18] MEDS: lisinopril 5 mg Tablet PO (10:46)
[2023-09-18] MEDS: ketorolac 30 mg/mL INJ IVP ×2 (11:07→21:09)
--- NOTE | 2023-09-18 11:43 | PC.CHAP ---
Pastoral Care Encounter/Spiritual Assessment Type of Contact [] Declined doll wig maker visit [] Patient/Family/Request visit [] Outpatient visit [] Follow-up visit [] Physician referral [] Code/Alert [X] Routine visit [] Staff referral [] Actively dying [] Patient sleeping [] Family support [] [X] Out of room [] Palliative care [] [] Receiving care in room [] Pre-surgical visit [] Trauma [] Long length of stay [] ICU visit [] Other: Relational/Emotional Strength [] Patient feels connected with others/family/visitors/staff [] Distress [] Loneliness/isolation [] Abandonment Spirituality of Patient [] Person of Makenna [] Attends Christianity of their Makenna [] Believes in Prayer [] Reads Bible or Muslim materials [] There are Spiritual issues to be addressed Soils Analyst Interventions [] Prayer [] Active listening [] Non-anxious presence [] Spiritual/emotional support [] Crisis/trauma care [] Spiritual counseling [] Bereavement support [] Provided bereavement packet [] Provided Bible/devotional materials [] Provided toy/stuffed animal, coloring book to patient or family member [] Provided Communion [] Anointing/[place] [] Salvation [] Completed spiritual assessment [] Other: Impact on Illness or Injury [] Angry [] Fearful [] Anxious [] Often cries [] Exhaustion [] Unable to work [] Unable to attend bahai [] Unable to walk/stand [] Unable to read [] Unable to drive [] Unable to eat/drink [] Unable to sleep [] Unable to be with family [] Patient intubated [] Other: Summary Time spent with patient
[2023-09-18] MEDS: oxyCODONE-APAP 10-325 mg Tablet PO ×2 (13:16→21:12)
--- NOTE | 2023-09-18 13:35 | ANE.PACU2 ---
Inpatient post-anesthesia follow up: Airway intact: Yes Vital signs: Temperature 97.2 F Pulse Rate 79 Respiratory Rate 18 Blood Pressure 154/90 Pulse Oximetry 95 Oxygen Delivery Me thod Room Air Oxygen Flow Rate 8 Fraction of Inspir ed Oxygen Hydration adequate: Yes Nausea and vomiting: No Pain level: controlled Mental status: Baseline Additional Comments: no apparent anesthetic complications noted
[2023-09-18] MEDS: hyDROXYzine 25 mg Capsule PO (21:09)
[2023-09-19] VITALS (9 sets, daily range): BP systolic 129–149; BP diastolic 76–88; PULSE 83–93; RESP 16–17; TEMP 36.5–37.9; O2SAT 93–96
[2023-09-19] MEDS: oxyCODONE-APAP 10-325 mg Tablet PO ×3 (01:44→11:46)
[2023-09-19] MEDS: acetaminophen 325 mg Tablet 650 MG PO (04:27)
[2023-09-19] MEDS: buPROPion XL (24 HR) 150 mg Tablet 300 MG PO (06:07)
[2023-09-19] MEDS: clindamycin 600 MG/50 ML PREMIX 100 MG IV (06:08)
[2023-09-19] MEDS: lisinopril 5 mg Tablet PO (08:57)
[2023-09-19] MEDS: finasteride 5 mg Tablet PO (08:57)
[2023-09-19] MEDS: docusate sodium 100 mg Capsule PO (08:57)
[2023-09-19] MEDS: loratadine 10 mg Tablet PO (08:57)
[2023-09-19] MEDS: aspirin 81 mg EC Tablet PO (08:57)
[2023-09-19] MEDS: pantoprazole DR 40 mg Tablet PO (08:58)
[2023-09-19] MEDS: cyclobenzaprine 10 mg Tablet 5 MG PO (08:58)
[2023-09-19] MEDS: oxyCODONE 10 mg ER (12 HR) Tablet PO (08:58)
[2023-09-19] MEDS: fluoxetine 20 mg Capsule 40 MG PO (08:58)
--- NOTE | 2023-09-19 11:36 | PM.DCS ---
Discharge Providers Date of Admission: 09/18/23 14:48 Date of Discharge: September 19, 2023 Attending Provider at Admission: Alex Rosado DO Attending Provider at Discharge: Alex Rosado DO Primary Care Provider: Rosendo Alaniz DO Diagnoses at Discharge Discharge Diagnosis (1) Status post cervical spinal fusion: Status: Acute Reason for Visit Reason for Visit: neck pain Physical Exam Narrative: Patient seen in bed pain controlled ready to be discharged. Discharge Data Studies Completed and Pending Completed Studies During Hospitalization Category Date Time Status XR chest 1V portable [id number] Stat Exams 09/17/23 17:18 Completed Pending at discharge Category Date Time Status Anaerobic Culture Routine Lab 09/18/23 07:51 Results Blood Culture Stat Lab 09/17/23 17:39 Results Wound Culture and Gram Stain Routine Lab 09/18/23 07:51 Results Radiology Impressions Chest X-Ray 09/17/23 17:18 IMPRESSION: No acute findings. Laboratory Results WBC 8.23 10^3/uL (3.29-11.43) 09/17/23 17:39 RBC 3.54 10^6/uL (3.85-5.65) L 09/17/23 17:39 Hgb 10.50 g/dL (11.27-16.99) L 09/17/23 17:39 Hct 33.5 % (37-53) L 09/17/23 17:39 MCV 94.6 fl (82-101) 09/17/23 17:39 MCH 29.7 pg (27-33) 09/17/23 17:39 MCHC 31.3 g/dL (30-55) 09/17/23 17:39 RDW 13.9 % (12.1-15.1) 09/17/23 17:39 Plt Count 475 10^3/cmm (157-399) H 09/17/23 17:39 MPV 8.8 fL (7.4-10.4) 09/17/23 17:39 Neut % (Auto) 61.9 % 09/17/23 17:39 Lymph % (Auto) 27.0 % 09/17/23 17:39 Cobb % (Auto) 8.7 % 09/17/23 17:39 Eos % (Auto) 1.6 % 09/17/23 17:39 Baso % (Auto) 0.6 % 09/17/23 17:39 Neut # (Auto) 5.09 10^3/uL (1.8-7.7) 09/17/23 17:39 Lymph # (Auto) 2.2 10^3/uL (0.8-4.8) 09/17/23 17:39 Cobb # (Auto) 0.7 10^3/uL (0.2-0.9) 09/17/23 17:39 Eos # (Auto) 0.1 10^3/uL (0.0-0.8) 09/17/23 17:39 Baso # (Auto) 0.1 10^3/uL (0.0-0.1) 09/17/23 17:39 Nucleated RBC % (auto) 0 % 09/17/23 17:39 Nucleated RBCs # 0.0 /100WBC 09/17/23 17:39 ESR 26 mm/hr (0-10) H 09/17/23 17:39 Sodium 141 mmol/L (136-145) 09/17/23 17:39 Potassium 4.4 mmol/L (3.5-5.1) 09/17/23 17:39 Chloride 104 mmol/L (98-107) 09/17/23 17:39 Carbon Dioxide 28 mmol/L (22-29) 09/17/23 17:39 Anion Gap 13.4 (5-19) 09/17/23 17:39 BUN 14 mg/dL (8-23) 09/17/23 17:39 Creatinine 1.2 mg/dL (0.7-1.2) 09/17/23 17:39 GFR Calculation 61.1 mL/min (90-130) L 09/17/23 17:39 Glucose 89 mg/dL (65-115) 09/17/23 17:39 Calculated Osmolality 292 mOsm/kg (285-295) 09/17/23 17:39 Calcium 10.1 mg/dL (8.5-10.5) 09/17/23 17:39 Total Bilirubin 0.2 mg/dL (0.15-1.2) 09/17/23 17:39 AST 12 U/L (0-40) 09/17/23 17:39 ALT 10 U/L (0-41) 09/17/23 17:39 Alkaline Phosphatase 109 U/L (40-130) 09/17/23 17:39 C-Reactive Protein 9.0 mg/L (0.0-4.9) H 09/17/23 17:39 Total Protein 7.1 g/dL (6.6-8.7) 09/17/23 17:39 Albumin 4.0 g/dL (3.5-5.2) 09/17/23 17:39 Globulin 3.1 g/dL (1.3-4.6) 09/17/23 17:39 Vitals Last Vital Signs Temp 98.1 F 09/19/23 07:44 Pulse 83 09/19/23 07:44 Resp 16 09/19/23 07:44 BP 129/79 09/19/23 07:44 Pulse Ox 94 09/19/23 07:44 O2 Del Method Room Air 09/19/23 07:44 O2 Flow Rate 8 09/18/23 08:43 Discharge Plan Discharge Patient Disposition: Home Condition: Stable Prescriptions: New oxycodone 10 mg tablet 10 mg PO Q6H PRN (Reason: pain) 7 Days Qty: 30 0RF clindamycin HCl 300 mg capsule 300 mg PO TID 10 Days Qty: 30 0RF Continued aspirin [Aspir-81] 81 mg tablet,delayed release (DR/EC) 81 mg PO DAILY loratadine 10 mg tablet 10 mg PO DAILY lisinopril 5 mg tablet 5 mg PO DAILY omeprazole 20 mg capsule,delayed release(DR/EC) 20 mg PO DAILY cyclobenzaprine 5 mg tablet 5 mg PO BID PRN (Reason: Pain) finasteride 5 mg tablet 5 mg PO QDAY Qty: 90 3RF tadalafil 20 mg tablet 20 mg PO DAILY PRN (Reason: sexual activity) Qty: 20 12RF Rx Instructions: administer approximately 30min before sexual activity; NO NITROGLYCERIN! hydroxyzine HCl 25 mg tablet 25 mg PO BEDTIME fluoxetine [Prozac] 20 mg capsule 40 mg PO DAILY clofibrate 500 mg capsule 500 mg PO DAILY oxycodone [OxyContin] 10 mg tablet,oral only,ext.rel.12 hr 10 mg PO Q12H 30 Days Qty: 60 0RF (DME) Bone Growth Stimulator E0748 See Rx Instructions .Route .MEDSUPPLY Qty: 1 0RF Rx Instructions: As directed oxycodone [OxyContin] 10 mg tablet,oral only,ext.rel.12 hr 10 mg PO BID 7 Days Qty: 14 0RF bupropion HCl [Wellbutrin XL] 150 mg Tablet Extended Release 24 Hr 300 mg PO QAM Discharge Orders: Discharge Order (Routine); Ordered 09/19/23 Ordered By: Alex Rosado Referrals: Rosendo Alaniz, [Primary Care Provider] - Discharge Diet: Advance as tolerated Discharge Activity: Limit activity as instructed Patient Instructions: Acute Wound Care (DC), Opioid Safety, Post Anesthesia Care Activity Restrictions/Additional Instructions: Thank you for choosing [facility] for your care! The following is a list of instructions, from your provider, to follow upon your discharge to ensure you have the optimal recovery from your recent injury or surgery. Anterior Cervical Discectomy and Fusion: What to Expect at Home Your Recovery Follow-up care is a crowder part of your treatment and safety. Be sure to make and go to all appointments, and call your doctor if you are having problems. If you do not already have a follow-up appointment made, call office in the next 1-3 days to make follow up appointment for 2 weeks at [phone]. It is also a good idea to know your test results and keep a list of the medicines you take. You can expect your neck to feel stiff or sore after surgery. This should improve in the weeks after surgery. But it may take 4 to 6 months for you to get better completely. You may have trouble sitting or standing in one position for very long and may need pain medicine in the weeks after your surgery. It may take 4 to 6 weeks to get back to your usual activities, but it may depend on what kind of surgery you had. Your throat will feel sore and it may be difficult to swallow for the first 3 days after your surgery. As long as you can get liquids down without difficulty, this should slowly improve, otherwise call our office or seek medical attention if it becomes increasingly difficult to get anything down including liquids. Avoid hot liquids for first 3-5 days. Soothing foods/liquids such as jello, pudding, and luke warm soups are recommended until swallowing improves. Staying elevated will also help, it's advised you keep propped up at while sleeping to help reduce the swelling. You may use an ice pack directly on your incision or around it on the front of your neck, using a cloth to protect your skin; and a heating pad to the back of your neck as needed. Do not use over the counter anti-inflammatory medications (Ibuprofen, Motrin, Aleve, Advil, etc) Taking these meds after having a fusion can delay fusion rates, we recommend you avoid them for the first 3 months after your surgery[address] Dr. Rosado may advise you to work with a physical therapist to strengthen the muscles around your neck and back - this will be discussed at your follow - up appointments. The pain or numbness you were having in your arms before surgery should get better or go away completely. This care sheet gives you a general idea about how long it will take for you to recover. But each person recovers at a different pace. Follow the steps below to get better as quickly as possible. How can you care for yourself at home? Activity ? Rest when you feel tired. Getting enough sleep will help you recover. ? Try to walk each day. Start by walking a little more than you did the day before. Bit by bit, increase the amount you walk. Walking boosts blood flow and helps prevent pneumonia and constipation. Walking may also decrease your muscle soreness after surgery. ? No lifting anything that is more that 5 pounds. This may include heavy grocery bags and milk containers, a heavy briefcase or backpack, cat litter or dog food bags, a child, or a vacuum wafer cleaner. ? Avoid strenuous activities, such as bicycle riding, jogging, weightlifting, or aerobic exercise, until your doctor says it is okay. ? Do not drive until your follow-up visit after your surgery, or until your doctor says it isokay. ? Avoid taking long car trips for 2 to 4 weeks after surgery. Your neck may become tired and painful from sitting too long in one position. ? You will probably need to take 4 to 6 weeks off from work. It depends on the type of work you do and how you feel. ? You may have sex as soon as you feel able, but avoid positions that put stress on your neck or cause pain. Diet ? You can eat your normal diet. If your stomach is upset, try bland, low-fat foods like plain rice, broiled chicken, toast, and yogurt ? Drink plenty of fluids. If you have kidney, heart, or liver disease and have to limit fluids, talk with your doctor before you increase the amount of fluids you drink. ? You may notice that your bowel movements are not regular right after your surgery. This is common. Try to avoid constipation and straining with bowel movements. You may want to take a fiber supplement every day. If you have not had a bowel movement after a couple of days, ask your doctor about taking a mild laxative. Medicines ? Take pain medicines exactly as directed. 1. If Dr. Rosado gave you a prescription medicine for pain, take lt as prescribed. 2. Do not take two or more pain medicines at the same time unless the doctor told you to. Many pain medicines have acetaminophen, which is Tylenol. Too much acetaminophen {Tylenol) can be harmful. 3. If you think your pain pill is making you sick to your stomach: 4. Take your pills after meals (unless your doctor has told you not to). 5. Ask your Dr. for a different pain pill. Incisioncare ? Remove your dressing 48hours after your surgery. Ok to shower and get the incision wet. Do not overtly wash your incision. When done, pad dry, leave open to air thereafter. Avoid creams and ointments directly on your incision. ? Your sutures in the incision will dissolve and fall out on their own. ? Keep the area clean and dry. You may cover it with a gauze bandage if it weeps or rubs against clothing; if you choose to do this, change the dressing everyday. Other instructions ? Use a heating pad, hot water bottle, or gentle massage on your back to reduce stiffness. Avoid putting heat on your incision When should you call for help? ? Call 911 anytime you think you may need emergency care. For example, call if: ? You pass out (lose consciousness). ? You have sudden chest pain and shortness of breath, or you cough upblood. ? You cannot swallow. ? You have severe pain in your neck or back. ? Call your Dr. or seek immediate medical care if: ? You have pain that does not get better after you take pain pills. ? You have loose stitches, or your incision comes open. ? You have blood or fluid draining from the incision. ? You have signs of infection, such as: 1. Increased pain, swelling, warmth, or redness. 2. Red streaks leading from the site. 3. Pus draining from the site. 4. Swollen lymph nodes in your neck or armpits. 5. A fever. ? You have severe pain in your arms. ? You have new or increased weakness or numbness in your arms. ? Watch closely for any changes in your health, and be sure to contact your doctor if: ? You do not have a bowel movement after taking a laxative. Discharge Attestations Time Spent in Discharge Care*: less than 30 min Quality Metrics Clinical Quality Measures [ No reported AMI, CVA or VTE this stay] Coding Level of Care Code Acute Code for Chg Fwd Diagnoses Status post cervical spinal fusion Z98.1
== END 2023-09-19 13:40 | disposition home or self-care (01) | DRG 908 ==
LOC: ER 17:53 → MEDSURG 18:47
PROVIDERS: Admitting Provider Orthopaedic Surgery; Emergency Provider Family Medicine; PCP Emergency Medicine Emergency Medical Services; Visit Provider Orthopaedic Surgery
PROC: 0PD30ZZ Extraction of Cervical Vertebra, Open Approach (ICD-10-PCS; principal; 2023-09-18 07:00)
DX: T81.32XA Disruption of internal operation (surgical) wound, not elsewhere classified, initial encounter (principal); N13.8 Other obstructive and reflux uropathy; Y83.1 Surgical operation with implant of artificial internal device as the cause of abnormal reaction of the patient, or of later complication, without mention of misadventure at the time of the procedure; Y92.9 Unspecified place or not applicable; N40.1 Benign prostatic hyperplasia with lower urinary tract symptoms; N52.9 Male erectile dysfunction, unspecified; F17.210 Nicotine dependence, cigarettes, uncomplicated; Z98.1 Arthrodesis status
CPT/HCPCS: 36415; 71045; 80053; 85025; 85651; 86140; 87040; 87070; 87075; 87205; 93005; 96365; 96375; 97161; 99285; G0378; J1100; J1885; J2270; J2360; J2371; J2405; J2710; J3010; J3370; J3490; J7030; J7050

== ENCOUNTER → 2023-10-06 10:59 | Outpatient (BNVA) | payer OTHER, SELFPAY | PROVIDERS: PCP Emergency Medicine Emergency Medical Services; Visit Provider Orthopaedic Surgery | DX: Z98.1 Arthrodesis status (principal) | CPT/HCPCS: 72040; 99024 ==

== ENCOUNTER → 2023-12-30 14:00 | Outpatient (BNVA) | payer OTHER, SELFPAY | PROVIDERS: PCP Emergency Medicine Emergency Medical Services; Referring Provider Nurse Practitioner Family; Visit Provider Surgery | DX: Z12.11 Encounter for screening for malignant neoplasm of colon (principal) | CPT/HCPCS: 99204 ==

== ENCOUNTER 2024-01-07 09:12 | Day surgery (SDC) | payer OTHER, SELFPAY ==
[2024-01-07 09:25] VITALS: BMI 21.4
--- NOTE | 2024-01-07 09:33 | P.HPUD_ITS ---
Surgery/Procedure H&P Update DATE OF PROCEDURE: January 07, 2024 DATE H&P PERFORMED: 12/30/23 H&P UPDATE INFORMATION: I have reviewed H&P completed within last 30 days, I have examined patient prior to procedure, No changes to prior documentation and H&P is in [facility] [place] on date indicated PLANNED PROCEDURE: Operation Date: 01/07/24 10:20 Proposed Procedures p Colonoscopy 84717, G0105, Z12.11(Not Applicable) - Luis Eduardo Long MD
[2024-01-07] MEDS: sodium chloride 0.9% 1,000 ML 30 ML IV (09:35)
--- NOTE | 2024-01-07 09:43 | ANES.PREANE2 ---
Pre-Anesthetic Assessment Height/Weight: Height 1.83 m Weight 71.668 kg Preop Diagnosis: screening Operation Date: 01/07/24 10:20 Proposed Procedures p Colonoscopy 46546, G0105, Z12.11(Not Applicable) - Luis Eduardo Long MD Familial anesthetic complications: slow to wake up Was Beta Paulina taken within 24 hours: N/A Was Clonidine taken within 24 hours: N/A Last intake: Intake Last Liquid Date 01/06/24 Last Liquid Time 22:00 Last Solid Date 01/05/24 Social No alcohol 3 cigarettes per day pack(s) per day Exam alert, oriented x 3, clear to auscultation bilaterally and regular rate & rhythm Airway Submandibular: within normal limits Cervical ROM: Other Mallampati: Class II Dentition: false Comments: Comments: limited neck ROM History/ROS No significant history except as noted and No significant complaints Pulmonary None reported CV/HEM Hypertension None reported Hepatic None reported GI Gastroesophageal Reflux Disease Metabolic None reported Musc/skel Lower Back Pain Neuropsych None reported Anesthetic Plan ASA status: 3 Anesthesia: MAC Risk of > 500 ml blood loss (7ml/kg in children): No Medications/Allergies Home Medications Medication Instructions Recorded Confirmed Last Taken Type aspirin 81 mg tablet,delayed 81 mg PO DAILY 09/27/19 01/05/24 01/06/24 History release (Aspir-) lisinopril 5 mg tablet 5 mg PO DAILY 09/27/19 01/05/24 01/06/24 History loratadine 10 mg tablet 10 mg PO DAILY 09/27/19 01/05/24 01/06/24 History omeprazole 20 mg capsule,delayed 20 mg PO DAILY 09/27/19 01/05/24 01/06/24 History release bupropion HCl 150 mg 24 hr tablet, 300 mg PO QAM 10/07/19 01/05/24 01/06/24 History extended release (Wellbutrin XL) hydroxyzine HCl 25 mg tablet 25 mg PO BEDTIME 10/31/20 01/05/24 01/06/24 History Bone Growth Stimulator E0748 #1 ea 08/12/21 01/05/24 Unknown Rx finasteride 5 mg tablet 5 mg PO QDAY #90 tabs 10/21/21 01/05/24 01/06/24 Rx fluoxetine 20 mg capsule (Prozac) 40 mg PO DAILY 04/27/23 01/05/24 01/06/24 History clofibrate 500 mg capsule 500 mg PO DAILY 08/18/23 01/05/24 01/06/24 History oxycodone 10 mg tablet,crush 10 mg PO Q12H 30 days #60 tabs 09/08/23 01/05/24 01/07/24 Rx resistant,extended release 12 hr (OxyContin) methocarbamol 750 mg tablet 750 mg PO Q8H 01/05/24 01/05/24 01/06/24 History Allergies Allergy/AdvReac Type Severity Reaction Status Date / Time amoxicillin Allergy ALGY-Rash Verified 01/07/24 09:29 Cephalosporins Allergy Unknown Verified 01/07/24 09:29 hydrochlorothiazide Allergy Unknown Verified 01/07/24 09:29 nicotine Allergy unknown Verified 01/07/24 09:29 Penicillins Allergy ALGY-Rash Verified 01/07/24 09:29 pregabalin [From Lyrica] Allergy Unknown Verified 01/07/24 09:29 simvastatin Allergy Unknown Verified 01/07/24 09:29 Current Medications Generic Name Dose Route Start Last Admin Trade Name Freq PRN Reason Stop Dose Admin Sodium Chloride 1,000 mls @ 30 mls/hr 01/07/24 09:30 01/07/24 09:35 Sodium Chloride 0.9% IV 30 mls/hr .Q24H LUZ MARIA Administration PFSH Anesthesia Medical History Erectile dysfunction BPH loc w urin obs/LUTS S/P extracorporeal shock wave therapy Bilateral renal stones Ureteral calculus, right Surgical History H/O knee surgery Hx of cataract surgery bilateral History of shoulder surgery Family History Mother , at age 69 Renal failure Father No problems noted. Social History Smoking and tobacco/nicotine status: current some day tobacco/nicotine user Alcohol intake: never Marital status: Current occupational status: retired Data Anesthesia Cardiac Studies: No Data to Display
[2024-01-07 10:42] VITALS: BP 111/73; BP 144/94; PULSE 86; PULSE 98; RESP 18; TEMP 36.1; TEMP 36.5; O2SAT 96
[2024-01-07 10:59] VITALS: BP 160/103; PULSE 86; RESP 18; O2SAT 98
--- NOTE | 2024-01-07 12:45 | ANE.PACU2 ---
Inpatient post-anesthesia follow up: Airway intact: Yes Vital signs: Temperature 97.0 F Pulse Rate 86 Respiratory Rate 18 Blood Pressure 160/103 Pulse Oximetry 98 Oxygen Delivery Me thod Room Air Oxygen Flow Rate 2 Fraction of Inspir ed Oxygen Hydration adequate: Yes Nausea and vomiting: No Pain level: 1 Mental status: Baseline
--- NOTE | 2024-01-07 12:56 | SUR.PHASEII ---
1245 Walked the pt down to the Surgical services entrance to meet his son for ride home. 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 Pt verbalized that he understood. Pt went to his truck to get a jacket out, then I assisted him into his son's car. They drove across the street to the other parking lot and both got out and walked toward the hospital main entrance.
== END 2024-01-07 12:45 | disposition home or self-care (01) ==
PROVIDERS: PCP Nurse Practitioner; Visit Provider Surgery
PROC: 0DJD8ZZ Inspection of Lower Intestinal Tract, Via Natural or Artificial Opening Endoscopic (ICD-10-PCS; CPT 45378; principal; 2024-01-07 10:20)
DX: Z12.11 Encounter for screening for malignant neoplasm of colon (principal); Z79.82 Long term (current) use of aspirin; N40.1 Benign prostatic hyperplasia with lower urinary tract symptoms; N13.8 Other obstructive and reflux uropathy; D12.8 Benign neoplasm of rectum; K64.8 Other hemorrhoids; F17.210 Nicotine dependence, cigarettes, uncomplicated; I10 Essential (primary) hypertension; K21.9 Gastro-esophageal reflux disease without esophagitis
CPT/HCPCS: 45385; 88305; J2704; J7030